=== PATIENT | female | born 1995 | race Caucasian/White ===

== ENCOUNTER → 2016-07-08 | Outpatient (CLI) | payer OTHER ==
[2016-07-08 17:56] LABS: Hepatitis B Surface Ag Index 0.05
[2016-07-09 01:03] LABS: HSV I IgG Interp NEGATIVE (NEGATIVE); HSV II IgG Interp NEGATIVE (NEGATIVE)
[2016-07-09 01:05] LABS: Treponemal Ab Non-Reactive (Non-Reactive)
[2016-07-09 07:59] LABS: HIV-1/HIV-2 Ab Screen NONREAC (NON REAC)
== END | disposition home or self-care (01) ==
LOC: LABWHC1 16:31
PROVIDERS: ATTEND Obstetrics & Gynecology
DX: Z11.3 Encounter for screening for infections with a predominantly sexual mode of transmission (principal)
CPT/HCPCS: 36415; 86695; 86696; 86780; 87340; 87389

== ENCOUNTER 2018-02-20 12:48 | Emergency (ER) | payer OTHER ==
[2018-02-20 13:17] VITALS: BP 111/75; PULSE 92; RESP 18; TEMP 98.3
[2018-02-20] MEDS ORDERED: SODIUM CHLORIDE 0.9% 1,000 ML IV STA ×2 (13:47)
[2018-02-20] MEDS ORDERED: MORPHINE SULFATE 4 MG/ML SYRINGE IV STA (13:47)
[2018-02-20] MEDS ORDERED: ONDANSETRON 4 MG/2 ML VIAL IVP STA (13:47)
[2018-02-20] MEDS ORDERED: diphenhydrAMINE 50 MG/ML 1 ML VIAL IVP STA (13:48)
[2018-02-20] MEDS ORDERED: PANTOPRAZOLE 40 MG/10 ML VIAL IVP STA (13:48)
--- NOTE | 2018-02-20 13:50 | ED ---
Nausea/Vomiting/Diarrhea HPI - General Chief complaint: Nausea/Vomiting/Diarrhea Stated complaint: Headache/Vomitting Time Seen by Provider: 02/20/18 13:46 Source: patient, RN notes reviewed, old records reviewed Mode of arrival: ambulatory Limitations: no limitations - History of Present Illness Initial comments: This is a 22-year-old female the ER for evaluation of one week of headache and nausea and vomiting. Persistent headache persistent nausea persistent vomiting persistent weakness not feeling well. Patient denies any recent change in medications takes no medications currently does have history of IBS. She has diarrhea but always has diarrhea. No fevers no travel history no sick contacts. Denies drugs or alcohol MD complaint: nausea, vomiting, diarrhea, abdominal pain -: days(s) (7) Description of Vomiting: bilious Description of Diarrhea: mucous Associated Abdominal Pain: Yes Location: diffuse Radiation: none Severity: moderate Severity scale (1-10): 4 Quality: aching Consistency: constant Improves with: none Worsens with: none Associated Symptoms: denies other symptoms - Related Data Home Medications Medication Instructions Recorded Confirmed Glycopyrrolate 1 mg PO BID 02/20/18 02/20/18 Norgestimate-Ethinyl Estradiol 1 tab PO DAILY 02/20/18 02/20/18 [Tri-Sprintec Tablet] Allergies Allergy/AdvReac Type Severity Reaction Status Date / Time No Known Allergies Allergy Verified 02/20/18 13:49 Review of Systems ROS Statement: Those systems with pertinent positive or pertinent negative responses have been documented in the HPI. ROS Other: All systems not noted in ROS Statement are negative. Past Medical History Additional Past Medical History / Comment(s): IBS History of Any Multi-Drug Resistant Organisms: None Reported Past Surgical History: No Surgical Hx Reported Past Psychological History: Anxiety, Depression Smoking Status: Former smoker Past Alcohol Use History: Occasional Past Drug Use History: None Reported General Exam Limitations: no limitations General appearance: alert, in no apparent distress Head exam: Present: atraumatic, normocephalic, normal inspection Eye exam: Present: normal appearance, PERRL, EOMI. Absent: scleral icterus, conjunctival injection, periorbital swelling ENT exam: Present: normal exam, mucous membranes moist Neck exam: Present: normal inspection. Absent: tenderness, meningismus, lymphadenopathy Respiratory exam: Present: normal lung sounds bilaterally. Absent: respiratory distress, wheezes, rales, rhonchi, stridor Cardiovascular Exam: Present: regular rate, normal rhythm, normal heart sounds. Absent: systolic murmur, diastolic murmur, rubs, gallop, clicks GI/Abdominal exam: Present: soft, normal bowel sounds. Absent: distended, tenderness, guarding, rebound, rigid Extremities exam: Present: normal inspection, full ROM, normal capillary refill. Absent: tenderness, pedal edema, joint swelling, calf tenderness Back exam: Present: normal inspection Neurological exam: Present: alert, oriented X3, CN II-XII intact Psychiatric exam: Present: normal affect, normal mood Skin exam: Present: warm, dry, intact, normal color. Absent: rash Course Vital Signs 02/20/18 13:15 Temperature 98.3 F Pulse Rate 92 Respiratory 18 Rate Blood Pressure 111/75 O2 Sat by Pulse 100 Oximetry - Reevaluation(s) Reevaluation #1: 02/20/18 17:24 Medical record is reviewed Reevaluation #2: 02/20/18 17:24 Patient continuing any persistent medication, pain medication Reevaluation #3: 02/20/18 17:24 Pain is controlled Medical Decision Making - Medical Decision Making 22 female the ER with multiple nonspecific complaints. Likely underlying viral illness, labwork is normal CT brain is negative. Patient given nausea medication from will be discharged - Lab Data Result diagrams: 02/20/18 14:05 02/20/18 14:05 Lab Results 02/20/18 02/20/18 02/20/18 Range/Units 14:05 14:05 14:05 WBC 6.0 (3.8-10.6) k/uL RBC 4.49 (3.80-5.40) m/uL Hgb 14.1 (11.4-16.0) gm/dL Hct 42.8 (34.0-46.0) % MCV 95.3 (80.0-100.0) fL MCH 31.3 (25.0-35.0) pg MCHC 32.9 (31.0-37.0) g/dL RDW 12.6 (11.5-15.5) % Plt Count 312 (150-450) k/uL Neutrophils % 39 % Lymphocytes % 44 % Monocytes % 7 % Eosinophils % 6 % Basophils % 1 % Neutrophils # 2.3 (1.3-7.7) k/uL Lymphocytes # 2.6 (1.0-4.8) k/uL Monocytes # 0.4 (0-1.0) k/uL Eosinophils # 0.4 (0-0.7) k/uL Basophils # 0.1 (0-0.2) k/uL Sodium 145 (137-145) mmol/L Potassium 4.2 (3.5-5.1) mmol/L Chloride 108 H (98-107) mmol/L Carbon Dioxide 25 (22-30) mmol/L Anion Gap 12 mmol/L BUN 7 (7-17) mg/dL Creatinine 0.77 (0.52-1.04) mg/dL Est GFR (CKD-EPI)AfAm >90 (>60 ml/min/1.73 sqM) Est GFR (CKD-EPI)NonAf >90 (>60 ml/min/1.73 sqM) Glucose 80 (74-99) mg/dL Calcium 10.1 (8.4-10.2) mg/dL Phosphorus 3.2 (2.5-4.5) mg/dL Magnesium 2.0 (1.6-2.3) mg/dL Total Bilirubin 1.0 (0.2-1.3) mg/dL AST 27 (14-36) U/L ALT 23 (9-52) U/L Alkaline Phosphatase 44 (38-126) U/L Total Creatine Kinase 152 H (30-135) U/L CK-MB (CK-2) 0.2 (0.0-2.4) ng/mL CK-MB (CK-2) Rel Index 0.1 Total Protein 8.0 (6.3-8.2) g/dL Albumin 4.6 (3.5-5.0) g/dL Lipase 55 (23-300) U/L Urine Color Urine Appearance (Clear) Urine pH (5.0-8.0) Ur Specific [place] (1.001-1.035) Urine Protein (Negative) Urine Glucose (UA) (Negative) Urine Ketones (Negative) Urine Blood (Negative) Urine Nitrite (Negative) Urine Bilirubin (Negative) Urine Urobilinogen (<2.0) mg/dL Ur Leukocyte Esterase (Negative) Urine HCG, Qual (Not Detectd) 02/20/18 02/20/18 Range/Units 14:45 14:45 WBC (3.8-10.6) k/uL RBC (3.80-5.40) m/uL Hgb (11.4-16.0) gm/dL Hct (34.0-46.0) % MCV (80.0-100.0) fL MCH (25.0-35.0) pg MCHC (31.0-37.0) g/dL RDW (11.5-15.5) % Plt Count (150-450) k/uL Neutrophils % % Lymphocytes % % Monocytes % % Eosinophils % % Basophils % % Neutrophils # (1.3-7.7) k/uL Lymphocytes # (1.0-4.8) k/uL Monocytes # (0-1.0) k/uL Eosinophils # (0-0.7) k/uL Basophils # (0-0.2) k/uL Sodium (137-145) mmol/L Potassium (3.5-5.1) mmol/L Chloride (98-107) mmol/L Carbon Dioxide (22-30) mmol/L Anion Gap mmol/L BUN (7-17) mg/dL Creatinine (0.52-1.04) mg/dL Est GFR (CKD-EPI)AfAm (>60 ml/min/1.73 sqM) Est GFR (CKD-EPI)NonAf (>60 ml/min/1.73 sqM) Glucose (74-99) mg/dL Calcium (8.4-10.2) mg/dL Phosphorus (2.5-4.5) mg/dL Magnesium (1.6-2.3) mg/dL Total Bilirubin (0.2-1.3) mg/dL AST (14-36) U/L ALT (9-52) U/L Alkaline Phosphatase (38-126) U/L Total Creatine Kinase (30-135) U/L CK-MB (CK-2) (0.0-2.4) ng/mL CK-MB (CK-2) Rel Index Total Protein (6.3-8.2) g/dL Albumin (3.5-5.0) g/dL Lipase (23-300) U/L Urine Color Yellow Urine Appearance Clear (Clear) Urine pH 6.0 (5.0-8.0) Ur Specific [place] 1.015 (1.001-1.035) Urine Protein Negative (Negative) Urine Glucose (UA) Negative (Negative) Urine Ketones Negative (Negative) Urine Blood Negative (Negative) Urine Nitrite Negative (Negative) Urine Bilirubin Negative (Negative) Urine Urobilinogen <2.0 (<2.0) mg/dL Ur Leukocyte Esterase Negative (Negative) Urine HCG, Qual Not Detected (Not Detectd) - Radiology Data Radiology results: report reviewed (CT brain is negative for acute disease), image reviewed Disposition Clinical Impression: Abdominal pain, Dehydration, Gastroenteritis, Headache Disposition: HOME SELF-CARE Instructions: Acute Nausea and Vomiting (ED), Acute Headache (ED) Is patient prescribed a controlled substance at d/c from ED?: No Referrals: None,Stated [Primary Care Provider] - 1-2 days
[2018-02-20 14:52] LABS: Basophils # (A) 0.1 k/uL (0-0.2); Basophils % (A) 1 %; Eosinophils # (A) 0.4 k/uL (0-0.7); Eosinophils % (A) 6 %; HCT 42.8 % (34.0-46.0); HGB 14.1 gm/dL (11.4-16.0); Lymphocytes # (A) 2.6 k/uL (1.0-4.8); Lymphocytes % (A) 44 %; MCH 31.3 pg (25.0-35.0); MCHC 32.9 g/dL (31.0-37.0); MCV 95.3 fL (80.0-100.0); Mean Platelet Volume 6.6; Monocytes # (A) 0.4 k/uL (0-1.0); Monocytes % (A) 7 %; Neutrophils # (A) 2.3 k/uL (1.3-7.7); Neutrophils % (A) 39 %; Platelet Count 312 k/uL (150-450); RBC 4.49 m/uL (3.80-5.40); RDW 12.6 % (11.5-15.5)
[2018-02-20 15:00] LABS: Appearance,Urine Clear (Clear); Bilirubin,Urine Negative (Negative); Blood,Urine Negative (Negative); Color,Urine Yellow; Glucose,Urine (UA) Negative (Negative); Ketones,Urine Negative (Negative); Leukocyte Esterase,Urine Negative (Negative); Nitrite,Urine Negative (Negative); Protein,Urine Negative (Negative); Specific Gravity,Urine 1.015 (1.001-1.035); Urobilinogen,Urine <2.0 mg/dL (<2.0)
[2018-02-20 15:14] LABS: ALT 23 U/L (9-52); AST 27 U/L (14-36); Albumin 4.6 g/dL (3.5-5.0); Alkaline Phosphatase 44 U/L (38-126); Anion Gap 12 mmol/L; Blood Urea Nitrogen 7 mg/dL (7-17); Calcium 10.1 mg/dL (8.4-10.2); Carbon Dioxide 25 mmol/L (22-30); Chloride 108 mmol/L (98-107); Glucose 80 mg/dL (74-99); Lipase 55 U/L (23-300); Phosphorus 3.2 mg/dL (2.5-4.5); Potassium 4.2 mmol/L (3.5-5.1); Sodium 145 mmol/L (137-145)
[2018-02-20 15:21] LABS: Creatine Kinase MB 0.2 ng/mL (0.0-2.4)
[2018-02-20] MEDS ORDERED: ACETAMINOPHEN IV (For NPO) 1,000 MG in EMPTY BAG 1 BAG IVPB STA (15:50)
[2018-02-20] MEDS ORDERED: METOCLOPRAMIDE 5 MG/ML 2 ML VIAL IVP STA (15:50)
--- NOTE | 2018-02-20 17:08 | CT ---
EXAMINATION TYPE: CT brain wo con DATE OF EXAM: 02/20/2018 COMPARISON: None HISTORY: headache, vomiting CT DLP: 1086.4 mGycm. Automated Exposure Control for Dose Reduction was Utilized. TECHNIQUE: CT scan of the head is performed without contrast. FINDINGS: There is no acute intracranial hemorrhage, mass effect, or midline shift identified. The ventricles and sulci are within normal limits in size. The globes are intact and the visualized sin uses are clear. IMPRESSION: No acute intracranial hemorrhage, mass effect, or midline shift is seen.
[2018-02-20] MEDS ORDERED: KETOROLAC 30 MG/ML 1 ML VIAL IVP STA (17:20)
[2018-02-20] MEDS ORDERED: DEXAMETHASONE SOD PHOSPHATE 10 MG/ML 1 ML VIAL IV STA (17:20)
== END 2018-02-20 18:04 | disposition home or self-care (01) ==
LOC: EC 12:48
DX: K52.9 Noninfective gastroenteritis and colitis, unspecified (principal); E86.0 Dehydration; R51 Headache; Z79.899 Other long term (current) drug therapy; Z87.891 Personal history of nicotine dependence
CPT/HCPCS: 36415; 80053; 82550; 82553; 83690; 83735; 84100; 85025; 81003; 81025; 87086; 70450; 99284; 96374; 96375 ×6; 96361 ×4; J2270; J1200; J1100; J2765; J2405; J1885; C9113

== ENCOUNTER 2018-02-23 16:50 | Emergency (ER) | payer OTHER ==
[2018-02-23] MEDS ORDERED: METOCLOPRAMIDE 5 MG/ML 2 ML VIAL IVP STA (17:22)
[2018-02-23] MEDS ORDERED: SODIUM CHLORIDE 0.9% 1,000 ML IV STA (17:22)
[2018-02-23] MEDS ORDERED: KETOROLAC 30 MG/ML 1 ML VIAL IVP STA (17:22)
[2018-02-23] MEDS ORDERED: diphenhydrAMINE 50 MG CAP PO STA (17:22)
--- NOTE | 2018-02-23 17:27 | ED ---
General Adult HPI - General Source: patient, RN notes reviewed Mode of arrival: ambulatory Limitations: no limitations <Darian Jenkins - Last Filed: 02/23/18 19:20> <Earl Resendiz - Last Filed: 02/23/18 21:32> - General Chief complaint: Psychiatric Symptoms Stated complaint: HEADACHE X 2 WEEKS + FLU SYMPTOMS Time Seen by Provider: 02/23/18 17:00 - History of Present Illness Initial comments: 22-year-old female since to the emergency department for multiple complaints. Patient states she has had a headache for 2 weeks. Patient was seen here in the emergency department a few days ago and states morphine helped with her pain. Patient states her neck feels tight and she feels like she has a sharp pain across her forehead. Patient states she has been increasingly stressed at home lately. She states that because of this she has developed suicidal thoughts. She states she has had suicidal thoughts and she was then years old but these have worsened. She has a history of anxiety and depression not being treated for this. Patient states she has cut her bilateral arms in the past few days and has a plan of suicide of shooting herself. Patient does have guns at home but they're locked and she does not know the code. Patient denies dysuria, states bowel movements are normal with the last one being earlier today. She states she has been nauseous and had mild abdominal pain over the past few days as well. Patient has no other complaints at this time including shortness of breath, chest pain, headache, or visual changes. (Darian Jenkins) - Related Data Home Medications Medication Instructions Recorded Confirmed Glycopyrrolate 1 mg PO BID 02/20/18 02/23/18 Previous Rx's Medication Instructions Recorded Ondansetron Odt [Zofran ODT] 4 mg PO Q8HR PRN #30 tab 02/20/18 Allergies Allergy/AdvReac Type Severity Reaction Status Date / Time No Known Allergies Allergy Verified 02/23/18 17:09 Review of Systems ROS Other: All systems not noted in ROS Statement are negative. <Darian Jenkins - Last Filed: 02/23/18 19:20> ROS Other: All systems not noted in ROS Statement are negative. <Earl Resendiz - Last Filed: 02/23/18 21:32> ROS Statement: Those systems with pertinent positive or pertinent negative responses have been documented in the HPI. Past Medical History Additional Past Medical History / Comment(s): IBS History of Any Multi-Drug Resistant Organisms: None Reported Past Surgical History: No Surgical Hx Reported Past Psychological History: Anxiety, Depression Smoking Status: Former smoker Past Alcohol Use History: Occasional Past Drug Use History: None Reported <Darian Jenkins P - Last Filed: 02/23/18 19:20> General Exam Limitations: no limitations General appearance: alert, in no apparent distress Head exam: Present: atraumatic, normocephalic, normal inspection Eye exam: Present: normal appearance, PERRL, EOMI. Absent: scleral icterus, conjunctival injection, periorbital swelling ENT exam: Present: normal exam, mucous membranes moist Neck exam: Present: normal inspection, full ROM. Absent: tenderness, meningismus, lymphadenopathy Respiratory exam: Present: normal lung sounds bilaterally. Absent: respiratory distress, wheezes, rales, rhonchi, stridor Cardiovascular Exam: Present: regular rate, normal rhythm, normal heart sounds. Absent: systolic murmur, diastolic murmur, rubs, gallop, clicks GI/Abdominal exam: Present: soft, tenderness (Mild generalized abdominal tenderness, negative Rovsing sign, negative Diehl sign), normal bowel sounds. Absent: distended, guarding, rebound, rigid Extremities exam: Present: other (Patient has superficial lacerations noted to the bilateral volar forearms.) Neurological exam: Present: alert, oriented X3, CN II-XII intact Psychiatric exam: Present: suicidal ideation. Absent: homicidal ideation <AliceDarian P - Last Filed: 02/23/18 19:20> General appearance: alert, in no apparent distress Head exam: Present: atraumatic, normocephalic, normal inspection Eye exam: Present: normal appearance, PERRL, EOMI. Absent: scleral icterus, conjunctival injection, periorbital swelling ENT exam: Present: normal exam, mucous membranes moist Neck exam: Present: normal inspection. Absent: tenderness, meningismus, lymphadenopathy Respiratory exam: Present: normal lung sounds bilaterally. Absent: respiratory distress, wheezes, rales, rhonchi, stridor Cardiovascular Exam: Present: regular rate, normal rhythm, normal heart sounds. Absent: systolic murmur, diastolic murmur, rubs, gallop, clicks GI/Abdominal exam: Present: soft, normal bowel sounds. Absent: distended, tenderness, guarding, rebound, rigid Extremities exam: Present: normal inspection, full ROM, normal capillary refill. Absent: tenderness, pedal edema, joint swelling, calf tenderness Back exam: Present: normal inspection Neurological exam: Present: alert, oriented X3, CN II-XII intact Psychiatric exam: Present: normal affect, normal mood Skin exam: Present: warm, dry, intact, normal color. Absent: rash <Earl Resendiz - Last Filed: 02/23/18 21:32> Course <Darian Jenkins - Last Filed: 02/23/18 19:20> <Earl Resendiz - Last Filed: 02/23/18 21:32> Vital Signs 02/23/18 02/23/18 16:56 20:29 Temperature 98.1 F Pulse Rate 95 62 Respiratory 18 18 Rate Blood Pressure 96/56 113/67 O2 Sat by Pulse 96 97 Oximetry - Reevaluation(s) Reevaluation #1: 02/23/18 21:31 Medical clear for psychiatric treatment (Earl Resendiz) Medical Decision Making - Lab Data Result diagrams: 02/23/18 17:45 02/23/18 17:45 <Darian Jenkins - Last Filed: 02/23/18 19:20> - Lab Data Result diagrams: 02/23/18 17:45 02/23/18 17:45 <Earl Resendiz - Last Filed: 02/23/18 21:32> - Medical Decision Making Patient presents for multiple complaints. She has had a headache for 2 weeks, no focal neuro deficits. Recently had a CAT scan 3 days ago, report was reviewed and negative. Patient has a lot of tenderness in the lateral aspect of the neck and states she has been under a lot of stress lately. This is likely tension headache. Patient has generalized abdominal abdominal tenderness , labs are within normal limits. Patient is having normal bowel movements, no concern for obstruction. She was eating [employer] as she was being triaged. Patient is suicidal and will be seen by psychology. (Darian Jenkins) 22-year-old female seen and evaluated with psychiatry, patient be transferred for inpatient psychiatric admission (Earl Resendiz) - Lab Data Lab Results 02/23/18 02/23/18 Range/Units 17:45 17:45 WBC 5.1 (3.8-10.6) k/uL RBC 4.26 (3.80-5.40) m/uL Hgb 13.1 (11.4-16.0) gm/dL Hct 40.5 (34.0-46.0) % MCV 95.2 (80.0-100.0) fL MCH 30.6 (25.0-35.0) pg MCHC 32.2 (31.0-37.0) g/dL RDW 12.7 (11.5-15.5) % Plt Count 301 (150-450) k/uL Neutrophils % 40 % Lymphocytes % 47 % Monocytes % 7 % Eosinophils % 2 % Basophils % 1 % Neutrophils # 2.0 (1.3-7.7) k/uL Lymphocytes # 2.4 (1.0-4.8) k/uL Monocytes # 0.4 (0-1.0) k/uL Eosinophils # 0.1 (0-0.7) k/uL Basophils # 0.1 (0-0.2) k/uL Sodium 144 (137-145) mmol/L Potassium 3.8 (3.5-5.1) mmol/L Chloride 109 H (98-107) mmol/L Carbon Dioxide 25 (22-30) mmol/L Anion Gap 10 mmol/L BUN 14 (7-17) mg/dL Creatinine 0.80 (0.52-1.04) mg/dL Est GFR (CKD-EPI)AfAm >90 (>60 ml/min/1.73 sqM) Est GFR (CKD-EPI)NonAf >90 (>60 ml/min/1.73 sqM) Glucose 76 (74-99) mg/dL Calcium 10.0 (8.4-10.2) mg/dL Total Bilirubin 0.6 (0.2-1.3) mg/dL AST 34 (14-36) U/L ALT 26 (9-52) U/L Alkaline Phosphatase 44 (38-126) U/L Total Protein 7.3 (6.3-8.2) g/dL Albumin 4.3 (3.5-5.0) g/dL Amylase 105 (30-110) U/L Lipase 103 (23-300) U/L Disposition <Darian Jenkins P - Last Filed: 02/23/18 19:20> Is patient prescribed a controlled substance at d/c from ED?: No <Earl Resendiz - Last Filed: 02/23/18 21:32> Clinical Impression: Depression, Suicidal ideation Disposition: TRANSFER TO PSYCH HOSP/UNIT Condition: Fair Referrals: None,Stated [Primary Care Provider] - 1-2 days
[2018-02-23 17:55] LABS: Basophils # (A) 0.1 k/uL (0-0.2); Basophils % (A) 1 %; Eosinophils # (A) 0.1 k/uL (0-0.7); Eosinophils % (A) 2 %; HCT 40.5 % (34.0-46.0); HGB 13.1 gm/dL (11.4-16.0); Lymphocytes # (A) 2.4 k/uL (1.0-4.8); Lymphocytes % (A) 47 %; MCH 30.6 pg (25.0-35.0); MCHC 32.2 g/dL (31.0-37.0); MCV 95.2 fL (80.0-100.0); Mean Platelet Volume 6.4; Monocytes # (A) 0.4 k/uL (0-1.0); Monocytes % (A) 7 %; Neutrophils % (A) 40 %; Platelet Count 301 k/uL (150-450); RBC 4.26 m/uL (3.80-5.40); RDW 12.7 % (11.5-15.5); WBC 5.1 k/uL (3.8-10.6)
[2018-02-23 18:05] LABS: ALT 26 U/L (9-52); AST 34 U/L (14-36); Albumin 4.3 g/dL (3.5-5.0); Alkaline Phosphatase 44 U/L (38-126); Amylase 105 U/L (30-110); Anion Gap 10 mmol/L; Blood Urea Nitrogen 14 mg/dL (7-17); Carbon Dioxide 25 mmol/L (22-30); Chloride 109 mmol/L (98-107); Glucose 76 mg/dL (74-99); Lipase 103 U/L (23-300); Potassium 3.8 mmol/L (3.5-5.1); Sodium 144 mmol/L (137-145); Total Bilirubin 0.6 mg/dL (0.2-1.3); Total Protein 7.3 g/dL (6.3-8.2)
[2018-02-24 03:48] LABS: Amphetamine Screen,Urine Not Detected (NotDetected); Barbiturate Screen,Urine Not Detected (NotDetected); Benzodiazepines Screen,Urine Detected (NotDetected); Cocaine Screen,Urine Detected (NotDetected); Methadone Screen, Urine Not Detected (NotDetected); Opiate Screen,Urine Not Detected (NotDetected); Oxycodone Screen, Urine Not Detected (NotDetected); Phencyclidine Screen,Urine Not Detected (NotDetected); Tricyclic Antidepressant,Urine Not Detected (NotDetected); Urn Cannabinoid Scrn Not Detected (NotDetected)
[2018-02-24 03:58] LABS: Amorphous Sediment,Urine Occasional /hpf; Appearance,Urine Cloudy (Clear); Bilirubin,Urine Negative (Negative); Blood,Urine Negative (Negative); Color,Urine Yellow; Glucose,Urine (UA) Negative (Negative); Ketones,Urine Negative (Negative); Leukocyte Esterase,Urine Negative (Negative); Mucus,Urine Moderate /hpf; Nitrite,Urine Negative (Negative); Protein,Urine Trace (Negative); RBC,Urine 1 /hpf (0-5); Specific Gravity,Urine 1.027 (1.001-1.035); Squamous Epithelial Cell,Urine 5 /hpf (0-4); Urobilinogen,Urine <2.0 mg/dL (<2.0); WBC,Urine 3 /hpf (0-5)
[2018-02-24 07:29] VITALS: BP 110/54; PULSE 65; RESP 19; TEMP 98.2
[2018-02-25 13:36] LABS: C. trachomatis,PCR Negative (Neg,Equiv); Chlamydia trachomatis Source Urine; N. gonorrhoeae,PCR Negative (Neg,Equiv); Neisseria Source Urine
== END 2018-02-24 07:16 ==
LOC: EC 16:50
DX: F32.9 Major depressive disorder, single episode, unspecified (principal); R45.851 Suicidal ideations; Z87.891 Personal history of nicotine dependence; Z79.899 Other long term (current) drug therapy
CPT/HCPCS: 36415; 80053; 82150; 83690; 85025; 81001; 81025; 87491; 87591; 80306; 99284; 96374; 96375; 96361; J2765; J1885

== ENCOUNTER 2018-03-21 11:15 | Emergency (ER) | payer OTHER ==
[2018-03-21] MEDS ORDERED: ACETAMINOPHEN TAB 325 MG TAB PO STA (11:47)
--- NOTE | 2018-03-21 11:49 | ED ---
General Adult HPI - General Chief complaint: Head Injury Stated complaint: head injury Time Seen by Provider: 03/21/18 11:20 Source: patient, RN notes reviewed Mode of arrival: wheelchair Limitations: no limitations - History of Present Illness Initial comments: 22-year-old female presents to the emergency department for a chief complaint of head injury occurring 3 hours ago. Patient states she dropped her phone on the floor. She states she bent down to brain picker her phone and hit the front of her head against a dresser. Patient did not lose consciousness. No blood thinners. Patient states she felt weak and had a headache at work so they wanted her to be evaluated. Patient states her headache is severe and she has photophobia. She denies nausea or vomiting. She states she feels somewhat unsteady when walking.Patient has no other complaints at this time including shortness of breath, chest pain, abdominal pain, nausea or vomiting, headache, or visual changes. - Related Data Home Medications Medication Instructions Recorded Confirmed OXcarbazepine [Trileptal] 300 mg PO BID 03/21/18 03/21/18 buPROPion XL [Wellbutrin Xl] 150 mg PO DAILY 03/21/18 03/21/18 Allergies Allergy/AdvReac Type Severity Reaction Status Date / Time No Known Allergies Allergy Verified 03/21/18 11:41 Review of Systems ROS Statement: Those systems with pertinent positive or pertinent negative responses have been documented in the HPI. ROS Other: All systems not noted in ROS Statement are negative. Past Medical History Additional Past Medical History / Comment(s): IBS History of Any Multi-Drug Resistant Organisms: None Reported Past Surgical History: No Surgical Hx Reported Past Psychological History: Anxiety, Depression Smoking Status: Former smoker Past Alcohol Use History: Occasional Past Drug Use History: None Reported General Exam Limitations: no limitations General appearance: alert, in no apparent distress Head exam: Present: normocephalic, normal inspection. Absent: atraumatic ( patient has contusion noted to left frontal bone) Eye exam: Present: PERRL, EOMI, conjunctival injection (minimal conjunctival injection). Absent: scleral icterus, periorbital swelling (no signif periorbital swelling) ENT exam: Present: normal exam, mucous membranes moist Neck exam: Present: normal inspection, full ROM. Absent: tenderness, meningismus, lymphadenopathy Respiratory exam: Present: normal lung sounds bilaterally. Absent: respiratory distress, wheezes, rales, rhonchi, stridor Cardiovascular Exam: Present: regular rate, normal rhythm, normal heart sounds. Absent: systolic murmur, diastolic murmur, rubs, gallop, clicks Neurological exam: Present: alert, oriented X3, CN II-XII intact Expanded Patient oriented to: Present: person, place, time Speech: Present: fluid speech Cranial nerves: EOM's Intact: Normal, Gag Reflex: Normal, Nystagmus: Normal, Facial Sensation: Normal Cerebellar function: Finger to Nose: Normal, Heel to [place]: Normal, Romberg: Normal Upper motor neuron: Pronator Drift: Normal Sensory exam: Upper Extremity Light Touch: Normal, Upper Extremity Pin Prick: Normal, Lower Extremity Light Touch: Normal, Lower Extremity Pin Prick: Normal Motor strength exam: RUE: 5, LUE: 5, RLE: 5, LLE: 5 Eye Response: (4) open spontaneously Motor Response: (6) obeys commands Verbal Response: (5) oriented [place] Total: 15 Psychiatric exam: Present: normal affect, normal mood Course Vital Signs 03/21/18 03/21/18 11:17 13:18 Temperature 98.3 F 97 F L Pulse Rate 114 H 110 H Respiratory 20 18 Rate Blood Pressure 118/78 107/70 O2 Sat by Pulse 96 99 Oximetry Medical Decision Making - Medical Decision Making 22-year-old female presents after bending down and hitting her head on a dresser. Patient has a contusion noted above the left eyebrow. Neurologically intact. No focal neuro deficits. Patient is well-appearing. She states work told her to come in and get evaluated because she was cleaning a headache. Patient currently rates her headache as a 7 out of 10 admits to photophobia. She denies any neck pain whatsoever. Brain CT shows no acute focal lesion, mass effect, or midline shift. No evidence of intracranial blood. At this time the patient may develop concussion. Discussed rest as well as Motrin and Tylenol for pain. Discussed following up with primary care provider. Discussed returning if patient has any worsening symptoms. Patient is mildly tachycardic on discharge, does admit to feeling slightly anxious, likely cause. Disposition Clinical Impression: Head injury Disposition: HOME SELF-CARE Condition: Good Instructions: Concussion (ED), Head Injury (ED) Additional Instructions: Please follow up with primary care in 1-2 days. Take Motrin and Tylenol for pain. Return if you have any worsening symptoms. Is patient prescribed a controlled substance at d/c from ED?: No Referrals: Veronica Hines MD [STAFF PHYSICIAN] - 1-2 days Time of Disposition: 12:52
--- NOTE | 2018-03-21 12:37 | CT ---
EXAMINATION TYPE: CT brain wo con DATE OF EXAM: 03/21/2018 COMPARISON: Previous study dated 02/20/2018. HISTORY: Head injury CT DLP: 975.9 mGycm Automated exposure control for dose reduction was used. FINDINGS: Central structures are midline. There is no evidence of hydrocephalus. No acute focal lesion, mass ef fect or midline shift is seen. I do not see evidence of intracranial blood. Visualized portions of the paranasal sinuses and mastoids are clear. The bony calvarium is intact. IMPRESSION: NORMAL CT SCAN OF THE BRAIN.
[2018-03-21] MEDS ORDERED: KETOROLAC 30 MG/ML 1 ML VIAL IM STA (12:55)
[2018-03-21 13:19] VITALS: BP 107/70; PULSE 110; RESP 18; TEMP 97
== END 2018-03-21 13:18 | disposition home or self-care (01) ==
LOC: EC 11:15
DX: S00.83XA Contusion of other part of head, initial encounter (principal); F32.9 Major depressive disorder, single episode, unspecified; F41.9 Anxiety disorder, unspecified; Z87.891 Personal history of nicotine dependence; Z79.899 Other long term (current) drug therapy; W22.8XXA Striking against or struck by other objects, initial encounter; Y92.009 Unspecified place in unspecified non-institutional (private) residence as the place of occurrence of the external cause
CPT/HCPCS: 70450; 99284; 96372; J1885

== ENCOUNTER 2018-09-27 19:57 | Emergency (ER) | payer OTHER ==
[2018-09-27] MEDS ORDERED: KETOROLAC 60 MG/2 ML VIAL IM STA (20:41)
--- NOTE | 2018-09-27 20:56 | ED ---
General Adult HPI - General Chief complaint: Extremity Injury, Lower Stated complaint: Leg Pain/hematoma Time Seen by Provider: 09/27/18 20:28 Source: patient, RN notes reviewed, old records reviewed Mode of arrival: ambulatory Limitations: physical limitation - History of Present Illness Initial comments: 22-year-old female patient presents to ED for bruise on her medial thigh region. Patient reports that she did the splits 2 days ago, had no pain in the time. Patient woke up yesterday and had some mild ecchymoses in her inner thigh region, woke up today and ecchymoses have worsened. Patient was seen in urgent care yesterday where they gave her muscle relaxers which did offer her relief. Patient does have pain in the area. Patient is still ambulatory. Patient denies any other complaints at this time. Patient states that she cannot be . Systemic: Pt denies fatigue, fever/chills, rash. Pt denies weakness, night sweats, weight loss. Neuro: Pt denies headache, visual disturbances, syncope or pre-syncope. HEENT: Pt denies ocular discharge or irritation, otalgia, rhinorrhea, pharyngitis or notable lymphadenopathy. Cardiopulmonary: Pt denies chest pain, SOB, heart palpitations, dyspnea on exertion. Abdominal/GI: Pt denies abdominal pain, n/v/d. : Pt denies dysuria, burning w/ urination, frequency/urgency. Denies new onset urinary or bowel incontinence. MSK: Pt denies myalgia, loss of strength or function in extremities. Neuro: Pt denies new onset weakness, paresthesias. - Related Data Home Medications Medication Instructions Recorded Confirmed OXcarbazepine [Trileptal] 300 mg PO BID 03/21/18 03/21/18 buPROPion XL [Wellbutrin Xl] 150 mg PO DAILY 03/21/18 03/21/18 Allergies Allergy/AdvReac Type Severity Reaction Status Date / Time No Known Allergies Allergy Verified 03/21/18 11:41 Review of Systems ROS Statement: Those systems with pertinent positive or pertinent negative responses have been documented in the HPI. ROS Other: All systems not noted in ROS Statement are negative. Past Medical History Additional Past Medical History / Comment(s): IBS History of Any Multi-Drug Resistant Organisms: None Reported Past Surgical History: No Surgical Hx Reported Past Psychological History: Anxiety, Depression Smoking Status: Former smoker Past Alcohol Use History: Occasional Past Drug Use History: None Reported General Exam - General Exam Comments Initial Comments: Constitutional: NAD, AOX3, Pt has pleasant affect. HEENT: NC/AT, trachea midline, neck supple, no lymphadenopathy. Posterior pharynx non erythematous, without exudates. External ears appear normal, without discharge. Mucous membranes moist. Eyes PERRLA, EOM intact. There is no scleral icterus. No pallor noted. Cardiopulmonary: RRR, no murmurs, rubs or gallops, no JVD noted. Lungs CTAB in anterior and posterior bro. No peripheral edema. Abdominal exam: Abdomen soft and non-distended. Abdomen non-tender to palpation in all 4 quadrants. Bowel sounds active in LLQ. No hepatosplenomegaly. No ecchymosis Neuro: CN II-XII grossly intact. No nuchal rigidity. No raccon eyes, no agrawal sign, no hemotympanum. No cervical spinal tenderness. MSK: Moderate ecchymoses noted on medial right thigh region. Mildly tender to palpation. No streaking or cellulitic changes. No discharge. Posterior tibialis pulse +2 bilaterally and equal. No posterior calf tenderness bilaterally, homans sign negative bilaterally. Radial pulse +2 bilaterally. Sensation intact in upper and lower extremities. Full active ROM in upper and lower extremities, 5/5 stregnth. Limitations: physical limitation Course Vital Signs 09/27/18 09/27/18 20:15 22:54 Temperature 97.9 F 99.8 F H Pulse Rate 91 88 Respiratory 17 18 Rate Blood Pressure 118/78 118/82 O2 Sat by Pulse 97 99 Oximetry Medical Decision Making - Medical Decision Making 22-year-old female patient presents to ED for bruise on her medial thigh region. Patient reports that she did the splits 2 days ago, had no pain in the time. Patient woke up yesterday and had some mild ecchymoses in her inner thigh region, woke up today and ecchymoses have worsened. Patient was seen in urgent care yesterday where they gave her muscle relaxers which did offer her relief. Patient does have pain in the area. Patient is still ambulatory. Patient denies any other complaints at this time. Patient states that she cannot be . Pt VSS, afebrile. Physical exam displayed: Moderate ecchymoses noted on medial right thigh region. Mildly tender to palpation. No streaking or cellulitic changes. No discharge. Right lower extremity ultrasound displayed no evidence of DVT. Patient discharged with oral analgesic, will follow up with primary care provider and follow up with orthopedic consult symptoms persist. Return precautions discussed. Case discussed with Dr. Nelson. Disposition Clinical Impression: Myalgia Disposition: HOME SELF-CARE Condition: Stable Instructions (If sedation given, give patient instructions): Musculoskeletal Pain (ED) Additional Instructions: Patient to adhere to previously discussed treatment plan and will take medication(s) as directed. Patient to follow up with PCP in 1-2 days. Patient to return to ED if symptoms do not improve. Follow-up with primary care provider tomorrow. Return to ER if condition worsens in any way. Follow up with orthopedic consult symptoms persist. Is patient prescribed a controlled substance at d/c from ED?: No Referrals: Lani Andrade MD [Primary Care Provider] - 1-2 days Liam Box MD [STAFF PHYSICIAN] - 1-2 days
--- NOTE | 2018-09-27 22:18 | US ---
EXAM: US Duplex Right Lower Extremity Veins CLINICAL HISTORY: ITS.REASON US Reason: Pain TECHNIQUE: Real-time duplex ultrasound scan of the right lower extremity veins integrating B-mode two-dimensional vascular structure, Doppler spectral analysis, color flow Doppler imaging and compression. COMPARISON: No relevant prior studies available. FINDINGS: Deep veins: No DVT in the visualized right lower extremity veins. Superficial veins: Unremarkable as visualized. Soft tissues: No acute findings. IMPRESSION: No evidence of deep venous thrombosis.
[2018-09-27] MEDS ORDERED: ACET/COD 300 MG/30 MG STARTER PACK 6 TAB BTL PO STA (22:25)
[2018-09-27 22:56] VITALS: BP 118/82; PULSE 88; RESP 18; TEMP 99.8
== END 2018-09-27 22:54 | disposition home or self-care (01) ==
LOC: EC 19:57
DX: M79.18 Myalgia, other site (principal); S70.11XA Contusion of right thigh, initial encounter; F41.9 Anxiety disorder, unspecified; F32.9 Major depressive disorder, single episode, unspecified; Z87.891 Personal history of nicotine dependence; Z79.899 Other long term (current) drug therapy; X58.XXXA Exposure to other specified factors, initial encounter
CPT/HCPCS: 99284

== ENCOUNTER 2019-01-02 10:07 | Emergency (ER) | payer OTHER ==
[2019-01-02 10:20] VITALS: RESP 18; TEMP 98.1
[2019-01-02] MEDS ORDERED: IPRATROPIUM-ALBUTEROL 3 ML NEB INHALATION STA (10:40)
--- NOTE | 2019-01-02 10:40 | ED ---
General Adult HPI - General Chief complaint: Shortness of Breath Stated complaint: Sob/hurts to breathe Time Seen by Provider: 01/02/19 10:23 Source: patient, RN notes reviewed Mode of arrival: ambulatory Limitations: no limitations - History of Present Illness Initial comments: This a 23-year-old female presents emergency department to complaint of dyspnea. Patient states that she said increased dyspnea, right-sided chest wall pain. Patient states that she has been using inhalants states that she primarily uses duster's. Patient states that she's been using the last 2 months. Patient states that she has no prior lung disease. Patient states she feels short of breath at rest worse with ambulation. Patient denies any cardiac issues. Patient denies any nausea vomiting. Patient denies any fevers, chills, productive cough. Patient states that she does have prescription benzodiazepines - Related Data Home Medications Medication Instructions Recorded Confirmed OXcarbazepine [Trileptal] 300 mg PO BID 03/21/18 03/21/18 buPROPion XL [Wellbutrin Xl] 150 mg PO DAILY 03/21/18 03/21/18 Previous Rx's Medication Instructions Recorded Ibuprofen [Motrin] 600 mg PO Q8HR PRN #30 tab 01/02/19 predniSONE 50 mg PO DAILY #5 tab 01/02/19 Allergies Allergy/AdvReac Type Severity Reaction Status Date / Time No Known Allergies Allergy Verified 01/02/19 10:14 Review of Systems ROS Statement: Those systems with pertinent positive or pertinent negative responses have been documented in the HPI. ROS Other: All systems not noted in ROS Statement are negative. Past Medical History Additional Past Medical History / Comment(s): IBS History of Any Multi-Drug Resistant Organisms: None Reported Past Surgical History: No Surgical Hx Reported Past Psychological History: Anxiety, Depression Smoking Status: Former smoker Past Alcohol Use History: Occasional Past Drug Use History: None Reported General Exam Limitations: no limitations General appearance: alert, in no apparent distress Head exam: Present: atraumatic, normocephalic, normal inspection Eye exam: Present: normal appearance, PERRL, EOMI. Absent: scleral icterus, conjunctival injection, periorbital swelling ENT exam: Present: normal exam, mucous membranes moist Neck exam: Present: normal inspection, full ROM. Absent: tenderness, meningismus, lymphadenopathy Respiratory exam: Present: normal lung sounds bilaterally, chest wall tenderness (Moderate right-sided). Absent: respiratory distress, wheezes, rales, rhonchi, stridor Cardiovascular Exam: Present: normal rhythm, tachycardia, normal heart sounds. Absent: systolic murmur, diastolic murmur, rubs, gallop, clicks GI/Abdominal exam: Present: soft, normal bowel sounds. Absent: distended, tenderness, guarding, rebound, rigid Course Vital Signs 01/02/19 01/02/19 01/02/19 10:14 11:04 11:13 Temperature 98.1 F Pulse Rate 125 H 79 81 Respiratory 18 Rate Blood Pressure 117/77 O2 Sat by Pulse 96 Oximetry EKG Findings - EKG Comments: EKG Findings:: EKG performed at 10:52 sinus rhythm with rate of 86 pr 112 qrs 92 qt/ qtc 376/449 - EKG Results: EKG: interpreted by CAMMY Medical Decision Making - Medical Decision Making Chest x-rays unremarkable patient did have labs, EKG secondary to tachycardic heart rate, with complaints which unremarkable. Patient's pain is reproducible most likely related to inflammation of her chest wall, landing. Patient be treated with anti-inflammatories, steroids. Return parameters were discussed. - Lab Data Result diagrams: 01/02/19 10:58 01/02/19 10:58 Lab Results 01/02/19 01/02/19 01/02/19 Range/Units 10:58 10:58 10:58 WBC 7.4 (3.8-10.6) k/uL RBC 4.37 (3.80-5.40) m/uL Hgb 13.5 (11.4-16.0) gm/dL Hct 41.1 (34.0-46.0) % MCV 94.1 (80.0-100.0) fL MCH 30.9 (25.0-35.0) pg MCHC 32.8 (31.0-37.0) g/dL RDW 12.6 (11.5-15.5) % Plt Count 315 (150-450) k/uL Neutrophils % 67 % Lymphocytes % 18 % Monocytes % 9 % Eosinophils % 4 % Basophils % 1 % Neutrophils # 5.0 (1.3-7.7) k/uL Lymphocytes # 1.3 (1.0-4.8) k/uL Monocytes # 0.6 (0-1.0) k/uL Eosinophils # 0.3 (0-0.7) k/uL Basophils # 0.1 (0-0.2) k/uL D-Dimer <0.17 (<0.60) mg/L FEU Sodium 144 (137-145) mmol/L Potassium 3.7 (3.5-5.1) mmol/L Chloride 108 H (98-107) mmol/L Carbon Dioxide 23 (22-30) mmol/L Anion Gap 13 mmol/L BUN 5 L (7-17) mg/dL Creatinine 0.89 (0.52-1.04) mg/dL Est GFR (CKD-EPI)AfAm >90 (>60 ml/min/1.73 sqM) Est GFR (CKD-EPI)NonAf >90 (>60 ml/min/1.73 sqM) Glucose 114 H (74-99) mg/dL Calcium 9.6 (8.4-10.2) mg/dL Total Bilirubin 0.9 (0.2-1.3) mg/dL AST 20 (14-36) U/L ALT 12 (9-52) U/L Alkaline Phosphatase 111 (38-126) U/L Total Protein 7.5 (6.3-8.2) g/dL Albumin 4.6 (3.5-5.0) g/dL Disposition Clinical Impression: Costochondritis, Inhalant abuse Disposition: HOME SELF-CARE Condition: Stable Instructions (If sedation given, give patient instructions): Costochondritis (ED) Additional Instructions: Please return to the Emergency Department if symptoms worsen or any other concerns. Prescriptions: Ibuprofen [Motrin] 600 mg PO Q8HR PRN #30 tab PRN Reason: Pain predniSONE 50 mg PO DAILY #5 tab Is patient prescribed a controlled substance at d/c from ED?: No Referrals: Lani Andrade MD [Primary Care Provider] - 1-2 days Time of Disposition: 11:39
--- NOTE | 2019-01-02 10:47 | XR ---
EXAMINATION TYPE: XR chest 2V DATE OF EXAM ORDERED: 01/02/2019 HISTORY: sob, right side pain. REFERENCE: None. FINDINGS: The lungs are clear. Pleural spaces are clear. Heart size is normal. IMPRESSION: NORMAL CHEST.
[2019-01-02 11:15] LABS: Basophils # (A) 0.1 k/uL (0-0.2); Basophils % (A) 1 %; Eosinophils # (A) 0.3 k/uL (0-0.7); Eosinophils % (A) 4 %; HCT 41.1 % (34.0-46.0); HGB 13.5 gm/dL (11.4-16.0); Lymphocytes # (A) 1.3 k/uL (1.0-4.8); Lymphocytes % (A) 18 %; MCH 30.9 pg (25.0-35.0); MCHC 32.8 g/dL (31.0-37.0); MCV 94.1 fL (80.0-100.0); Mean Platelet Volume 6.3; Monocytes # (A) 0.6 k/uL (0-1.0); Monocytes % (A) 9 %; Neutrophils % (A) 67 %; Platelet Count 315 k/uL (150-450); RBC 4.37 m/uL (3.80-5.40); RDW 12.6 % (11.5-15.5); WBC 7.4 k/uL (3.8-10.6)
[2019-01-02 11:24] LABS: ALT 12 U/L (9-52); AST 20 U/L (14-36); African American GFR (CKD) >90 (>60 ml/min/1.73 sqM); Albumin 4.6 g/dL (3.5-5.0); Alkaline Phosphatase 111 U/L (38-126); Anion Gap 13 mmol/L; Blood Urea Nitrogen 5 mg/dL (7-17); Calcium 9.6 mg/dL (8.4-10.2); Carbon Dioxide 23 mmol/L (22-30); Chloride 108 mmol/L (98-107); Glucose 114 mg/dL (74-99); Potassium 3.7 mmol/L (3.5-5.1); Sodium 144 mmol/L (137-145); Total Bilirubin 0.9 mg/dL (0.2-1.3); Total Protein 7.5 g/dL (6.3-8.2)
[2019-01-02] MEDS ORDERED: KETOROLAC 30 MG/ML 1 ML VIAL IVP STA (11:34)
[2019-01-02] MEDS ORDERED: ONDANSETRON 4 MG/2 ML VIAL IVP STA (12:10)
[2019-01-02] MEDS ORDERED: diphenhydrAMINE 50 MG/ML 1 ML VIAL IVP STA (12:10)
[2019-01-02] MEDS ORDERED: ONDANSETRON 4 MG TAB PO STA (12:18)
[2019-01-02 12:48] VITALS: BP 118/78; PULSE 80
== END 2019-01-02 12:40 | disposition home or self-care (01) ==
LOC: EC 10:07
DX: F18.10 Inhalant abuse, uncomplicated (principal); M94.0 Chondrocostal junction syndrome [Tietze]; R00.0 Tachycardia, unspecified; R06.02 Shortness of breath; F32.9 Major depressive disorder, single episode, unspecified; F41.9 Anxiety disorder, unspecified; Z87.891 Personal history of nicotine dependence; Z79.899 Other long term (current) drug therapy; Z53.8 Procedure and treatment not carried out for other reasons
CPT/HCPCS: 36415; 94640; 93005; 85379; 80053; 85025; 71046; 99285; 96374; J1885

== ENCOUNTER 2019-01-03 13:04 | Emergency (ER) | payer OTHER ==
[2019-01-03] MEDS ORDERED: KETOROLAC 30 MG/ML 1 ML VIAL IVP STA (13:47)
[2019-01-03 14:09] LABS: Basophils % (A) 0 %; Eosinophils % (A) 0 %; HCT 40.6 % (34.0-46.0); Lymphocytes # (A) 1.7 k/uL (1.0-4.8); Lymphocytes % (A) 13 %; MCH 32.4 pg (25.0-35.0); MCHC 34.5 g/dL (31.0-37.0); Mean Platelet Volume 5.8; Monocytes # (A) 0.7 k/uL (0-1.0); Monocytes % (A) 6 %; Neutrophils % (A) 80 %; Platelet Count 348 k/uL (150-450); RBC 4.32 m/uL (3.80-5.40); RDW 12.2 % (11.5-15.5); WBC 12.6 k/uL (3.8-10.6)
[2019-01-03 14:16] LABS: ALT 15 U/L (9-52); AST 18 U/L (14-36); African American GFR (CKD) >90 (>60 ml/min/1.73 sqM); Albumin 4.7 g/dL (3.5-5.0); Alkaline Phosphatase 142 U/L (38-126); Anion Gap 17 mmol/L; Blood Urea Nitrogen 7 mg/dL (7-17); Calcium 10.4 mg/dL (8.4-10.2); Carbon Dioxide 20 mmol/L (22-30); Chloride 109 mmol/L (98-107); Glucose 117 mg/dL (74-99); Potassium 3.1 mmol/L (3.5-5.1); Sodium 146 mmol/L (137-145); Total Protein 7.9 g/dL (6.3-8.2)
[2019-01-03 14:19] LABS: Appearance,Urine Cloudy (Clear); Bacteria,Urine Moderate /hpf; Bilirubin,Urine Negative (Negative); Blood,Urine Negative (Negative); Color,Urine Yellow; Glucose,Urine (UA) Negative (Negative); Ketones,Urine 1+ (Negative); Leukocyte Esterase,Urine Negative (Negative); Mucus,Urine Occasional /hpf; Nitrite,Urine Negative (Negative); PH, Urine 5.5 (5.0-8.0); Protein,Urine Trace (Negative); Specific Gravity,Urine 1.016 (1.001-1.035); Squamous Epithelial Cell,Urine 18 /hpf (0-4); Urobilinogen,Urine <2.0 mg/dL (<2.0)
--- NOTE | 2019-01-03 14:30 | ED ---
Abdominal Pain HPI - General Chief Complaint: Abdominal Pain Stated Complaint: Lower Abd Pain, ovarian cyst Time Seen by Provider: 01/03/19 13:45 Source: patient, RN notes reviewed Mode of arrival: ambulatory Limitations: no limitations - History of Present Illness Initial Comments: 23-year-old female presents emergency Department chief complaint of lower abdominal pain. Patient states that the pain has always been on and off but has worsened recently. She's been told that there is an ovarian cyst. She is appointment next month with Dr. Figueroa her [employer]. Patient denies any chance and vaginal bleeding or vaginal discharge. She does admit to slight dysuria. She has had some intermittent nausea vomiting with no diarrhea no constipation. - Related Data Home Medications Medication Instructions Recorded Confirmed ALPRAZolam [Xanax] 1 - 2 mg PO DAILY PRN 01/03/19 01/03/19 Amoxicillin 500 mg PO Q8H 01/03/19 01/03/19 Fluticasone Nasal [place] [Flonase 1 spray EA NOSTRIL BID 01/03/19 01/03/19 Nasal [place]] HYDROcodone/APAP 5-325MG [[place] 0.5 - 1 tab PO DAILY PRN 01/03/19 01/03/19 5-325] Loratadine [Claritin] 10 mg PO DAILY 01/03/19 01/03/19 Methocarbamol [Robaxin] 500 mg PO BID PRN 01/03/19 01/03/19 Previous Rx's Medication Instructions Recorded Ibuprofen [Motrin] 600 mg PO Q8HR PRN #30 tab 01/02/19 Cephalexin [Keflex] 500 mg PO Q8HR #15 cap 01/03/19 Allergies Allergy/AdvReac Type Severity Reaction Status Date / Time No Known Allergies Allergy Verified 01/03/19 14:05 Review of Systems ROS Statement: Those systems with pertinent positive or pertinent negative responses have been documented in the HPI. ROS Other: All systems not noted in ROS Statement are negative. Past Medical History Additional Past Medical History / Comment(s): IBS History of Any Multi-Drug Resistant Organisms: None Reported Past Surgical History: No Surgical Hx Reported Past Psychological History: Anxiety, Depression Smoking Status: Former smoker Past Alcohol Use History: Occasional Past Drug Use History: None Reported General Exam Limitations: no limitations General appearance: alert, in no apparent distress Head exam: Present: atraumatic, normocephalic, normal inspection Eye exam: Present: normal appearance, PERRL, EOMI. Absent: scleral icterus, conjunctival injection, periorbital swelling Respiratory exam: Present: normal lung sounds bilaterally. Absent: respiratory distress, wheezes, rales, rhonchi, stridor Cardiovascular Exam: Present: regular rate, normal rhythm, normal heart sounds. Absent: systolic murmur, diastolic murmur, rubs, gallop, clicks GI/Abdominal exam: Present: soft, tenderness (Tenderness to left lower quadrant), normal bowel sounds. Absent: distended, guarding, rebound, rigid Back exam: Absent: CVA tenderness (R), CVA tenderness (L) Neurological exam: Present: alert, oriented X3 Skin exam: Present: warm, dry, intact, normal color. Absent: rash Course Vital Signs 01/03/19 13:27 Temperature 98.4 F Pulse Rate 110 H Respiratory 20 Rate Blood Pressure 129/73 O2 Sat by Pulse 100 Oximetry Medical Decision Making - Medical Decision Making Ultrasound was unremarkable: Shows full acute changes. Patient's labwork does show mild hypokalemia though consistent with prior lab work done yesterday. Patient does have some urinary symptoms and there is mild/moderate bacteria patient be treated for urinary tract infection return parameters were discussed. - Lab Data Result diagrams: 01/03/19 13:44 01/03/19 13:44 Lab Results 01/03/19 01/03/19 01/03/19 Range/Units 13:44 13:44 13:44 WBC 12.6 H (3.8-10.6) k/uL RBC 4.32 (3.80-5.40) m/uL Hgb 14.0 (11.4-16.0) gm/dL Hct 40.6 (34.0-46.0) % MCV 94.0 (80.0-100.0) fL MCH 32.4 (25.0-35.0) pg MCHC 34.5 (31.0-37.0) g/dL RDW 12.2 (11.5-15.5) % Plt Count 348 (150-450) k/uL Neutrophils % 80 % Lymphocytes % 13 % Monocytes % 6 % Eosinophils % 0 % Basophils % 0 % Neutrophils # 10.0 H (1.3-7.7) k/uL Lymphocytes # 1.7 (1.0-4.8) k/uL Monocytes # 0.7 (0-1.0) k/uL Eosinophils # 0.0 (0-0.7) k/uL Basophils # 0.0 (0-0.2) k/uL Sodium (137-145) mmol/L Potassium (3.5-5.1) mmol/L Chloride (98-107) mmol/L Carbon Dioxide (22-30) mmol/L Anion Gap mmol/L BUN (7-17) mg/dL Creatinine (0.52-1.04) mg/dL Est GFR (CKD-EPI)AfAm (>60 ml/min/1.73 sqM) Est GFR (CKD-EPI)NonAf (>60 ml/min/1.73 sqM) Glucose (74-99) mg/dL Calcium (8.4-10.2) mg/dL Total Bilirubin (0.2-1.3) mg/dL AST (14-36) U/L ALT (9-52) U/L Alkaline Phosphatase (38-126) U/L Total Protein (6.3-8.2) g/dL Albumin (3.5-5.0) g/dL Urine Color Yellow Urine Appearance Cloudy H (Clear) Urine pH 5.5 (5.0-8.0) Ur Specific [place] 1.016 (1.001-1.035) Urine Protein Trace H (Negative) Urine Glucose (UA) Negative (Negative) Urine Ketones 1+ H (Negative) Urine Blood Negative (Negative) Urine Nitrite Negative (Negative) Urine Bilirubin Negative (Negative) Urine Urobilinogen <2.0 (<2.0) mg/dL Ur Leukocyte Esterase Negative (Negative) Urine WBC 9 H (0-5) /hpf Ur Squamous Epith Cells 18 H (0-4) /hpf Urine Bacteria Moderate H (None) /hpf Urine Mucus Occasional H (None) /hpf Urine HCG, Qual Not Detected (Not Detectd) 01/03/19 Range/Units 13:44 WBC (3.8-10.6) k/uL RBC (3.80-5.40) m/uL Hgb (11.4-16.0) gm/dL Hct (34.0-46.0) % MCV (80.0-100.0) fL MCH (25.0-35.0) pg MCHC (31.0-37.0) g/dL RDW (11.5-15.5) % Plt Count (150-450) k/uL Neutrophils % % Lymphocytes % % Monocytes % % Eosinophils % % Basophils % % Neutrophils # (1.3-7.7) k/uL Lymphocytes # (1.0-4.8) k/uL Monocytes # (0-1.0) k/uL Eosinophils # (0-0.7) k/uL Basophils # (0-0.2) k/uL Sodium 146 H (137-145) mmol/L Potassium 3.1 L (3.5-5.1) mmol/L Chloride 109 H (98-107) mmol/L Carbon Dioxide 20 L (22-30) mmol/L Anion Gap 17 mmol/L BUN 7 (7-17) mg/dL Creatinine 0.81 (0.52-1.04) mg/dL Est GFR (CKD-EPI)AfAm >90 (>60 ml/min/1.73 sqM) Est GFR (CKD-EPI)NonAf >90 (>60 ml/min/1.73 sqM) Glucose 117 H (74-99) mg/dL Calcium 10.4 H (8.4-10.2) mg/dL Total Bilirubin 1.0 (0.2-1.3) mg/dL AST 18 (14-36) U/L ALT 15 (9-52) U/L Alkaline Phosphatase 142 H (38-126) U/L Total Protein 7.9 (6.3-8.2) g/dL Albumin 4.7 (3.5-5.0) g/dL Urine Color Urine Appearance (Clear) Urine pH (5.0-8.0) Ur Specific [place] (1.001-1.035) Urine Protein (Negative) Urine Glucose (UA) (Negative) Urine Ketones (Negative) Urine Blood (Negative) Urine Nitrite (Negative) Urine Bilirubin (Negative) Urine Urobilinogen (<2.0) mg/dL Ur Leukocyte Esterase (Negative) Urine WBC (0-5) /hpf Ur Squamous Epith Cells (0-4) /hpf Urine Bacteria (None) /hpf Urine Mucus (None) /hpf Urine HCG, Qual (Not Detectd) Disposition Clinical Impression: Abdominal pain, UTI (urinary tract infection) Disposition: HOME SELF-CARE Condition: Stable Instructions (If sedation given, give patient instructions): Abdominal Pain (ED) Additional Instructions: Please return to the Emergency Department if symptoms worsen or any other concerns. Prescriptions: Cephalexin [Keflex] 500 mg PO Q8HR #15 cap Is patient prescribed a controlled substance at d/c from ED?: No Referrals: Lani Andrade MD [Primary Care Provider] - 1-2 days Time of Disposition: 15:19
--- NOTE | 2019-01-03 15:02 | US ---
EXAMINATION TYPE: US transvaginal plus Doppler DATE OF EXAM: 01/03/2019 COMPARISON: NONE CLINICAL HISTORY: 43-year-old female with LLQ pain, h/o ov cyst, BC in arm, TECHNIQUE: Multiple transvaginal sonographic images of the pelvis are obtained. Color Doppler and spe ctral waveform analysis of the ovarian arteries and veins. Date of LMP: 11/18/2018 FINDINGS: EXAM MEASUREMENTS: Uterus: 7.0 x 4.0 x 3.2 cm Endometrial Stripe: 0.6 cm Right Ovary: 2.9 x 2.2 x 1.7 cm Left Ovary: 3.0 x 2.2 x 2.1 cm 1. Uterus: Anteverted. A 5 mm cervical nabothian cyst is noted. Wnl 2. Endometrium: WNL 3. Right Ovary: follicles seen, largest = 1.0cm 4. Left Ovary: Follicular change is present. Spectral, color and waveform doppler imaging shows good arterial and venous flow within the ovaries ; there is no evidence for ovarian torsion. 5. Bilateral Adnexa: WNL 6. Posterior cul-de-sac: WNL IMPRESSION: 1. Normal follicular change in the ovaries. No sonographic evidence for ovarian torsion. 2. No pelvic free fluid.
[2019-01-03 15:46] VITALS: BP 121/76; PULSE 99; RESP 18; TEMP 98.2
== END 2019-01-03 15:48 | disposition home or self-care (01) ==
LOC: EC 13:04
DX: N39.0 Urinary tract infection, site not specified (principal); E87.6 Hypokalemia; F41.9 Anxiety disorder, unspecified; F32.9 Major depressive disorder, single episode, unspecified; K58.9 Irritable bowel syndrome, unspecified; Z79.899 Other long term (current) drug therapy; Z87.891 Personal history of nicotine dependence; Z87.42 Personal history of other diseases of the female genital tract
CPT/HCPCS: 36415; 80053; 85025; 81001; 81025; 93975; 76830; 99284; 96374; J1885

== ENCOUNTER 2019-01-19 16:56 | Emergency (ER) | payer OTHER ==
--- NOTE | 2019-01-19 17:59 | XR ---
EXAMINATION TYPE: XR ribs RT w pa chest xray DATE OF EXAM: 01/19/2019 COMPARISON: Chest x-ray 01/02/2019 HISTORY: Pain, cough TECHNIQUE: Chest is examined in the frontal projection. FINDINGS: No pneumothorax is evident. Heart and mediastinum are normal. Pulmonary vasculature is normal. The leelee ngs are clear. Right ribs are examined in 2 projections. No displaced rib fractures are evident. IMPRESSION: 1. No acute rib fractures
[2019-01-19] MEDS ORDERED: methylPREDNISolone SOD SUCCI 125 MG/2 ML VIAL IM ONE (18:28)
[2019-01-19] MEDS ORDERED: KETOROLAC 60 MG/2 ML VIAL IM STA (18:28)
--- NOTE | 2019-01-19 18:30 | ED ---
SOB HPI - General Chief Complaint: Shortness of Breath Stated Complaint: NILE Time Seen by Provider: 01/19/19 17:25 Source: patient, family Mode of arrival: ambulatory Limitations: no limitations - History of Present Illness Initial Comments: Patient is a 23-year-old female presenting to emergency Department with complaints of right-sided rib pain as well as shortness of breath that started today. Patient states she has had a cough for the last month or so and then today was reaching up on a cabinet when she felt a sharp pain in her right ribs and started having severe right-sided pain as well as shortness of breath. Patient admits to huffing out of duster's 2 weeks ago but states she has not done that since. Patient denies smoking, any other drug use. She has been on steroids approximately 2 weeks ago for same cough. Patient denies any fever, nausea, vomiting, diarrhea. Patient has no other complaints at this time. - Related Data Home Medications Medication Instructions Recorded Confirmed ALPRAZolam [Xanax] 1 - 2 mg PO DAILY PRN 01/03/19 01/03/19 Amoxicillin 500 mg PO Q8H 01/03/19 01/03/19 Fluticasone Nasal [place] [Flonase 1 spray EA NOSTRIL BID 01/03/19 01/03/19 Nasal [place]] HYDROcodone/APAP 5-325MG [[place] 0.5 - 1 tab PO DAILY PRN 01/03/19 01/03/19 5-325] Loratadine [Claritin] 10 mg PO DAILY 01/03/19 01/03/19 Methocarbamol [Robaxin] 500 mg PO BID PRN 01/03/19 01/03/19 Previous Rx's Medication Instructions Recorded Ibuprofen [Motrin] 600 mg PO Q8HR PRN #30 tab 01/02/19 Cephalexin [Keflex] 500 mg PO Q8HR #15 cap 01/03/19 methylPREDNISolone [Medrol Dose 4 mg PO DIRECTED #1 pack 01/19/19 Pack] Allergies Allergy/AdvReac Type Severity Reaction Status Date / Time ciprofloxacin [From Cipro] Allergy Nausea & Verified 01/19/19 17:01 Vomiting sulfamethoxazole Allergy Rash/Hives Verified 01/19/19 17:01 [From Bactrim] trimethoprim [From Bactrim] Allergy Rash/Hives Verified 01/19/19 17:01 Review of Systems ROS Statement: Those systems with pertinent positive or pertinent negative responses have been documented in the HPI. ROS Other: All systems not noted in ROS Statement are negative. Past Medical History Additional Past Medical History / Comment(s): IBS History of Any Multi-Drug Resistant Organisms: None Reported Past Surgical History: No Surgical Hx Reported Past Psychological History: Anxiety, Depression Smoking Status: Former smoker Past Alcohol Use History: Occasional Past Drug Use History: None Reported General Exam - General Exam Comments Initial Comments: GENERAL: Well-appearing, well-nourished and in no acute distress. HEAD: Atraumatic, normocephalic. EYES: Pupils equal round and reactive to light, extraocular movements intact, sclera anicteric, conjunctiva are normal. ENT: Moist mucous membranes. NECK: Normal range of motion, supple without lymphadenopathy or JVD. LUNGS: Breath sounds clear to auscultation bilaterally and equal. No wheezes rales or rhonchi. Pain with palpation of the right anterior and lateral middle ribs. There is no overlying bruising or deformity seen. HEART: Regular rate and rhythm without murmurs, rubs or gallops. ABDOMEN: Soft, nontender, normoactive bowel sounds. No guarding, no rebound. No masses appreciated. EXTREMITIES: Normal range of motion, no pitting or edema. No clubbing or cyanosis. NEUROLOGICAL: Normal speech, normal gait. PSYCH: Normal mood, normal affect. SKIN: Warm, Dry, normal turgor, no rashes or lesions noted. Limitations: no limitations Course Vital Signs 01/19/19 01/19/19 16:58 19:01 Temperature 98.1 F 97.8 F Pulse Rate 126 H 77 Respiratory 26 H 18 Rate Blood Pressure 115/71 107/64 O2 Sat by Pulse 98 99 Oximetry Medical Decision Making - Medical Decision Making Patient is a 23-year-old female presenting with right-sided rib pain as well as shortness of breath that started suddenly today. Patient has history of huffing out of duster cans. Patient's vital signs upon arrival showed a pulse of 126 and respiratory a 26 secondary to patient hyper ventilating. After exam, patient's vital signs are completely normal. Chest x-ray and right rib x-rays reveal no acute findings. It was discussed with patient that this is most likely secondary to muscle spasms of right-sided rib from her chronic cough. Patient will be given dose of Toradol and steroids in the ER and will be discharged on a Medrol Dosepak. Patient will follow-up with her primary care physician. Patient is agreement with this plan of care. Return parameters were discussed with the patient she verbalized understanding. Case discussed with Dr. Nelson. Disposition Clinical Impression: Cough, Costochondritis, Inhalant abuse Disposition: HOME SELF-CARE Condition: Stable Instructions (If sedation given, give patient instructions): Chronic Cough (ED) Additional Instructions: Please return to the Emergency Department if symptoms worsen or any other concerns. Take steroids as prescribed. Use Tylenol and/or Motrin for pain relief. Follow-up with PCP as discussed. Prescriptions: methylPREDNISolone [Medrol Dose Pack] 4 mg PO DIRECTED #1 pack Is patient prescribed a controlled substance at d/c from ED?: No Referrals: Lani Andrade MD [Primary Care Provider] - 1-2 days
[2019-01-19 19:02] VITALS: BP 107/64; PULSE 77; RESP 18; TEMP 97.8
== END 2019-01-19 19:01 | disposition home or self-care (01) ==
LOC: EC 16:56
DX: M94.0 Chondrocostal junction syndrome [Tietze] (principal); R05 Cough; F18.10 Inhalant abuse, uncomplicated; R06.02 Shortness of breath; Z87.891 Personal history of nicotine dependence; Z79.899 Other long term (current) drug therapy; Z88.1 Allergy status to other antibiotic agents; Z88.2 Allergy status to sulfonamides
CPT/HCPCS: 71101; 99284; 96372 ×2; J2930; J1885

== ENCOUNTER 2019-02-26 07:55 | Inpatient (IN) | payer OTHER ==
[2019-02-26] MEDS ORDERED: SODIUM CHLORIDE 0.9% 1,000 ML IV STA (08:03)
[2019-02-26 08:05] LABS: Glucose,Whole Blood 102 mg/dL (75-99)
[2019-02-26] MEDS ORDERED: NALOXONE 0.4 MG/ML 1 ML VIAL IV STA (08:05)
--- NOTE | 2019-02-26 08:12 | ED ---
General Adult HPI - General Chief complaint: Overdose Stated complaint: Overdose Time Seen by Provider: 02/26/19 08:03 Source: EMS Mode of arrival: EMS Limitations: altered mental status - History of Present Illness Initial comments: Dictation was produced using [employer] dictation software. please excuse any grammatical, word or spelling errors. Chief Complaint: 23-year-old female found with altered mental status. History of Present Illness: 23-year-old female she presents today with altered mental status. There was concern that patient attempted suicide. Patient has multiple medications. It is unclear what patient took an elbow time the ingestion was. She was found at home this morning by family members. She seemed obtunded. EMS was called. It was an allegedly suicidal bedside. EMS checked her sugar is found to be unremarkable. She was maintaining her airway. She is continues rebreather. Patient unable to provide patient at this time. No Narcan was given by EMS. Unable to obtain ROS secondary to mental status PHYSICAL EXAM: General Impression: Mild speech, eyes closed, responds to verbal and painful stimuli HEENT: Normocephalic atraumatic, extra-ocular movements intact, pupils equal and reactive to light bilaterally, pupils 2 mm reactive, mucous membranes, no hypersalivation Cardiovascular: Heart regular rate and rhythm, S1&S2 audible, no murmurs, rubs or gallops Chest: Lungs clear to auscultation bilaterally, no rhonchi, no wheeze, no rales Abdomen: Bowel sounds present, abdomen soft, non-tender, non-distended, no organomegaly Musculoskeletal: Pulses present and equal in all extremities, no peripheral edema Motor: no focal deficits noted Neurological: no focal motor or sensory deficits noted, no clonus, no rigidity Skin: Intact with no visualized rashes Psych: Normal affect and mood ED course: 23 y Old female presents with altered mental status after allegedly suicide via overdose. Vitals upon arrival shows heart rate 126, respiratory rate of 10. MS brought back multiple bottles of medications. To evaluation obtained. CBC unremarkable. Coag panel negative. PH is normal. Bicarb is 23. Metabolic panel is negative. No electric acidosis. No Acidosis. Serum osmolarity is 294. Osmole gap is negative for 0.0. No concern for toxic alcohol ingestion. Urinalysis negative. Tylenol, salicylates alcohol is negative. Poison control was contacted recommend admitting for observation and repeat EKG in 6-8 hours. Patient reevaluated at bedside patient taking her airway however still she is sleepy. Discussed patient case with sheet was went except patient's care. Patient will need medical clearance until she can be evaluated by psychiatry for suicidal attempt. Psychiatry consult. EKG interpretation: Ventricular rate 129, sinus tachycardia, MA interval 120, care is 84, QTC 480. No MA prolongation, no QTC prolongation, no ST. changes noted. T-wave inversion in lead 3 cm nonspecific. - Related Data Home Medications Medication Instructions Recorded Confirmed ALPRAZolam [Xanax] 1 - 2 mg PO DAILY PRN 01/03/19 01/03/19 Amoxicillin 500 mg PO Q8H 01/03/19 01/03/19 Fluticasone Nasal [place] [Flonase 1 spray EA NOSTRIL BID 01/03/19 01/03/19 Nasal [place]] HYDROcodone/APAP 5-325MG [[place] 0.5 - 1 tab PO DAILY PRN 01/03/19 01/03/19 5-325] Loratadine [Claritin] 10 mg PO DAILY 01/03/19 01/03/19 Methocarbamol [Robaxin] 500 mg PO BID PRN 01/03/19 01/03/19 Previous Rx's Medication Instructions Recorded Ibuprofen [Motrin] 600 mg PO Q8HR PRN #30 tab 01/02/19 Cephalexin [Keflex] 500 mg PO Q8HR #15 cap 01/03/19 methylPREDNISolone [Medrol Dose 4 mg PO DIRECTED #1 pack 01/19/19 Pack] Allergies Allergy/AdvReac Type Severity Reaction Status Date / Time ciprofloxacin [From Cipro] Allergy Nausea & Verified 01/19/19 17:01 Vomiting sulfamethoxazole Allergy Rash/Hives Verified 01/19/19 17:01 [From Bactrim] trimethoprim [From Bactrim] Allergy Rash/Hives Verified 01/19/19 17:01 Review of Systems ROS Statement: Those systems with pertinent positive or pertinent negative responses have been documented in the HPI. ROS Other: All systems not noted in ROS Statement are negative. Past Medical History Additional Past Medical History / Comment(s): IBS History of Any Multi-Drug Resistant Organisms: None Reported Past Surgical History: No Surgical Hx Reported Past Psychological History: Anxiety, Depression Smoking Status: Former smoker Past Alcohol Use History: Occasional Past Drug Use History: None Reported General Exam Limitations: altered mental status Course Vital Signs 02/26/19 02/26/19 02/26/19 07:57 08:03 08:08 Temperature 97.5 F L Pulse Rate 126 H Respiratory 10 L 10 L Rate Blood Pressure 122/57 O2 Sat by Pulse 100 100 Oximetry 02/26/19 02/26/19 08:40 09:19 Temperature 97.7 F Pulse Rate 104 H 76 Respiratory 18 14 Rate Blood Pressure 123/64 123/77 O2 Sat by Pulse 100 100 Oximetry Medical Decision Making - Lab Data Result diagrams: 02/26/19 08:03 02/26/19 08:03 Lab Results 02/26/19 02/26/19 02/26/19 Range/Units 07:58 08:03 08:03 WBC 6.1 (3.8-10.6) k/uL RBC 4.57 (3.80-5.40) m/uL Hgb 13.9 (11.4-16.0) gm/dL Hct 42.9 (34.0-46.0) % MCV 93.8 (80.0-100.0) fL MCH 30.3 (25.0-35.0) pg MCHC 32.3 (31.0-37.0) g/dL RDW 12.7 (11.5-15.5) % Plt Count 295 (150-450) k/uL Neutrophils % 32 % Lymphocytes % 51 % Monocytes % 8 % Eosinophils % 6 % Basophils % 1 % Neutrophils # 2.0 (1.3-7.7) k/uL Lymphocytes # 3.1 (1.0-4.8) k/uL Monocytes # 0.5 (0-1.0) k/uL Eosinophils # 0.4 (0-0.7) k/uL Basophils # 0.1 (0-0.2) k/uL PT (9.0-12.0) sec INR (<1.2) VBG pH (7.31-7.41) VBG pCO2 (37-51) mmHg VBG HCO3 (24-28) mmol/L Sodium 144 (137-145) mmol/L Potassium 4.1 (3.5-5.1) mmol/L Chloride 110 H (98-107) mmol/L Carbon Dioxide 24 (22-30) mmol/L Anion Gap 10 mmol/L BUN 10 (7-17) mg/dL Creatinine 0.97 (0.52-1.04) mg/dL Est GFR (CKD-EPI)AfAm >90 (>60 ml/min/1.73 sqM) Est GFR (CKD-EPI)NonAf 83 (>60 ml/min/1.73 sqM) Glucose 113 H (74-99) mg/dL POC Glucose (mg/dL) 102 H (75-99) mg/dL POC Glu Trekking Guide ID Meghna Lucero Osmolality (280-301) mosm/kg Plasma Lactic Acid Yobani (0.7-2.0) mmol/L Calcium 10.3 H (8.4-10.2) mg/dL Total Bilirubin 1.8 H (0.2-1.3) mg/dL AST 26 (14-36) U/L ALT 18 (4-34) U/L Alkaline Phosphatase 70 (38-126) U/L Creatine Kinase 335 H (30-135) U/L Troponin I (0.000-0.034) ng/mL Total Protein 7.2 (6.3-8.2) g/dL Albumin 4.3 (3.5-5.0) g/dL Lipase 73 (23-300) U/L Urine Color Urine Appearance (Clear) Urine pH (5.0-8.0) Ur Specific [place] (1.001-1.035) Urine Protein (Negative) Urine Glucose (UA) (Negative) Urine Ketones (Negative) Urine Blood (Negative) Urine Nitrite (Negative) Urine Bilirubin (Negative) Urine Urobilinogen (<2.0) mg/dL Ur Leukocyte Esterase (Negative) Urine RBC (0-5) /hpf Urine WBC (0-5) /hpf Ur Squamous Epith Cells (0-4) /hpf Urine Mucus (None) /hpf Urine HCG, Qual (Not Detectd) Salicylates <1.0 mg/dL Urine Opiates Screen (NotDetected) Ur Oxycodone Screen (NotDetected) Urine Methadone Screen (NotDetected) Ur Propoxyphene Screen (NotDetected) Acetaminophen <10.0 ug/mL Ur Barbiturates Screen (NotDetected) U Tricyclic Antidepress (NotDetected) Ur Phencyclidine Scrn (NotDetected) Ur Amphetamines Screen (NotDetected) U Methamphetamines Scrn (NotDetected) U Benzodiazepines Scrn (NotDetected) Urine Cocaine Screen (NotDetected) U Marijuana (THC) Screen (NotDetected) Serum Alcohol <10 mg/dL 02/26/19 02/26/19 02/26/19 Range/Units 08:03 08:03 08:03 WBC (3.8-10.6) k/uL RBC (3.80-5.40) m/uL Hgb (11.4-16.0) gm/dL Hct (34.0-46.0) % MCV (80.0-100.0) fL MCH (25.0-35.0) pg MCHC (31.0-37.0) g/dL RDW (11.5-15.5) % Plt Count (150-450) k/uL Neutrophils % % Lymphocytes % % Monocytes % % Eosinophils % % Basophils % % Neutrophils # (1.3-7.7) k/uL Lymphocytes # (1.0-4.8) k/uL Monocytes # (0-1.0) k/uL Eosinophils # (0-0.7) k/uL Basophils # (0-0.2) k/uL PT (9.0-12.0) sec INR (<1.2) VBG pH (7.31-7.41) VBG pCO2 (37-51) mmHg VBG HCO3 (24-28) mmol/L Sodium (137-145) mmol/L Potassium (3.5-5.1) mmol/L Chloride (98-107) mmol/L Carbon Dioxide (22-30) mmol/L Anion Gap mmol/L BUN (7-17) mg/dL Creatinine (0.52-1.04) mg/dL Est GFR (CKD-EPI)AfAm (>60 ml/min/1.73 sqM) Est GFR (CKD-EPI)NonAf (>60 ml/min/1.73 sqM) Glucose (74-99) mg/dL POC Glucose (mg/dL) (75-99) mg/dL POC Glu Trekking Guide ID Osmolality (280-301) mosm/kg Plasma Lactic Acid Yobani 1.4 (0.7-2.0) mmol/L Calcium (8.4-10.2) mg/dL Total Bilirubin (0.2-1.3) mg/dL AST (14-36) U/L ALT (4-34) U/L Alkaline Phosphatase (38-126) U/L Creatine Kinase (30-135) U/L Troponin I (0.000-0.034) ng/mL Total Protein (6.3-8.2) g/dL Albumin (3.5-5.0) g/dL Lipase (23-300) U/L Urine Color Urine Appearance (Clear) Urine pH (5.0-8.0) Ur Specific [place] (1.001-1.035) Urine Protein (Negative) Urine Glucose (UA) (Negative) Urine Ketones (Negative) Urine Blood (Negative) Urine Nitrite (Negative) Urine Bilirubin (Negative) Urine Urobilinogen (<2.0) mg/dL Ur Leukocyte Esterase (Negative) Urine RBC (0-5) /hpf Urine WBC (0-5) /hpf Ur Squamous Epith Cells (0-4) /hpf Urine Mucus (None) /hpf Urine HCG, Qual Not Detected (Not Detectd) Salicylates mg/dL Urine Opiates Screen Detected H (NotDetected) Ur Oxycodone Screen Not Detected (NotDetected) Urine Methadone Screen Not Detected (NotDetected) Ur Propoxyphene Screen Not Detected (NotDetected) Acetaminophen ug/mL Ur Barbiturates Screen Not Detected (NotDetected) U Tricyclic Antidepress Detected H (NotDetected) Ur Phencyclidine Scrn Not Detected (NotDetected) Ur Amphetamines Screen Not Detected (NotDetected) U Methamphetamines Scrn Not Detected (NotDetected) U Benzodiazepines Scrn Detected H (NotDetected) Urine Cocaine Screen Detected H (NotDetected) U Marijuana (THC) Screen Not Detected (NotDetected) Serum Alcohol mg/dL 02/26/19 02/26/19 02/26/19 Range/Units 08:03 08:03 08:03 WBC (3.8-10.6) k/uL RBC (3.80-5.40) m/uL Hgb (11.4-16.0) gm/dL Hct (34.0-46.0) % MCV (80.0-100.0) fL MCH (25.0-35.0) pg MCHC (31.0-37.0) g/dL RDW (11.5-15.5) % Plt Count (150-450) k/uL Neutrophils % % Lymphocytes % % Monocytes % % Eosinophils % % Basophils % % Neutrophils # (1.3-7.7) k/uL Lymphocytes # (1.0-4.8) k/uL Monocytes # (0-1.0) k/uL Eosinophils # (0-0.7) k/uL Basophils # (0-0.2) k/uL PT 10.7 (9.0-12.0) sec INR 1.0 (<1.2) VBG pH (7.31-7.41) VBG pCO2 (37-51) mmHg VBG HCO3 (24-28) mmol/L Sodium (137-145) mmol/L Potassium (3.5-5.1) mmol/L Chloride (98-107) mmol/L Carbon Dioxide (22-30) mmol/L Anion Gap mmol/L BUN (7-17) mg/dL Creatinine (0.52-1.04) mg/dL Est GFR (CKD-EPI)AfAm (>60 ml/min/1.73 sqM) Est GFR (CKD-EPI)NonAf (>60 ml/min/1.73 sqM) Glucose (74-99) mg/dL POC Glucose (mg/dL) (75-99) mg/dL POC Glu Trekking Guide ID Osmolality (280-301) mosm/kg Plasma Lactic Acid Yobani (0.7-2.0) mmol/L Calcium (8.4-10.2) mg/dL Total Bilirubin (0.2-1.3) mg/dL AST (14-36) U/L ALT (4-34) U/L Alkaline Phosphatase (38-126) U/L Creatine Kinase (30-135) U/L Troponin I <0.012 (0.000-0.034) ng/mL Total Protein (6.3-8.2) g/dL Albumin (3.5-5.0) g/dL Lipase (23-300) U/L Urine Color Yellow Urine Appearance Cloudy H (Clear) Urine pH 7.0 (5.0-8.0) Ur Specific [place] 1.011 (1.001-1.035) Urine Protein Trace H (Negative) Urine Glucose (UA) Negative (Negative) Urine Ketones Negative (Negative) Urine Blood Negative (Negative) Urine Nitrite Negative (Negative) Urine Bilirubin Negative (Negative) Urine Urobilinogen <2.0 (<2.0) mg/dL Ur Leukocyte Esterase Negative (Negative) Urine RBC <1 (0-5) /hpf Urine WBC <1 (0-5) /hpf Ur Squamous Epith Cells 3 (0-4) /hpf Urine Mucus Rare H (None) /hpf Urine HCG, Qual (Not Detectd) Salicylates mg/dL Urine Opiates Screen (NotDetected) Ur Oxycodone Screen (NotDetected) Urine Methadone Screen (NotDetected) Ur Propoxyphene Screen (NotDetected) Acetaminophen ug/mL Ur Barbiturates Screen (NotDetected) U Tricyclic Antidepress (NotDetected) Ur Phencyclidine Scrn (NotDetected) Ur Amphetamines Screen (NotDetected) U Methamphetamines Scrn (NotDetected) U Benzodiazepines Scrn (NotDetected) Urine Cocaine Screen (NotDetected) U Marijuana (THC) Screen (NotDetected) Serum Alcohol mg/dL 02/26/19 02/26/19 Range/Units 08:03 08:03 WBC (3.8-10.6) k/uL RBC (3.80-5.40) m/uL Hgb (11.4-16.0) gm/dL Hct (34.0-46.0) % MCV (80.0-100.0) fL MCH (25.0-35.0) pg MCHC (31.0-37.0) g/dL RDW (11.5-15.5) % Plt Count (150-450) k/uL Neutrophils % % Lymphocytes % % Monocytes % % Eosinophils % % Basophils % % Neutrophils # (1.3-7.7) k/uL Lymphocytes # (1.0-4.8) k/uL Monocytes # (0-1.0) k/uL Eosinophils # (0-0.7) k/uL Basophils # (0-0.2) k/uL PT (9.0-12.0) sec INR (<1.2) VBG pH 7.40 (7.31-7.41) VBG pCO2 38 (37-51) mmHg VBG HCO3 23 L (24-28) mmol/L Sodium (137-145) mmol/L Potassium (3.5-5.1) mmol/L Chloride (98-107) mmol/L Carbon Dioxide (22-30) mmol/L Anion Gap mmol/L BUN (7-17) mg/dL Creatinine (0.52-1.04) mg/dL Est GFR (CKD-EPI)AfAm (>60 ml/min/1.73 sqM) Est GFR (CKD-EPI)NonAf (>60 ml/min/1.73 sqM) Glucose (74-99) mg/dL POC Glucose (mg/dL) (75-99) mg/dL POC Glu Trekking Guide ID Osmolality 294 (280-301) mosm/kg Plasma Lactic Acid Yobani (0.7-2.0) mmol/L Calcium (8.4-10.2) mg/dL Total Bilirubin (0.2-1.3) mg/dL AST (14-36) U/L ALT (4-34) U/L Alkaline Phosphatase (38-126) U/L Creatine Kinase (30-135) U/L Troponin I (0.000-0.034) ng/mL Total Protein (6.3-8.2) g/dL Albumin (3.5-5.0) g/dL Lipase (23-300) U/L Urine Color Urine Appearance (Clear) Urine pH (5.0-8.0) Ur Specific [place] (1.001-1.035) Urine Protein (Negative) Urine Glucose (UA) (Negative) Urine Ketones (Negative) Urine Blood (Negative) Urine Nitrite (Negative) Urine Bilirubin (Negative) Urine Urobilinogen (<2.0) mg/dL Ur Leukocyte Esterase (Negative) Urine RBC (0-5) /hpf Urine WBC (0-5) /hpf Ur Squamous Epith Cells (0-4) /hpf Urine Mucus (None) /hpf Urine HCG, Qual (Not Detectd) Salicylates mg/dL Urine Opiates Screen (NotDetected) Ur Oxycodone Screen (NotDetected) Urine Methadone Screen (NotDetected) Ur Propoxyphene Screen (NotDetected) Acetaminophen ug/mL Ur Barbiturates Screen (NotDetected) U Tricyclic Antidepress (NotDetected) Ur Phencyclidine Scrn (NotDetected) Ur Amphetamines Screen (NotDetected) U Methamphetamines Scrn (NotDetected) U Benzodiazepines Scrn (NotDetected) Urine Cocaine Screen (NotDetected) U Marijuana (THC) Screen (NotDetected) Serum Alcohol mg/dL Critical Care Time Critical Care Time: Yes (31) Disposition Clinical Impression: Altered mental status, Drug overdose, Suicide attempt Disposition: ADMITTED IP TO THIS [facility] Condition: Fair Referrals: None,Stated [REFERRING] - 1-2 days Decision Time: 09:54
[2019-02-26 08:22] LABS: Basophils # (A) 0.1 k/uL (0-0.2); Basophils % (A) 1 %; Eosinophils # (A) 0.4 k/uL (0-0.7); Eosinophils % (A) 6 %; HCT 42.9 % (34.0-46.0); HGB 13.9 gm/dL (11.4-16.0); Lymphocytes # (A) 3.1 k/uL (1.0-4.8); Lymphocytes % (A) 51 %; MCH 30.3 pg (25.0-35.0); MCHC 32.3 g/dL (31.0-37.0); MCV 93.8 fL (80.0-100.0); Mean Platelet Volume 7.1; Monocytes # (A) 0.5 k/uL (0-1.0); Monocytes % (A) 8 %; Neutrophils % (A) 32 %; Platelet Count 295 k/uL (150-450); RBC 4.57 m/uL (3.80-5.40); RDW 12.7 % (11.5-15.5); WBC 6.1 k/uL (3.8-10.6)
[2019-02-26 08:24] LABS: Appearance,Urine Cloudy (Clear); Bilirubin,Urine Negative (Negative); Blood,Urine Negative (Negative); Color,Urine Yellow; Glucose,Urine (UA) Negative (Negative); Ketones,Urine Negative (Negative); Leukocyte Esterase,Urine Negative (Negative); Mucus,Urine Rare /hpf; Nitrite,Urine Negative (Negative); Protein,Urine Trace (Negative); RBC,Urine <1 /hpf (0-5); Specific Gravity,Urine 1.011 (1.001-1.035); Squamous Epithelial Cell,Urine 3 /hpf (0-4); Urobilinogen,Urine <2.0 mg/dL (<2.0); WBC,Urine <1 /hpf (0-5)
[2019-02-26 08:27] LABS: Prothrombin Time 10.7 sec (9.0-12.0)
[2019-02-26 08:31] LABS: VBG PH 7.4 (7.31-7.41)
[2019-02-26 08:34] LABS: Amphetamine Screen,Urine Not Detected (NotDetected); Barbiturate Screen,Urine Not Detected (NotDetected); Benzodiazepines Screen,Urine Detected (NotDetected); Cocaine Screen,Urine Detected (NotDetected); Methadone Screen, Urine Not Detected (NotDetected); Opiate Screen,Urine Detected (NotDetected); Oxycodone Screen, Urine Not Detected (NotDetected); Phencyclidine Screen,Urine Not Detected (NotDetected); Tricyclic Antidepressant,Urine Detected (NotDetected); Urn Cannabinoid Scrn Not Detected (NotDetected)
[2019-02-26 08:41] LABS: ALT 18 U/L (4-34); AST 26 U/L (14-36); Acetaminophen <10.0 ug/mL; African American GFR (CKD) >90 (>60 ml/min/1.73 sqM); Albumin 4.3 g/dL (3.5-5.0); Alcohol <10 mg/dL; Alkaline Phosphatase 70 U/L (38-126); Anion Gap 10 mmol/L; Blood Urea Nitrogen 10 mg/dL (7-17); Calcium 10.3 mg/dL (8.4-10.2); Carbon Dioxide 24 mmol/L (22-30); Chloride 110 mmol/L (98-107); Creatine Kinase 335 U/L (30-135); Glucose 113 mg/dL (74-99); Non-African American GFR(CKD) 83 (>60 ml/min/1.73 sqM); Potassium 4.1 mmol/L (3.5-5.1); Salicylate <1.0 mg/dL; Sodium 144 mmol/L (137-145); Total Bilirubin 1.8 mg/dL (0.2-1.3); Total Protein 7.2 g/dL (6.3-8.2)
--- NOTE | 2019-02-26 08:45 | CT ---
EXAMINATION TYPE: CT brain [facility]son degroot con DATE OF EXAM: 02/26/2019 COMPARISON: Previous CT scan of the brain dated 03/21/2018. HISTORY: Altered mental status CT DLP: 1301.20 mGycm Automated exposure control for dose reduction was used. TECHNIQUE: CT scan of the head and cervical spine are performed without contrast. FINDINGS: BRAIN: Central structures are midline. There is no evidence of hydrocephalus. No acute focal lesion, mass effect or midline shift is seen. I do not see evidence of intracranial blood. Visualized portions of the paranasal sinuses and mastoids are clear. The bony calvarium is intact. IMPRESSION: NORMAL CT SCAN OF THE BRAIN. CERVICAL SPINE: Visualized portions of the lungs are clear. Prevertebral soft tissues are normal. There is a mild reversal of the normal cervical lordosis which is replaced by mild kyphosis. Alignmen t is normal. Atlantoaxial relationships are normal. There is degenerative disc disease and mild hyper trophic spondylosis at C7-T1. The uncovertebral joints and facets are unremarkable. No definite protr usion is seen. No fracture is identified. IMPRESSION: 1. NO ACUTE OSSEOUS LESION. 2. MILD DEGENERATIVE CHANGE.
--- NOTE | 2019-02-26 08:46 | XR ---
EXAMINATION TYPE: XR chest 1V portable DATE OF EXAM: 02/26/2019 HISTORY: overdose. REFERENCE: Previous study dated 01/19/2019. FINDINGS: The lungs remain clear. Pleural spaces are clear. The heart is not enlarged. IMPRESSION: NORMAL CHEST
[2019-02-26] MEDS ORDERED: NALOXONE 0.4 MG/ML 1 ML VIAL IV PRN (09:54)
[2019-02-26] MEDS: SODIUM CHLORIDE 0.9% 1,000 ML IV SCH ×2 (10:36→22:58)
--- NOTE | 2019-02-26 15:23 | P.CN ---
Psychiatric Consult - . 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 HISTORY OF PRESENT ILLNESS: The patient was brought in yesterday for altered mental status after concerns of overdose in a suicide attempt. At the time patient's arrival he was unclear of what the patient ingested prior to coming to the ER. Patient was allegedly found at home by her family members and brought into the hospital. Computed tomography scan of patient's had was negative. Patient was also given Narcan however did not help her become more alert. Patient was seen at the bedside and appeared to be sedated and minimally responsive to commands. Patient was not able to participate in interview however family members were at the bedside and agreeable to give most of the history. Patient's grandmother states that patient was last seen well last night and went out with a male friend that she was romantically involved with and claims that early this morning she was found with a note by her side and empty pill bottle in the house and was unresponsive. Grandmother states that patient has been dealing with 2 DUIs and is currently on probation from them and was meant to go to community service today however did not report to it. Grandmother states that patient was also recently fired from her job at [employer] due to her boyfriend coming in and causing a ruckus and acting out. Family claims that patient has been dealing with substance abuse issues and is currently abusing Xanax. Family also states that patient has been feeling depressed and has a history of bipolar disorder. grandmother showed telegraphic typewriter operator chief patient's suicide note which stated that patient is sorry for what she is doing and loves all her family members and also to not try and resuscitate her.patient's UDS was positive for cocaine, benzodiazepines, TCAs, opiates. Family members claimed that prior to this past summer patient abused alcohol regularly and had 2 DUIs however has not been drinking since. PAST PSYCHIATRIC HISTORY: patient was previously admitted to [facility] in April of this year for cutting her wrist and has had 1 previous suicide attempt. Patient was supposed to be following up with [facility] however did not show for her psychiatric appointment. Patient has been dealing with anxiety and depression along with bipolar disorder. Family claims that patient was on Xanax. PAST MEDICAL HISTORY: IBS ALLERGIES: [as per EMR]. CHEMICAL DEPENDENCY HISTORY: as per HPI. FAMILY PSYCHIATRIC/SUBSTANCE USE HISTORY: mother has bipolar disorder SOCIAL HISTORY: patient was born and raised in [place] [facility] and completed high school. Patient has no kids is currently single and is unemployed and was recently fired from [employer], lives with her grandparents at home. MENTAL STATUS EXAM: General Appearance: [Patient appears to be stated age is sedated and minimally responsive to commands. Poor hygiene and grooming Behavior: Patient is calmly lying in bed without any agitated behavior. Speech: unable to speak. Mood/Affect:unable to assess Suicidality/Homicidality: unable to assess Perceptions: unable to assess Though content/process:unable to assess Memory and concentration: patient is currently obtunded and minimally responsive to commands by telegraphic typewriter operator chief. Unable to take part in cognitive exam. Judgment and insight: unable to assess IMPRESSIONS: bipolar disorder, depressed Polysubstance abuse including cocaine, benzodiazepines, opioids. PLAN: -at this time patient requires further medical evaluation and treatment. -Would recommend the following medication changes/additions: would continue holding off on psychiatric medications at this time until patient regains consciousness. -Continue 1:1 sitter for safety -Cannot leave AMA at this time. Patient will need a petition and certification if attempting to leave AMA. -Will continue to follow along\ -When medically stable psychiatry will continue to evaluate need for transfer to the mental health unit for further treatment.
[2019-02-26] MEDS: FAMOTIDINE 20 MG/2 ML VIAL IV SCH (22:49)
[2019-02-26] MEDS: HEPARIN SODIUM,PORCINE 5,000 UNIT/ML 1 ML VIAL SQ SCH (22:49)
[2019-02-27 06:58] LABS: Basophils % (A) 0 %; Eosinophils # (A) 0.3 k/uL (0-0.7); Eosinophils % (A) 3 %; HCT 36.3 % (34.0-46.0); HGB 11.9 gm/dL (11.4-16.0); Lymphocytes # (A) 2.1 k/uL (1.0-4.8); Lymphocytes % (A) 22 %; MCH 31.3 pg (25.0-35.0); MCHC 32.6 g/dL (31.0-37.0); MCV 95.9 fL (80.0-100.0); Mean Platelet Volume 7.3; Monocytes # (A) 0.6 k/uL (0-1.0); Monocytes % (A) 6 %; Neutrophils # (A) 6.2 k/uL (1.3-7.7); Neutrophils % (A) 67 %; Platelet Count 262 k/uL (150-450); RBC 3.79 m/uL (3.80-5.40); RDW 12.7 % (11.5-15.5); WBC 9.3 k/uL (3.8-10.6)
[2019-02-27 07:19] LABS: ALT 18 U/L (4-34); AST 35 U/L (14-36); African American GFR (CKD) >90 (>60 ml/min/1.73 sqM); Albumin 3.5 g/dL (3.5-5.0); Alkaline Phosphatase 61 U/L (38-126); Anion Gap 8 mmol/L; Blood Urea Nitrogen 10 mg/dL (7-17); Calcium 9.3 mg/dL (8.4-10.2); Carbon Dioxide 23 mmol/L (22-30); Chloride 112 mmol/L (98-107); Glucose 73 mg/dL (74-99); Magnesium 1.9 mg/dL (1.6-2.3); Non-African American GFR(CKD) 82 (>60 ml/min/1.73 sqM); Potassium 4.3 mmol/L (3.5-5.1); Sodium 143 mmol/L (137-145); Total Bilirubin 1.7 mg/dL (0.2-1.3)
[2019-02-27 07:39] LABS: Creatine Kinase 1045 U/L (30-135)
[2019-02-27] MEDS: HEPARIN SODIUM,PORCINE 5,000 UNIT/ML 1 ML VIAL SQ SCH ×2 (09:39→20:25)
[2019-02-27] MEDS: FAMOTIDINE 20 MG/2 ML VIAL IV SCH (09:39)
--- NOTE | 2019-02-27 11:14 | P.PN ---
Subjective this is a pleasant 23 years old female with past medical history of depression, previous suicidal attempt, anxiety, irritable bowel syndrome, ex-smoker.presents because of drug overdose and altered mental status.she's follow with Dr. Scott in the outpatient setting.the patient was found in her home by her grandfather this morning at 7:20 AM unresponsive medical embolus for her, she has few tablets of all her medicines with bottles on the floor, her medications include tizanidine, Zofran, naproxen, Narco 5-325 mg and Xanax 1 mg. When she was found on the floor she was unresponsive so EMS came and brought her to the emergency room. There was a so psych bladder at bedside stated into the family that she is serial and she wanted them to forgive her. However patient cannot provide information so information was taken from the records and family at bedside including the father and grandparents. As per family patient has history of depression and she follows with mental health community, last time it was about 2 months ago, she has history of depression and suicidal ideation by cutting her wrist about one year ago. She has history of 2 DUIs and she cannot drive so her grandfather drives her back and forth. She smokes about half pack per day, she cannot drink alcohol because she is on probation but she uses cocaine with no history of IV drug abuse. vitals are stable, her rhythm rate was 10-11, currently 18. Labs reviewed show ing unremarkable CBC, INR, BMPher liver enzymes. Bilirubin slightly elevated at 1.8, lactic acid is normal at 1.4. Creatinine kinase is 335, troponin is negative. EKG showing sinus tachycardia at 129. With no significant ST T changes, QTC is 480. Chest x-ray: No acute process.CT of the head and neck:normal CT of the brain and no acute osseous lesions as per radiologist.in the emergency room she received naloxone 0.4 mg once and 1 L of normal saline and placed on normal saline at 100 mL per hour 02/27/2019 Patient is fully awake and oriented. She gained her consciousness and she is back to her baseline. Patient is calm. She is telling me she took Zanaflex, Wellbutrin and Keflex antibiotics, she does not know how many pills. However patient was complaining of from muscle pain including the chest and abdominal wall and to lesser extent in her extremities. She is hemodynamically stable and afebrile, she is mildly tachycardic. CBC and BMP and liver enzymes were unremarkable. Creatinine kinase went up from 335 up to 1045she is on normal saline IV infusion continue that. And will order Tylenol for pain management. Psychiatrist evaluated the patient and recommended once medically stable she needs to be transferred to mental health unit Review of systems CONSTITUTIONAL: No fever, no malaise, no fatigue. HEENT: No recent visual problems or hearing problems. Denied any sore throat. CARDIOVASCULAR: No orthopnea, PND, no palpitations, no syncope. PULMONARY: No shortness of breath, no cough, no hemoptysis. GASTROINTESTINAL: No diarrhea, no nausea, no vomiting, no abdominal pain. Normoactive bowel sounds. NEUROLOGICAL: No headaches, no weakness, no numbness. HEMATOLOGICAL: Denies any bleeding or petechiae. GENITOURINARY: Denies any burning micturition, frequency, or urgency. MUSCULOSKELETAL/RHEUMATOLOGICAL: Denies any joint pain, swelling, or any muscle pain. ENDOCRINE: Denies any polyuria or polydipsia.ms Active Medications Generic Name Dose Route Start Last Admin Trade Name Freq PRN Reason Stop Dose Admin Acetaminophen 650 mg 02/27/19 11:12 Tylenol Tab PO Q6HR PRN Fever and/ or Pain Famotidine 20 mg 02/26/19 21:30 02/27/19 09:39 Pepcid IV 20 mg Q12HR DENY Administration Heparin Sodium (Porcine) 5,000 unit 02/26/19 21:30 02/27/19 09:39 Heparin SQ 5,000 unit Q12HR DENY Administration Sodium Chloride 1,000 mls @ 200 mls/hr 02/26/19 10:00 02/26/19 22:58 Saline 0.9% IV Not Given .Q5H DENY Naloxone HCl 0.2 mg 02/26/19 09:54 Narcan IV Q2M PRN Opioid Reversal Objective - Vital Signs Vital signs: Vital Signs Temp 98.3 F 02/27/19 08:00 Pulse 100 02/27/19 08:00 Resp 14 02/27/19 08:00 BP 119/70 02/27/19 08:00 Pulse Ox 98 02/27/19 08:00 Intake & Output 02/26/19 02/27/19 02/27/19 18:59 06:59 18:59 Intake Total 0 800 Output Total 1200 Balance 0 -400 Weight 61.235 kg 58 kg Intake: Intake, IV Titration 800 Amount Sodium Chloride 0.9% 1, 800 000 ml @ 100 mls/hr IV . Q10H [facility] Rx#:[id number] Oral 0 Output: Urine 1200 Other: Voiding Method Indwelling Catheter Indwelling Catheter Toilet - Exam GENERAL: Patient is fully awake and oriented 3. She is back to her basic mental status HEENT: Pupils are round and equally reacting to light. EOMI. No scleral icterus. No conjunctival pallor. Normocephalic, atraumatic. No pharyngeal erythema. No thyromegaly. CARDIOVASCULAR: S1 and S2 present. No murmurs, rubs, or gallops. PULMONARY: Chest is clear to auscultation, no wheezing or crackles. ABDOMEN: Soft, nontender, nondistended, normoactive bowel sounds. No palpable organomegaly. MUSCULOSKELETAL: No joint swelling or deformity. EXTREMITIES: No cyanosis, clubbing, or pedal edema. -NEUROLOGICAL: Gross neurological examination did not reveal any focal deficits. Cranial nerves are grossly intact, strength and motor is 5/5 in all extremities. Sensation is intact SKIN: No rashes. No petechiae - Labs CBC & Chem 7: 02/27/19 06:12 02/27/19 06:12 Labs: Abnormal Lab Results - Last 24 Hours (Table) 02/27/19 02/27/19 Range/Units 06:12 06:12 RBC 3.79 L (3.80-5.40) m/uL Chloride 112 H (98-107) mmol/L Glucose 73 L (74-99) mg/dL Total Bilirubin 1.7 H (0.2-1.3) mg/dL Creatine Kinase 1045 H* (30-135) U/L Total Protein 6.0 L (6.3-8.2) g/dL Assessment and Plan Assessment: metabolic encephalopathy secondary to drug overdose. Improved Rhabdomyolysis Suicidal ideation and attempt by drug overdose Depression and anxiety, with previous history of suicidal attempt Irritable bowel syndrome cigarette smoker Substance abuse including cocaine Plan: this is a pleasant 23 years old female who presents with metallic encephalopathy and took overdose related to her suicidal dilatation. Patient today is fully awake and oriented . Continue with sitter at bedside and transferred to mental health unit when patient is medically cleared. However patient still needs IV fluids and decrease her normal saline from 100 to 200 mL per hour. Follow-up creatine kinase. Follow-up renal function and electrolytes Labs and medication were reviewed.. Continue same treatment. Continue with symptomatic treatment. Resume home medication. Monitor lytes and vitals. DVT and GI prophylaxis. Further recommendations of the clinical course of the patient DVT prophylaxis: Subcutaneous heparin GI Prophylaxis: Pepcid Prognosis is guarded
[2019-02-27] MEDS: SODIUM CHLORIDE 0.9% 1,000 ML IV SCH ×2 (12:53→17:26)
[2019-02-27] MEDS: ACETAMINOPHEN TAB 325 MG TAB PO PRN (17:26)
[2019-02-27] MEDS: FAMOTIDINE 20 MG TAB PO SCH (20:25)
[2019-02-28] MEDS: SODIUM CHLORIDE 0.9% 1,000 ML IV SCH ×7 (05:04→22:54)
[2019-02-28 05:49] LABS: Basophils % (A) 1 %; Eosinophils # (A) 0.3 k/uL (0-0.7); Eosinophils % (A) 6 %; HCT 35.8 % (34.0-46.0); HGB 11.8 gm/dL (11.4-16.0); Lymphocytes # (A) 2.2 k/uL (1.0-4.8); Lymphocytes % (A) 38 %; MCH 31.3 pg (25.0-35.0); Mean Platelet Volume 7.5; Monocytes # (A) 0.5 k/uL (0-1.0); Monocytes % (A) 8 %; Neutrophils # (A) 2.6 k/uL (1.3-7.7); Neutrophils % (A) 45 %; Platelet Count 258 k/uL (150-450); RBC 3.76 m/uL (3.80-5.40); RDW 12.5 % (11.5-15.5); WBC 5.8 k/uL (3.8-10.6)
[2019-02-28 06:03] LABS: African American GFR (CKD) >90 (>60 ml/min/1.73 sqM); Anion Gap 6 mmol/L; Blood Urea Nitrogen 8 mg/dL (7-17); Carbon Dioxide 21 mmol/L (22-30); Chloride 112 mmol/L (98-107); Creatine Kinase 791 U/L (30-135); Glucose 88 mg/dL (74-99); Magnesium 1.8 mg/dL (1.6-2.3); Non-African American GFR(CKD) >90 (>60 ml/min/1.73 sqM); Sodium 139 mmol/L (137-145)
[2019-02-28] MEDS: ACETAMINOPHEN TAB 325 MG TAB PO PRN (09:00)
[2019-02-28] MEDS: FAMOTIDINE 20 MG TAB PO SCH ×2 (09:00→20:59)
[2019-02-28] MEDS: HEPARIN SODIUM,PORCINE 5,000 UNIT/ML 1 ML VIAL SQ SCH ×2 (09:00→20:59)
[2019-02-28] MEDS: Acetaminophen-Codeine 300-30mg TAB PO PRN ×2 (12:50→20:59)
[2019-02-28] MEDS: ALPRAZolam 1 MG TAB PO SCH (17:18)
[2019-02-28] MEDS ORDERED: SENNOSIDES 8.6 MG TAB PO PRN (22:28)
[2019-03-01] MEDS: HEPARIN SODIUM,PORCINE 5,000 UNIT/ML 1 ML VIAL SQ SCH ×2 (07:07→20:01)
[2019-03-01] MEDS: FAMOTIDINE 20 MG TAB PO SCH ×2 (07:07→20:01)
[2019-03-01] MEDS: SODIUM CHLORIDE 0.9% 1,000 ML IV SCH ×3 (07:07→19:08)
[2019-03-01] MEDS: ALPRAZolam 1 MG TAB PO SCH ×2 (07:07→20:01)
[2019-03-01 07:36] LABS: Basophils % (A) 1 %; Eosinophils # (A) 0.4 k/uL (0-0.7); Eosinophils % (A) 6 %; HCT 35.9 % (34.0-46.0); HGB 12.2 gm/dL (11.4-16.0); Lymphocytes # (A) 2.5 k/uL (1.0-4.8); Lymphocytes % (A) 42 %; MCH 32.2 pg (25.0-35.0); MCHC 34.1 g/dL (31.0-37.0); MCV 94.6 fL (80.0-100.0); Mean Platelet Volume 7.6; Monocytes # (A) 0.5 k/uL (0-1.0); Monocytes % (A) 8 %; Neutrophils # (A) 2.3 k/uL (1.3-7.7); Neutrophils % (A) 40 %; Platelet Count 281 k/uL (150-450); RDW 12.5 % (11.5-15.5); WBC 5.8 k/uL (3.8-10.6)
[2019-03-01 07:54] LABS: African American GFR (CKD) >90 (>60 ml/min/1.73 sqM); Anion Gap 9 mmol/L; Blood Urea Nitrogen 4 mg/dL (7-17); Calcium 9.1 mg/dL (8.4-10.2); Carbon Dioxide 22 mmol/L (22-30); Chloride 110 mmol/L (98-107); Creatine Kinase 464 U/L (30-135); Glucose 82 mg/dL (74-99); Magnesium 1.6 mg/dL (1.6-2.3); Non-African American GFR(CKD) >90 (>60 ml/min/1.73 sqM); Sodium 141 mmol/L (137-145)
--- NOTE | 2019-03-01 08:03 | P.PN ---
Subjective Progress Note Date: 02/28/19 Principal diagnosis: this is a pleasant 23 years old female with past medical history of depression, previous suicidal attempt, anxiety, irritable bowel syndrome, ex-smoker.presents because of drug overdose and altered mental status.she's follow with Dr. Scott in the outpatient setting.the patient was found in her home by her grandfather this morning at 7:20 AM unresponsive medical embolus for her, she has few tablets of all her medicines with bottles on the floor, her medications include tizanidine, Zofran, naproxen, Narco 5-325 mg and Xanax 1 mg. When she was found on the floor she was unresponsive so EMS came and brought her to the emergency room. There was a so psych bladder at bedside stated into the family that she is serial and she wanted them to forgive her. However patient cannot provide information so information was taken from the records and family at bedside including the father and grandparents. As per family patient has history of depression and she follows with mental health community, last time it was about 2 months ago, she has history of depression and suicidal ideation by cutting her wrist about one year ago. She has history of 2 DUIs and she cannot drive so her grandfather drives her back and forth. She smokes about half pack per day, she cannot drink alcohol because she is on probation but she uses cocaine with no history of IV drug abuse. vitals are stable, her rhythm rate was 10-11, currently 18. Labs reviewed showing unremarkable CBC, INR, BMPher liver enzymes. Bilirubin slightly elevated at 1.8, lactic acid is normal at 1.4. Creatinine kinase is 335, troponin is negative. EKG showing sinus tachycardia at 129. With no significant ST T changes, QTC is 480. Chest x-ray: No acute process.CT of the head and neck:normal CT of the brain and no acute osseous lesions as per radiologist.in the emergency room she received naloxone 0.4 mg once and 1 L of normal saline and placed on normal saline at 100 mL per hour 02/27/2019 Patient is fully awake and oriented. She gained her consciousness and she is back to her baseline. Patient is calm. She is telling me she took Zanaflex, Wellbutrin and Keflex antibiotics, she does not know how many pills. However patient was complaining of from muscle pain including the chest and abdominal wall and to lesser extent in her extremities. She is hemodynamically stable and afebrile, she is mildly tachycardic. CBC and BMP and liver enzymes were unremarkable. Creatinine kinase went up from 335 up to 1045she is on normal saline IV infusion continue that. And will order Tylenol for pain management. Psychiatrist evaluated the patient and recommended once medically stable she needs to be transferred to mental health unit 02/28/2019 Patient is lying in bed in no acute distress with patient sitter at the bedside. Patient states that she feels extremely bloated and is having the starts of menstrual cramps. Patient is requesting something for the abdominal pain and her anxiety. Home medications were ordered. Patient is awaiting an inpatient psychiatric facility at this time. Case management and social work are following. Currently patient denies any shortness of breath or palpitations. Patient is having some chest discomfort as she states that her grandfather started compressions on her when she was found unresponsive in the bathroom. No bruising noted. Patient is afebrile. Patient denies any nausea or vomiting and is tolerating diet. CK is elevated at 791. Will repeat am labs. Objective - Vital Signs Vital signs: Vital Signs Temp 98 F 02/28/19 15:45 Pulse 92 02/28/19 15:45 Resp 16 02/28/19 15:45 BP 121/75 02/28/19 15:45 Pulse Ox 98 02/28/19 15:45 Intake & Output 02/28/19 02/28/19 03/01/19 06:59 18:59 06:59 Intake Total 600 420 Balance 600 420 Weight 59 kg Intake: Intake, IV Titration 600 Amount Sodium Chloride 0.9% 1, 600 000 ml @ 200 mls/hr IV . Q5H [facility] Rx#:[id number] Oral 420 Other: Voiding Method Toilet Toilet # Voids 2 2 - Exam GENERAL: Patient is fully awake and oriented 3. She is back to her basic mental status HEENT: Pupils are round and equally reacting to light. EOMI. No scleral icterus. No conjunctival pallor. Normocephalic, atraumatic. No pharyngeal erythema. No thyromegaly. CARDIOVASCULAR: S1 and S2 present. No murmurs, rubs, or gallops. Mild chest wall tenderness PULMONARY: Chest is clear to auscultation, no wheezing or crackles. ABDOMEN: Soft, nontender, mildly distended, normoactive bowel sounds. No palpable organomegaly. Mild tenderness noted on palpation MUSCULOSKELETAL: No joint swelling or deformity. EXTREMITIES: No cyanosis, clubbing, or pedal edema. -NEUROLOGICAL: Gross neurological examination did not reveal any focal deficits. Cranial nerves are grossly intact, strength and motor is 5/5 in all extremities. Sensation is intact SKIN: No rashes. No petechiae - Labs CBC & Chem 7: 03/01/19 06:50 02/28/19 05:24 Labs: Abnormal Lab Results - Last 24 Hours (Table) 02/28/19 02/28/19 Range/Units 05:24 05:24 RBC 3.76 L (3.80-5.40) m/uL Chloride 112 H (98-107) mmol/L Carbon Dioxide 21 L (22-30) mmol/L Creatine Kinase 791 H (30-135) U/L Assessment and Plan Assessment: metabolic encephalopathy secondary to drug overdose. Improved Rhabdomyolysis Suicidal ideation and attempt by drug overdose Depression and anxiety, with previous history of suicidal attempt Irritable bowel syndrome cigarette smoker Substance abuse including cocaine DVT prophylaxis: Subcutaneous heparin GI Prophylaxis: Pepcid Plan: Recommend to continue current medications, management, and symptomatic treatment. Patient sitter will remain at this time for suicide precautions. Social work following for placement to an inpatient psychiatric facility. Will continue to monitor closely. Will continue with IV normal saline at this time. Will repeat am labs. Prognosis is guarded. Further recommendations to follow.
[2019-03-01] MEDS: ACETAMINOPHEN TAB 325 MG TAB PO PRN ×2 (11:27→19:07)
[2019-03-01] MEDS: ONDANSETRON 4 MG/2 ML VIAL IVP PRN (16:35)
[2019-03-01] MEDS: Acetaminophen-Codeine 300-30mg TAB PO PRN (22:58)
--- NOTE | 2019-03-01 23:38 | P.PN ---
Subjective Progress Note Date: 03/01/19 Principal diagnosis: drug overdose this is a pleasant 23 years old female with past medical history of depression, previous suicidal attempt, anxiety, irritable bowel syndrome, ex-smoker.presents because of drug overdose and altered mental status.she's follow with Dr. Scott in the outpatient setting.the patient was found in her home by her grandfather this morning at 7:20 AM unresponsive medical embolus for her, she has few tablets of all her medicines with bottles on the floor, her medications include tizanidine, Zofran, naproxen, Narco 5-325 mg and Xanax 1 mg. When she was found on the floor she was unresponsive so EMS came and brought her to the emergency room. There was a so psych bladder at bedside stated into the family that she is serial and she wanted them to forgive her. However patient cannot provide information so information was taken from the records and family at bedside including the father and grandparents. As per family patient has history of depression and she follows with mental health community, last time it was about 2 months ago, she has history of depression and suicidal ideation by cutting her wrist about one year ago. She has history of 2 DUIs and she cannot drive so her grandfather drives her back and forth. She smokes about half pack per day, she cannot drink alcohol because she is on probation but she uses cocaine with no history of IV drug abuse. vitals are stable, her rhythm rate was 10-11, currently 18. Labs reviewed showing unremarkable CBC, INR, BMPher liver enzymes. Bilirubin slightly elevated at 1.8, lactic acid is normal at 1.4. Creatinine kinase is 335, troponin is negative. EKG showing sinus tachycardia at 129. With no significant ST T changes, QTC is 480. Chest x-ray: No acute process.CT of the head and neck:normal CT of the brain and no acute osseous lesions as per radiologist.in the emergency room she received naloxone 0.4 mg once and 1 L of normal saline and placed on normal saline at 100 mL per hour 02/27/2019 Patient is fully awake and oriented. She gained her consciousness and she is back to her baseline. Patient is calm. She is telling me she took Zanaflex, Wellbutrin and Keflex antibiotics, she does not know how many pills. However patient was complaining of from muscle pain including the chest and abdominal wall and to lesser extent in her extremities. She is hemodynamically stable and afebrile, she is mildly tachycardic. CBC and BMP and liver enzymes were unremarkable. Creatinine kinase went up from 335 up to 1045she is on normal saline IV infusion continue that. And will order Tylenol for pain management. Psychiatrist evaluated the patient and recommended once medically stable she needs to be transferred to mental health unit 02/28/2019 Patient is lying in bed in no acute distress with patient sitter at the bedside. Patient states that she feels extremely bloated and is having the starts of menstrual cramps. Patient is requesting something for the abdominal pain and her anxiety. Home medications were ordered. Patient is awaiting an inpatient psychia tric facility at this time. Case management and social work are following. Currently patient denies any shortness of breath or palpitations. Patient is having some chest discomfort as she states that her grandfather started compressions on her when she was found unresponsive in the bathroom. No bruising noted. Patient is afebrile. Patient denies any nausea or vomiting and is tolerating diet. CK is elevated at 791. Will repeat am labs. 03/01/2019 Patient is currently lying in the bed comfortably. Complains of nausea . No ulcers or voming. Tolerating oral diet. CPK level is coming down to 464 now.patientwas given CPR while she was found unresponsive in the bathroom. List of chest pain or shortness of breath. No headache or dizziness or lightheadedness.atient has been afebrile. Discussed with her mother at bedside. Anticipate discharged to inpatient psychiatric unit the next 24 hours with more clinical improvement and trending down of CPK level. Current medications reviewed. Objective - Vital Signs Vital signs: Vital Signs Temp 98.6 F 03/01/19 14:30 Pulse 76 03/01/19 14:30 Resp 16 03/01/19 14:30 BP 113/69 03/01/19 14:30 Pulse Ox 98 03/01/19 14:30 Intake & Output 02/28/19 03/01/19 03/01/19 18:59 06:59 18:59 Intake Total 420 1900 Balance 420 1900 Intake: Intake, IV Titration 1900 Amount Sodium Chloride 0.9% 1, 1900 000 ml @ 200 mls/hr IV . Q5H [facility] Rx#:[id number] Oral 420 Other: Voiding Method Toilet Toilet Toilet # Voids 2 1 - Exam GENERAL: Patient is fully awake and oriented 3. She is back to her basic mental status HEENT: Pupils are round and equally reacting to light. EOMI. No scleral icterus. No conjunctival pallor. Normocephalic, atraumatic. No pharyngeal erythema. No thyromegaly. CARDIOVASCULAR: S1 and S2 present. No murmurs, rubs, or gallops. Mild chest wall tenderness PULMONARY: Chest is clear to auscultation, no wheezing or crackles. ABDOMEN: Soft, nontender, mildly distended, normoactive bowel sounds. No palpable organomegaly. Mild tenderness noted on palpation MUSCULOSKELETAL: No joint swelling or deformity. EXTREMITIES: No cyanosis, clubbing, or pedal edema. -NEUROLOGICAL: Gross neurological examination did not reveal any focal deficits. Cranial nerves are grossly intact, strength and motor is 5/5 in all extremities. Sensation is intact SKIN: No rashes. No petechiae - Labs CBC & Chem 7: 03/01/19 06:50 03/01/19 06:50 Labs: Abnormal Lab Results - Last 24 Hours (Table) 03/01/19 Range/Units 06:50 Chloride 110 H (98-107) mmol/L BUN 4 L (7-17) mg/dL Creatine Kinase 464 H (30-135) U/L Assessment and Plan Assessment: acute metabolic encephalopathy secondary to drug overdose. Improved Rhabdomyolysis Suicidal ideation and attempt by drug overdose Depression and anxiety, with previous history of suicidal attempt Irritable bowel syndrome cigarette smoker Substance abuse including cocaine DVT prophylaxis: Subcutaneous heparin GI Prophylaxis: Pepcid Plan: Recommend to continue current medications, management, and symptomatic treatment. Patient sitter will remain at this time for suicide precautions. Social work following for placement to an inpatient psychiatric facility. Will continue to monitor closely. Will continue with IV normal saline at this time. Will repeat am labs. Prognosis is guarded. Further recommendations to follow. Time with Patient: Greater than 30
[2019-03-02] MEDS: ALPRAZolam 1 MG TAB PO SCH (07:12)
[2019-03-02] MEDS: SODIUM CHLORIDE 0.9% 1,000 ML IV SCH (07:12)
[2019-03-02] MEDS: FAMOTIDINE 20 MG TAB PO SCH (07:12)
[2019-03-02] MEDS: HEPARIN SODIUM,PORCINE 5,000 UNIT/ML 1 ML VIAL SQ SCH (07:13)
[2019-03-02 07:58] LABS: Basophils % (A) 1 %; Eosinophils # (A) 0.3 k/uL (0-0.7); Eosinophils % (A) 5 %; HCT 39.7 % (34.0-46.0); HGB 13.1 gm/dL (11.4-16.0); Lymphocytes # (A) 2.3 k/uL (1.0-4.8); Lymphocytes % (A) 44 %; MCH 31.4 pg (25.0-35.0); MCV 95.1 fL (80.0-100.0); Mean Platelet Volume 7.4; Monocytes # (A) 0.4 k/uL (0-1.0); Monocytes % (A) 7 %; Neutrophils # (A) 2.1 k/uL (1.3-7.7); Neutrophils % (A) 40 %; Platelet Count 286 k/uL (150-450); RBC 4.18 m/uL (3.80-5.40); RDW 12.5 % (11.5-15.5); WBC 5.3 k/uL (3.8-10.6)
[2019-03-02 08:08] LABS: African American GFR (CKD) >90 (>60 ml/min/1.73 sqM); Anion Gap 8 mmol/L; Blood Urea Nitrogen 8 mg/dL (7-17); Calcium 9.7 mg/dL (8.4-10.2); Carbon Dioxide 24 mmol/L (22-30); Chloride 109 mmol/L (98-107); Creatine Kinase 224 U/L (30-135); Glucose 89 mg/dL (74-99); Magnesium 1.9 mg/dL (1.6-2.3); Non-African American GFR(CKD) >90 (>60 ml/min/1.73 sqM); Potassium 4.1 mmol/L (3.5-5.1); Sodium 141 mmol/L (137-145)
[2019-03-02] MEDS: Acetaminophen-Codeine 300-30mg TAB PO PRN (08:57)
[2019-03-02] MEDS ORDERED: NICOTINE 14MG/24HR PATCH TRANSDERM SCH (13:15)
[2019-03-02 15:15] VITALS: BP 97/61; PULSE 67; RESP 16; TEMP 98.3
[2019-03-02] MEDS: ONDANSETRON 4 MG/2 ML VIAL IVP PRN (17:26)
== END 2019-03-02 19:08 | DRG 917 ==
LOC: EC 07:55 → 3SCARD 09:54 → 4SSUR 03-01 02:34
PROVIDERS: ADMIT Internal Medicine; ATTEND Internal Medicine
DX: T42.4X2A Poisoning by benzodiazepines, intentional self-harm, initial encounter (principal); G92 Toxic encephalopathy; M62.82 Rhabdomyolysis; T42.8X2A Poisoning by antiparkinsonism drugs and other central muscle-tone depressants, intentional self-harm, initial encounter; T45.0X2A Poisoning by antiallergic and antiemetic drugs, intentional self-harm, initial encounter; T39.312A Poisoning by propionic acid derivatives, intentional self-harm, initial encounter; T39.1X2A Poisoning by 4-Aminophenol derivatives, intentional self-harm, initial encounter; F32.9 Major depressive disorder, single episode, unspecified; Z91.5 Personal history of self-harm; Y92.009 Unspecified place in unspecified non-institutional (private) residence as the place of occurrence of the external cause; F17.210 Nicotine dependence, cigarettes, uncomplicated; F41.9 Anxiety disorder, unspecified; F14.10 Cocaine abuse, uncomplicated
CPT/HCPCS: 36415; 70450; 71045; 72125; 80048; 80053; 80306; 80320; 80329; 81001; 81025; 82550; 82803; 83520; 83605; 83690; 83735; 83930; 84484; 84703; 85025; 85610; 93005; 96361; 96374; 99291

== ENCOUNTER 2019-03-02 19:05 | Inpatient (IN) | payer MEDICAID, OTHER ==
[2019-03-02] MEDS ORDERED: ZIPRASIDONE 20 MG VIAL IM PRN (19:43)
[2019-03-02] MEDS ORDERED: MAG HYDROX/AL HYDROX/SIMETH 30 ML CUP PO PRN (19:43)
[2019-03-02] MEDS ORDERED: MAGNESIUM HYDROXIDE 2,400 MG/10 ML CUP PO PRN (19:43)
[2019-03-02] MEDS: LORazepam 1 MG TAB PO PRN (20:51)
[2019-03-02] MEDS: ACETAMINOPHEN TAB 325 MG TAB PO PRN (23:08)
[2019-03-03] MEDS: LORazepam 1 MG TAB PO PRN ×2 (08:21→18:53)
[2019-03-03] MEDS: ONDANSETRON ODT 4 MG TAB PO PRN (08:21)
[2019-03-03] MEDS: NICOTINE 14MG/24HR PATCH TRANSDERM SCH (08:21)
[2019-03-03] MEDS: ACETAMINOPHEN TAB 325 MG TAB PO PRN ×2 (08:58→22:29)
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
[2019-03-03 16:23] LABS: Hemoglobin A1C 4.9 % (4.0-6.0)
[2019-03-03] MEDS: ARIPiprazole 5 MG TAB PO SCH (21:11)
[2019-03-03] MEDS ORDERED: DOCUSATE 100 MG CAP PO PRN (23:09)
--- NOTE | 2019-03-03 23:14 | P.MDCNMH ---
History of Present Illness H&P Date: 03/03/19 Chief Complaint: depression this is a pleasant 23 years old female with past medical history of depression, previous suicidal attempt, anxiety, irritable bowel syndrome, ex-smoker.presents because of drug overdose and altered mental status.she's follow with Dr. Scott in the outpatient setting.the patient was found in her home by her grandfather this morning at 7:20 AM unresponsive medical embolus for her, she has few tablets of all her medicines with bottles on the floor, her medications include tizanidine, Zofran, naproxen, Narco 5-325 mg and Xanax 1 mg. When she was found on the floor she was unresponsive so EMS came and brought her to the emergency room. patient was initially tachycardic and also has elevated CPK level/rhabdomyolysis. Improved with IV hydrationwhile in the mdical floor. Chest x-ray showed no acute process no acute intracranial process. Patient CT neck with no osseous lesions. Patient was given naloxone 0.4 mg onc in the ER and also is continued on IV hydration. Patient was seen by psychiatry and recommends inpatient admission. currently patient denied any complaints of chest pain or shortness of breath. No nausea vomiting or abdominal pain. Patient does have constipation. No fever no chills. No cough or sputum production. Review of Systems Constitutional: Patient denies any fever or chills . No generalized weakness or weight loss. Abdomen: Patient denied nausea vomiting and diarrhea and abdominal pain. Cardiovascular: Patient denies any chest pain or short of breath no palpitations. Respiratory: patient denied any cough is from production. No shortness of breath Neurologic: Patient denied any numbness or tingling headache. Musculoskeletal: Patient denies any complaints of joint swelling or deformity. Skin: Negative Psychiatric: Negative Endocrine: No heat or cold intolerance. No recent weight gain. Genitourinary: No dysuria or hematuria. All other 14 point ROS negative except the above Past Medical History Additional Past Medical History / Comment(s): IBS History of Any Multi-Drug Resistant Organisms: None Reported Past Surgical History: No Surgical Hx Reported Past Anesthesia/Blood Transfusion Reactions: No Reported Reaction Past Psychological History: Anxiety, Bipolar, Depression Smoking Status: Current every day smoker Past Alcohol Use History: Occasional Additional Past Alcohol Use History / Comment(s): "I'VE BEEN SOBER FOR 4 MONTHS". Past Drug Use History: Cocaine, Opiates Additional Drug Use History / Comment(s): PRESCRIPTION NORCO FOR LOWER BACK PAIN, "I AM SUPPOSED TO GET AN MRI SOON, I MISSED MY APPOINTMENT, I WAS IN HERE". - Past Family History Father History Unknown: Yes Family Medical History: Cancer, Diabetes Mellitus, Hypertension Medications and Allergies Home Medications Medication Instructions Recorded Confirmed Type ALPRAZolam [Xanax] 1 mg PO BID PRN 01/03/19 03/02/19 History HYDROcodone/APAP 5-325MG [[place] 1 tab PO BID PRN 01/03/19 03/02/19 History 5-325] Ondansetron [Zofran ODT] 4 mg PO BID PRN 02/26/19 03/02/19 History Allergies Allergy/AdvReac Type Severity Reaction Status Date / Time sulfamethoxazole Allergy Rash/Hives Verified 03/02/19 22:01 [From Bactrim] trimethoprim [From Bactrim] Allergy Rash/Hives Verified 03/02/19 22:01 ciprofloxacin [From Cipro] AdvReac Nausea & Verified 03/02/19 22:01 Vomiting Physical Exam Vitals: Vital Signs Temp Pulse Resp BP Pulse Ox 03/03/19 09:01 120 H 03/02/19 19:25 97.3 F L 98 16 129/72 99 Intake and Output 03/02/19 03/03/19 03/03/19 22:59 06:59 14:59 Other: Weight 57.351 kg PHYSICAL EXAMINATION: Patient is lying in the bed comfortably, no acute distress, awake alert and oriented.. HEENT: Normocephalic. Neck is supple. Pupils reactive. Nostrils clear. Oral cavity is moist. Ears reveal no drainage. Neck reveals no JVD, carotid bruits, or thyromegaly. CHEST EXAMINATION: Trachea is central. Symmetrical expansion. Lung bro clear to auscultation and percussion. CARDIAC: Normal S1, S2 with no gallops. No murmurs ABDOMEN: Soft. Bowel sounds normal. No organomegaly. No abdominal bruits. Extremities: reveal no edema. No clubbing or cyanosis Neurologically awake, alert, oriented x3 with well-coordinated movements. No focal deficits noted Skin: No rash or skin lesions. Psychiatric: Coperative. Nonsuicidal Musculoskeletal: No joint swelling or deformity. Normal range of motion. Cranial Nerve Examination - Cranial Nerves Cranial Nerve I- Olfactory: Intact Cranial Nerve II- Optic: Intact Cranial Nerve III- Oculomotor: Intact Cranial Nerve IV- Trochlear: Intact Cranial Nerve V- Trigeminal: Intact Cranial Nerve - Abducens: Intact Cranial Nerve VII- Facial: Intact Cranial Nerve VIII- Auditory: Intact Cranial Nerve IX- Glossopharyngeal: Intact Cranial Nerve X- Vagus: Intact Cranial Nerve XI- Accessory: Intact Cranial Nerve XII- Hypoglossal: Intact Results Labs: Abnormal Lab Results - Last 24 Hours (Table) 03/03/19 Range/Units 09:01 Triglycerides 210 H (<150) mg/dL Cholesterol 243 H (<200) mg/dL LDL Cholesterol, Calc 140 H (0-99) mg/dL HDL Cholesterol 61 H (40-60) mg/dL Assessment and Plan Assessment: Major depression with suicide attempt acute metabolic encephalopathy secondary to drug overdose. Improved acute Rhabdomyolysis. Improved withIV hydration. Suicidal ideation and attempt by drug overdose Depression and anxiety, with previous history of suicidal attempt hyperlipidemia with LDL 140 Irritable bowel syndrome cigarette smoker constipation Substance abuse including cocaine DVT prophylaxis: Subcutaneous heparin GI Prophylaxis: Pepcid Plan: Recommend to continue current medications, management, and symptomatic treatment. continue with symptomaticmanagement and stool softeners as needed for constipation. Patient has been counseled extensively forr smoking cessation polysubstance abuse.we will continue to follow closely and further recommendations based on the clinical course. Thank you for your consult. Time with Patient: Greater than 30
[2019-03-04 06:28] VITALS: RESP 16
[2019-03-04 09:03] LABS: Glucose,Whole Blood 96 mg/dL (75-99)
[2019-03-04] MEDS: CITALOPRAM HYDROBROMIDE 10 MG TAB PO SCH (10:20)
[2019-03-04] MEDS: NICOTINE 14MG/24HR PATCH TRANSDERM SCH (10:20)
[2019-03-04] MEDS: ONDANSETRON ODT 4 MG TAB PO PRN ×2 (10:21→21:09)
[2019-03-04 11:43] LABS: Basophils % (A) 0 %; Eosinophils # (A) 0.1 k/uL (0-0.7); Eosinophils % (A) 1 %; HCT 43.6 % (34.0-46.0); HGB 14.8 gm/dL (11.4-16.0); Lymphocytes # (A) 1.3 k/uL (1.0-4.8); Lymphocytes % (A) 18 %; MCH 31.7 pg (25.0-35.0); MCV 93.3 fL (80.0-100.0); Mean Platelet Volume 7.6; Monocytes # (A) 0.4 k/uL (0-1.0); Monocytes % (A) 5 %; Neutrophils # (A) 5.4 k/uL (1.3-7.7); Neutrophils % (A) 74 %; Platelet Count 346 k/uL (150-450); RBC 4.67 m/uL (3.80-5.40); RDW 12.3 % (11.5-15.5); WBC 7.2 k/uL (3.8-10.6)
[2019-03-04 11:54] LABS: African American GFR (CKD) >90 (>60 ml/min/1.73 sqM); Anion Gap 13 mmol/L; Blood Urea Nitrogen 13 mg/dL (7-17); Calcium 10.8 mg/dL (8.4-10.2); Carbon Dioxide 23 mmol/L (22-30); Chloride 103 mmol/L (98-107); Glucose 98 mg/dL (74-99); Non-African American GFR(CKD) >90 (>60 ml/min/1.73 sqM); Potassium 4.9 mmol/L (3.5-5.1); Sodium 139 mmol/L (137-145)
[2019-03-04] MEDS: LORazepam 1 MG TAB PO PRN ×2 (12:26→21:09)
[2019-03-04] MEDS: ACETAMINOPHEN TAB 325 MG TAB PO PRN ×2 (12:26→21:10)
--- NOTE | 2019-03-04 14:05 | P.PN ---
Progress Note - Text Progress Note Date: 03/04/19 Interval History: patient is a 23-year-old female who was seen today in her room because she reports that she broke up feeling quite nauseated this morning as well as lightheaded, complaining of body aches. Patient states that she was feeling fairly well yesterday was able to eat yesterday evening but woke up not feeling well this morning. She states that she was attending groups and activities yesterday but this morning has been staying in bed because she does not physically feel well. Mental Status: Appearance/Attitude: patient is lying in bed, stating that she doesn't feel well from a physical standpoint makes eye contact and was cooperative Behavior: patient does not exhibit any psychomotor agitation or retardation. Speech/Language: patient's speech is spontaneous and normal alignment rhythm and she is coherent Thought Process: patient is goal-directed there is no evidence of loose association or flight of ideas Thought Content: patient denies any auditory or visual hallucinations no delusions or paranoid ideation were elicited. Patient states that she is not feeling well physically woke up feeling nauseated, has been vomiting as well as feeling lightheaded and dizzy. She states that she was doing well last evening and woke up feeling this way. She reports body aches as well. Patient states that she slept fairly well. Suicidal/Homicidal Ideation: patient denies any current suicidal or homicidal ideation Sensorium/Cognition: a she is alert and oriented to person, place and time and her recent and remote memory are grossly intact Mood/Affect: patient's mood is depressed and slightly anxious and her affect is appropriate to her mood Insight/Judgment: patient's insight and judgment are fair Assessment: patient states that she woke up feeling ill physically with nausea and vomiting as well as muscle aches and chills. Patient was attending groups and activities and did sleep fairly well last evening.patient's CBC was within normal limits,influenza tests were negative. Plan: patient will continue on Abilify 2-1/2 mg at bedtime and Celexa 5 mg in the morning she continues on Ativan as needed admission be slowly tapered and discontinued over the weekend. Patient an outpatient was getting Xanax 2 mg tablets #30 and last filled on 02/08/2019.patient continues to require hospitalization to further stabilize her mood, she declined substance abuse treatment as an inpatient yesterday.
[2019-03-04] MEDS: ARIPiprazole 5 MG TAB PO SCH (21:06)
[2019-03-05] MEDS: NICOTINE 14MG/24HR PATCH TRANSDERM SCH (09:49)
[2019-03-05] MEDS: CITALOPRAM HYDROBROMIDE 10 MG TAB PO SCH (09:49)
[2019-03-05] MEDS: LORazepam 1 MG TAB PO PRN ×2 (09:50→18:52)
[2019-03-05] MEDS: ONDANSETRON ODT 4 MG TAB PO PRN ×3 (09:50→21:00)
[2019-03-05] MEDS: ACETAMINOPHEN TAB 325 MG TAB PO PRN ×2 (09:50→18:52)
--- NOTE | 2019-03-05 12:02 | P.PN ---
Progress Note - Text Progress Note Date: 03/05/19 interval history: Patient seen in [facility] today. She reports she's having significant difficulty with nausea today. She says she didn't eat much yesterday and that didn't have breakfast today. She is taking her psychotropic medications. She says that her mood is doing fine. Mental status exam: She is seen in her room as she did not want to come to the interview room with a female nurse present. She describes that her mood is doing fine. She complains of significant nausea. She denies any thoughts of harm to self. She does not voice any thoughts of harm to others. There is no evidence of psychosis or agitation. Plan: We'll have medical follow-up regarding complaints of nausea. Maintain current psychotropic medications as ordered. We'll continue to monitor for medication side effects and monitor her status and continue to cover this patient through the weekend.
[2019-03-05] MEDS: FAMOTIDINE 20 MG TAB PO SCH ×2 (12:40→20:58)
[2019-03-05] MEDS: MELATONIN 3 MG TABLET PO SCH (20:58)
[2019-03-05] MEDS: ARIPiprazole 5 MG TAB PO SCH (20:58)
[2019-03-06] MEDS: ONDANSETRON ODT 4 MG TAB PO PRN ×2 (09:16→18:41)
[2019-03-06] MEDS: FAMOTIDINE 20 MG TAB PO SCH ×2 (09:16→21:45)
[2019-03-06] MEDS: NICOTINE 14MG/24HR PATCH TRANSDERM SCH (09:16)
[2019-03-06] MEDS: CITALOPRAM HYDROBROMIDE 10 MG TAB PO SCH (09:16)
[2019-03-06] MEDS: LORazepam 1 MG TAB PO PRN ×2 (09:17→18:41)
[2019-03-06] MEDS: ACETAMINOPHEN TAB 325 MG TAB PO PRN ×2 (09:17→17:45)
--- NOTE | 2019-03-06 15:11 | P.PN ---
Progress Note - Text Progress Note Date: 03/06/19 interval history: Patient is seen again today in cross coverage. She is feeling much better today. She is not feeling nauseated and has not had any vomiting today she is eating today. She thinks getting back on the Pepcid as been helpful. Her mood seems to be doing well and she seems to be tolerating her psychotropic medications fine. She is attending groups today. Mental status exam: She is alert and cooperative with the interview. Her speech is fluent, not rapid or pressured. Her thought processes are organized. Her mood is improved. She does not verbalize any thoughts of harm to self or others. There is no evidence of any psychosis or agitation. Plan: Patient will be maintained on current psychotropic medication regimen. Continue to monitor for any medication side effects and monitor her ongoing response to treatment which is improved. She relates that she is showing improved status compared to admission.
[2019-03-06] MEDS: ARIPiprazole 5 MG TAB PO SCH (21:45)
[2019-03-06] MEDS: MELATONIN 3 MG TABLET PO SCH (21:45)
[2019-03-07] MEDS: NICOTINE 14MG/24HR PATCH TRANSDERM SCH (08:28)
[2019-03-07] MEDS: LORazepam 1 MG TAB PO PRN ×2 (08:29→16:49)
[2019-03-07] MEDS: CITALOPRAM HYDROBROMIDE 10 MG TAB PO SCH (08:29)
[2019-03-07] MEDS: ONDANSETRON ODT 4 MG TAB PO PRN ×2 (08:29→16:50)
[2019-03-07] MEDS: FAMOTIDINE 20 MG TAB PO SCH ×2 (08:29→20:51)
[2019-03-07] MEDS: ACETAMINOPHEN TAB 325 MG TAB PO PRN ×3 (08:31→16:50)
[2019-03-07] MEDS: ARIPiprazole 5 MG TAB PO SCH (11:02)
--- NOTE | 2019-03-07 13:43 | P.PN ---
Progress Note - Text Progress Note Date: 03/07/19 Chief complaint: "I'm feeling better today " Subjective: The patient has been seen today as follow-up, chart reviewed, case discussed with the treatment team. Patient slept about 6-7 hours last night. Patient has been going to groups and other unit activities. Patient reports fair appetite. Patient reports feeling better with the medication and Abilify did help her mood and depression symptoms. Patient agreed to increase the dose of Abilify 5 mg for better control of mood symptoms. She minimizes anxiety and reports "not many racing thoughts in my mind". 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 Patient reports has been sober from alcohol for about 4 months but she had some problems was using Xanax off the street. She denies any current withdrawal symptoms from benzodiazepines. Patient was very fixated on discharge to stay with her family during the [place]. The patient is compliant with her medications and denies any adverse reactions. Patient denies any history of hallucinations or other psychotic symptoms, and he reports last time has manic symptoms was before this admission. Objective: Vitals has been reviewed. Mental status examination; Appearance: The patient appears stated age, adequately groomed and dressed, no specific features. Gait/posture: Normal gait, Normal arm swinging: No abnormal movements. Attitude and behavior: engaged, cooperative, eye contact. Motor activity: Normal psychomotor activity Speech: Normal rate, tone. Mood: Anxious Affect: Constricted Thought form: goal-directed, linear, coherent. Thought content: Non-delusional, denies suicidal thoughts, denies homicidal thou ghts, denies intentions or plans. Perception: Denies any auditory or visual hallucinations Attention: No impairment. Patient was able to repeat serial 5. Orientation: Patient patient was fully oriented to time place person and situation. Insight: Patient has fair insight about his psychiatric disorder. Judgment: Patient has fair judgment about his psychiatric treatment. Assessment: Bipolar disorder type I, current episode depressed, moderate. Alcohol use disorder, and energy admission. Sedative hypnotic use disorder, moderate. Plan: Continue inpatient level of care due to further stabilization on medications and discharge planning Precautions: Continue 15 minutes check for safety. Consider medical consultation if any acute medical issues arise. Provide the patient individual, group therapy, substance use disorder counseling to give better insight and learn coping skills. Medications: Continue Abilify and increase the dose to 5 mg daily for mood stabilization. Continue Celexa 5 mg daily for anxiety and depression symptoms. Discharge patient to OUTPATIENT services upon a stabilization Expected LOS: 1-2 days.
[2019-03-07] MEDS: MELATONIN 3 MG TABLET PO SCH (20:51)
[2019-03-08 07:18] VITALS: TEMP 98.7
[2019-03-08] MEDS: NICOTINE 14MG/24HR PATCH TRANSDERM SCH (08:12)
[2019-03-08] MEDS: FAMOTIDINE 20 MG TAB PO SCH (08:13)
[2019-03-08] MEDS: CITALOPRAM HYDROBROMIDE 10 MG TAB PO SCH (08:13)
[2019-03-08] MEDS: ARIPiprazole 5 MG TAB PO SCH (08:13)
[2019-03-08] MEDS: LORazepam 1 MG TAB PO PRN (08:15)
[2019-03-08] MEDS: ONDANSETRON ODT 4 MG TAB PO PRN (08:15)
[2019-03-08] MEDS: ACETAMINOPHEN TAB 325 MG TAB PO PRN (08:15)
[2019-03-08 09:40] VITALS: BP 111/66; PULSE 112
--- NOTE | 2019-03-08 14:04 | P.DS ---
Providers Date of admission: 03/02/19 19:12 Expected date of discharge: 03/08/19 Attending physician: Samantha Cortés MD Consults: 03/02/19 19:43 Consult Physician Routine Consulting Provider: Blair Rebolledo Consult Reason/Comments: H & P and medical care Do you want consulting provider notified?: Yes Primary care physician: Lupe Garibay Hospital Course: Brief HPI: As per the HPI from initial psychiatric evaluation during this hospital stay: " patient states that she had been feeling increasingly depressed, had not been taking any medications, had been using cocaine recently, was prescribed Xanax and [place]. She states that she's been feeling depressed, tired with no motivation or interest to do things. She is been more withdrawn with little motivation and states that she also quit working recently. Patient states that she took the overdose of Seroquel and Flexeril because she was having a lot of negative thoughts, her paternal grandparents found her 7 hours later.patient was admitted to the medical floor and transferred to the inpatient unit. Patient is able to describe having manic episodes in the past where she doesn't require a lot of sleep, is up doing things at night, talking too much with unrealistic goals, and increased interest in sex and is more social. She states these alternate with periods of depression where she has disrupted sleep and fe els tired with little motivation or interest to do things. She states she is more withdrawn socially and states that she used more alcohol when she was depressed. She states that she stopped using alcohol 4 months ago. Patient states that she started using drugs at the age of 14 as well as alcohol. Patient states that her only prior admission was to [facility] in 2018 after a suicide attempt by cutting herself and she states that she was intoxicated with alcohol at the time. Patient states at that time she was placed on Wellbutrin, Seroquel and Zyprexa and was to follow up with community mental health. She states that she went to 2 visits and then stopped going as well as discontinued her medications after 2 months because she felt fine. patient states that she also has had episodes of anxiety where she becomes lightheaded, feeling sweaty, and states that these happen intermittently all the time and the reason that her primary care physician has been prescribing Xanax for her. Patient states that she's never had any substance abuse treatment and no other psychiatric treatment. " Hospital Course: Psychiatric: The patient was initiated on psychotropic medication including Abilify for mood stabilization and Celexa for depression and anxiety. Patient reports was not taking any psychiatric medications for the 9 months prior to this admission, but she was prescribed Xanax which was confirmed by maps report. The patient was given 3 days of Ativan to complete taper off benzodiazepines after discharge. The medication doses has been adjusted to optimize the stability of the psychiatric symptoms, and to avoid side effects. Patient tolerated the above medication/s very well, without side effects. The patient was admitted for a safe and supportive environment. A psychiatric, medical, and psychosocial evaluations were done on admission. The patient's hospital stay is unremarkable. Patient did not exhibit any aggression towards self or others during this hospitalization, and there was no requirements for emergency medications or restraints. The patient attended groups to obtain coping skills and process stress. Patient was compliant with her medications. Patient got along with her peers and with staff. The objective signs of depression and mood instability have been improved. She denies any suicidal ideation, not made any hopelessness/helplessness statements for more than 3 days prior to discharge. Maximum hospitalization benefit was reached and subsequently discharge was planned, and patient is appropriate to continue treatment on an outpatient basis. On the day of discharge the patient was able to create an appropriate safety plan and denies any side effect of medications. Discussion was held about need to stop use of alcohol and benzodiazepines , including their effects on mood, interaction with psychiatric medications, and their role in events leading up to admission. Patient is in the contemplation stage of a change. Assessment: Assessment at the day of discharge: The patient was seen at the day of discharge. Patient denies any sleep or appetite disturbances, denies feeling hopeless, worthless or helpless. Also, patient denies any other depressive or manic symptoms. Patient denies any psychotic symptoms. Patient denies suicidal or homicidal thoughts, intention or plans. Nurses and therapist reported patient is psychiatrically stable, and agreed to discharge plan. Mental status examination; Appearance: The patient appears stated age, adequately groomed and dressed, no specific features. Gait/posture: Normal gait, Normal arm swinging: No abnormal movements. Attitude and behavior: engaged, cooperative, eye contact. Motor activity: Normal psychomotor activity Speech: Normal rate, tone. Mood: Anxious Affect: Constricted Thought form: goal-directed, linear, coherent. Thought content: Non-delusional, denies suicidal thoughts, denies homicidal thoughts, denies intentions or plans. Perception: Denies any auditory or visual hallucinations Attention: No impairment. Orientation: Patient patient was fully oriented to time place person and situation. Insight: Patient has fair insight about her psychiatric disorder. Judgment: Patient has fair judgment about her psychiatric treatment. Discharge diagnosis: Bipolar disorder type I, current episode depressed, moderate. Alcohol use disorder, and energy admission. Sedative hypnotic use disorder, moderate. Health Concerns: Activity: As tolerated Diet: Regular Labs to be completed after discharge: As clinically indicated by her outpatient psychiatrist and PCP. Pt is currently on Abilify and she was educated about risk of metabolic syndrome and need to continue monitoring weight, and continue monitoring lipid panel and Hb A1C. Discharge checklist for suicide and violence to determine stability: Safety plan was discussed with the patient. Patient denies any current suicidal/ homicidal or violent ideation/plan/ intent. Patient has ability to address stressors/emotions. Patient understands and is comfortable with discharge plan. Outpatient appointments is near [facility] Emergency number (911, crisis number) provided to the patient. Avoid the use of street drugs and alcohol. Take all medications as prescribed. When you are in need of refills please contact your medical provider and/or outpatient psychiatrist to have this done. Please go to scheduled outpatient appointment for aftercare. If symptoms return or become worse call the crisis line at and/or go to the nearest emergency room for an evaluation. Pertinent Studies: Laboratory Tests Range/Units 03/03/19 03/03/19 03/03/19 09:01 09:01 09:01 WBC (3.8-10.6) k/uL RBC (3.80-5.40) m/uL Hgb (11.4-16.0) gm/dL Hct (34.0-46.0) % MCV (80.0-100.0) fL MCH (25.0-35.0) pg MCHC (31.0-37.0) g/dL RDW (11.5-15.5) % Plt Count (150-450) k/uL Neutrophils % % Lymphocytes % % Monocytes % % Eosinophils % % Basophils % % Neutrophils # (1.3-7.7) k/uL Lymphocytes # (1.0-4.8) k/uL Monocytes # (0-1.0) k/uL Eosinophils # (0-0.7) k/uL Basophils # (0-0.2) k/uL Sodium (137-145) mmol/L Potassium (3.5-5.1) mmol/L Chloride (98-107) mmol/L Carbon Dioxide (22-30) mmol/L Anion Gap mmol/L BUN (7-17) mg/dL Creatinine (0.52-1.04) mg/dL Est GFR (CKD-EPI)AfAm (>60 ml/min/1.73 sqM) Est GFR (CKD-EPI)NonAf (>60 ml/min/1.73 sqM) Glucose (74-99) mg/dL POC Glucose (mg/dL) (75-99) mg/dL POC Glu [employer] Technician ID Estimated Ave Glu mg/dL 94 Hemoglobin A1c (4.0-6.0) % 4.9 Calcium (8.4-10.2) mg/dL Triglycerides (<150) mg/dL 210 H Cholesterol (<200) mg/dL 243 H LDL Cholesterol, Calc (0-99) mg/dL 140 H HDL Cholesterol (40-60) mg/dL 61 H TSH (0.465-4.680) mIU/L 2.360 Oxcarbazepine (10-35) ug/mL <1.0 Influenza Type A RNA (Not Detectd) Influenza Type B (PCR) (Not Detectd) Range/Units 03/04/19 03/04/19 03/04/19 09:01 10:36 10:36 WBC (3.8-10.6) k/uL 7.2 RBC (3.80-5.40) m/uL 4.67 Hgb (11.4-16.0) gm/dL 14.8 Hct (34.0-46.0) % 43.6 MCV (80.0-100.0) fL 93.3 MCH (25.0-35.0) pg 31.7 MCHC (31.0-37.0) g/dL 34.0 RDW (11.5-15.5) % 12.3 Plt Count (150-450) k/uL 346 Neutrophils % % 74 Lymphocytes % % 18 Monocytes % % 5 Eosinophils % % 1 Basophils % % 0 Neutrophils # (1.3-7.7) k/uL 5.4 Lymphocytes # (1.0-4.8) k/uL 1.3 Monocytes # (0-1.0) k/uL 0.4 Eosinophils # (0-0.7) k/uL 0.1 Basophils # (0-0.2) k/uL 0.0 Sodium (137-145) mmol/L 139 Potassium (3.5-5.1) mmol/L 4.9 Chloride (98-107) mmol/L 103 Carbon Dioxide (22-30) mmol/L 23 Anion Gap mmol/L 13 BUN (7-17) mg/dL 13 Creatinine (0.52-1.04) mg/dL 0.83 Est GFR (CKD-EPI)AfAm (>60 ml/min/1.73 sqM) >90 Est GFR (CKD-EPI)NonAf (>60 ml/min/1.73 sqM) >90 Glucose (74-99) mg/dL 98 POC Glucose (mg/dL) (75-99) mg/dL 96 POC Glu [employer] Laboratory Technician ID Sneha Brock [address] Glu mg/dL Hemoglobin A1c (4.0-6.0) % Calcium (8.4-10.2) mg/dL 10.8 H Triglycerides (<150) mg/dL Cholesterol (<200) mg/dL LDL Cholesterol, Calc (0-99) mg/dL HDL Cholesterol (40-60) mg/dL TSH (0.465-4.680) mIU/L Oxcarbazepine (10-35) ug/mL Influenza Type A RNA (Not Detectd) Influenza Type B (PCR) (Not Detectd) Range/Units 03/04/19 13:00 WBC (3.8-10.6) k/uL RBC (3.80-5.40) m/uL Hgb (11.4-16.0) gm/dL Hct (34.0-46.0) % MCV (80.0-100.0) fL MCH (25.0-35.0) pg MCHC (31.0-37.0) g/dL RDW (11.5-15.5) % Plt Count (150-450) k/uL Neutrophils % % Lymphocytes % % Monocytes % % Eosinophils % % Basophils % % Neutrophils # (1.3-7.7) k/uL Lymphocytes # (1.0-4.8) k/uL Monocytes # (0-1.0) k/uL Eosinophils # (0-0.7) k/uL Basophils # (0-0.2) k/uL Sodium (137-145) mmol/L Potassium (3.5-5.1) mmol/L Chloride (98-107) mmol/L Carbon Dioxide (22-30) mmol/L Anion Gap mmol/L BUN (7-17) mg/dL Creatinine (0.52-1.04) mg/dL Est GFR (CKD-EPI)AfAm (>60 ml/min/1.73 sqM) Est GFR (CKD-EPI)NonAf (>60 ml/min/1.73 sqM) Glucose (74-99) mg/dL POC Glucose (mg/dL) (75-99) mg/dL POC Glu [employer] Laboratory Technician ID Estimated Ave Glu mg/dL Hemoglobin A1c (4.0-6.0) % Calcium (8.4-10.2) mg/dL Triglycerides (<150) mg/dL Cholesterol (<200) mg/dL LDL Cholesterol, Calc (0-99) mg/dL HDL Cholesterol (40-60) mg/dL TSH (0.465-4.680) mIU/L Oxcarbazepine (10-35) ug/mL Influenza Type A RNA (Not Detectd) Not Detected Influenza Type B (PCR) (Not Detectd) Not Detected Procedures: Plan: Patient will continue follow-up at-. As per discharge plan Continue the following medications: As per discharge plan Patient Condition at Discharge: Stable Patient will be discharge to home Discharge Medication List ARIPiprazole [Abilify] 5 mg PO DAILY #30 tab 03/08/19 [Rx] Citalopram Hydrobromide [CeleXA] 5 mg PO DAILY #30 tab 03/08/19 [Rx] Famotidine [Pepcid] 20 mg PO BID #30 tab 03/08/19 [Rx] LORazepam [Ativan] 0.5 mg PO TID 3 Days #6 tab 03/08/19 [Rx] Melatonin 3 mg PO HS #30 tablet 03/08/19 [Rx] Nicotine 14Mg/24Hr Patch [Habitrol] 1 patch TRANSDERM DAILY #30 patch 03/08/19 [Rx] Patient Condition at Discharge: Stable Plan - Discharge Summary Discharge Rx Participant: Yes New Discharge Prescriptions: New ARIPiprazole [Abilify] 5 mg PO DAILY #30 tab LORazepam [Ativan] 0.5 mg PO TID 3 Days #6 tab Citalopram Hydrobromide [CeleXA] 5 mg PO DAILY #30 tab Nicotine 14Mg/24Hr Patch [Habitrol] 1 patch TRANSDERM DAILY #30 patch Melatonin 3 mg PO HS #30 tablet Famotidine [Pepcid] 20 mg PO BID #30 tab Discontinued HYDROcodone/APAP 5-325MG [[place] 5-325] 1 tab PO BID PRN PRN Reason: Pain ALPRAZolam [Xanax] 1 mg PO BID PRN PRN Reason: Anxiety Ondansetron [Zofran ODT] 4 mg PO BID PRN PRN Reason: Nausea Discharge Medication List ARIPiprazole [Abilify] 5 mg PO DAILY #30 tab 03/08/19 [Rx] Citalopram Hydrobromide [CeleXA] 5 mg PO DAILY #30 tab 03/08/19 [Rx] Famotidine [Pepcid] 20 mg PO BID #30 tab 03/08/19 [Rx] LORazepam [Ativan] 0.5 mg PO TID 3 Days #6 tab 03/08/19 [Rx] Melatonin 3 mg PO HS #30 tablet 03/08/19 [Rx] Nicotine 14Mg/24Hr Patch [Habitrol] 1 patch TRANSDERM DAILY #30 patch 03/08/19 [Rx] Follow up Appointment(s)/Referral(s): Russell Griffiths [Outside] - 03/14/19 2:00 pm (Kadi Please arrive 30 minutes early for paperwork ) Lani Andrade MD [Primary Care Provider] - 1 Week Patient Instructions/Handouts: Bipolar Disorder (DC), Alcohol Intoxication (DC), Suicide Prevention (DC) Activity/Diet/Wound Care/Special Instructions: Activity and diet as tolerated. Avoid the use of street drugs and alcohol. Take all medications as prescribed. When you are in need of refills on your medications please contact your medical provider and/or outpatient psychiatrist to have this done. Please go to scheduled outpatient appointment for aftercare treatment. If symptoms return or become worse, call the crisis line at and/or go to the nearest emergency room for evaluation. Discharge Disposition: HOME SELF-CARE
[2019-03-08] MEDS ORDERED: LORazepam 0.5 MG TAB PO SCH (16:00)
== END 2019-03-08 12:36 | disposition home or self-care (01) | DRG 885 ==
LOC: 3MHU 19:12
PROVIDERS: ADMIT Psychiatry & Neurology Psychiatry; ATTEND Psychiatry & Neurology Psychiatry
DX: F31.30 Bipolar disorder, current episode depressed, mild or moderate severity, unspecified (principal); F13.99 Sedative, hypnotic or anxiolytic use, unspecified with unspecified sedative, hypnotic or anxiolytic-induced disorder; F10.129 Alcohol abuse with intoxication, unspecified; F41.9 Anxiety disorder, unspecified; Z87.891 Personal history of nicotine dependence; Z91.5 Personal history of self-harm; Z88.1 Allergy status to other antibiotic agents; Z88.2 Allergy status to sulfonamides
CPT/HCPCS: 80048; 80061; 80183; 83036; 84443; 85025; 87502; 93005

== ENCOUNTER 2019-04-10 14:42 | Emergency (ER) | payer OTHER ==
[2019-04-10] MEDS ORDERED: SODIUM CHLORIDE 0.9% 1,000 ML IV STA ×2 (15:45→16:29)
[2019-04-10 16:01] LABS: Basophils % (A) 1 %; Eosinophils # (A) 0.1 k/uL (0-0.7); Eosinophils % (A) 1 %; HCT 44.4 % (34.0-46.0); HGB 14.3 gm/dL (11.4-16.0); Lymphocytes # (A) 2.2 k/uL (1.0-4.8); Lymphocytes % (A) 27 %; MCH 30.4 pg (25.0-35.0); MCHC 32.3 g/dL (31.0-37.0); MCV 94.1 fL (80.0-100.0); Mean Platelet Volume 7.1; Monocytes # (A) 0.4 k/uL (0-1.0); Monocytes % (A) 5 %; Neutrophils # (A) 5.2 k/uL (1.3-7.7); Neutrophils % (A) 64 %; Platelet Count 316 k/uL (150-450); RBC 4.71 m/uL (3.80-5.40); RDW 12.6 % (11.5-15.5); WBC 8.1 k/uL (3.8-10.6)
[2019-04-10 16:03] LABS: Appearance,Urine Clear (Clear); Bilirubin,Urine Negative (Negative); Blood,Urine Negative (Negative); Color,Urine Yellow; Glucose,Urine (UA) Negative (Negative); Ketones,Urine Negative (Negative); Leukocyte Esterase,Urine Negative (Negative); Nitrite,Urine Negative (Negative); Protein,Urine Trace (Negative); Specific Gravity,Urine 1.016 (1.001-1.035); Urobilinogen,Urine <2.0 mg/dL (<2.0)
[2019-04-10 16:11] LABS: ALT 13 U/L (4-34); AST 22 U/L (14-36); Acetaminophen <10.0 ug/mL; African American GFR (CKD) >90 (>60 ml/min/1.73 sqM); Albumin 5.1 g/dL (3.5-5.0); Alkaline Phosphatase 78 U/L (38-126); Amylase 71 U/L (30-110); Anion Gap 14 mmol/L; Blood Urea Nitrogen 14 mg/dL (7-17); Calcium 9.7 mg/dL (8.4-10.2); Carbon Dioxide 24 mmol/L (22-30); Chloride 112 mmol/L (98-107); Glucose 91 mg/dL (74-99); Non-African American GFR(CKD) >90 (>60 ml/min/1.73 sqM); Potassium 4.3 mmol/L (3.5-5.1); Salicylate <1.0 mg/dL; Sodium 150 mmol/L (137-145); Total Bilirubin 0.5 mg/dL (0.2-1.3); Total Protein 8.2 g/dL (6.3-8.2)
[2019-04-10 16:12] LABS: Alcohol 218 mg/dL
[2019-04-10 16:14] LABS: Amphetamine Screen,Urine Not Detected (NotDetected); Barbiturate Screen,Urine Not Detected (NotDetected); Benzodiazepines Screen,Urine Not Detected (NotDetected); Cocaine Screen,Urine Not Detected (NotDetected); Methadone Screen, Urine Not Detected (NotDetected); Opiate Screen,Urine Not Detected (NotDetected); Oxycodone Screen, Urine Not Detected (NotDetected); Phencyclidine Screen,Urine Not Detected (NotDetected); Tricyclic Antidepressant,Urine Not Detected (NotDetected); Urn Cannabinoid Scrn Not Detected (NotDetected)
--- NOTE | 2019-04-10 18:36 | ED ---
General Adult HPI - General Source: patient, family, RN notes reviewed Mode of arrival: ambulatory Limitations: no limitations <Darian Jenkins P - Last Filed: 04/16/19 19:45> <Florina Walker P - Last Filed: 04/16/19 21:26> - General Chief complaint: Psychiatric Symptoms Stated complaint: Substance abuse Time Seen by Provider: 04/10/19 15:38 - History of Present Illness Initial comments: 23-year-old female with a past medical history of IBS, anxiety, bipolar disorder, depression presents to the emergency department for a chief complaint of suicidal thoughts. Patient states that she has been sober from alcohol since October. However last night she started drinking again. States this was exacerbated by a friend to "dropped dirty" and he came over from oral support. Patient states that this morning she got into an argument with her father about it he became suicidal. Patient took 20 Abilify in order to harm herself. Patient has a history of suicide attempts by overdose just one month ago. Patient initially had mild nausea, denying any other symptoms. States her resting heart rate is usually above 100.Patient has no other complaints at this time including shortness of breath, chest pain, abdominal pain, vomiting, headache, or visual changes. (Darian Jenkins) - Related Data Previous Rx's Medication Instructions Recorded ARIPiprazole [Abilify] 5 mg PO DAILY #30 tab 03/08/19 Citalopram Hydrobromide [CeleXA] 5 mg PO DAILY #30 tab 03/08/19 Famotidine [Pepcid] 20 mg PO BID #30 tab 03/08/19 LORazepam [Ativan] 0.5 mg PO TID 3 Days #6 tab 03/08/19 Melatonin 3 mg PO HS #30 tablet 03/08/19 Nicotine 14Mg/24Hr Patch [Habitrol] 1 patch TRANSDERM DAILY #30 patch 03/08/19 Allergies Allergy/AdvReac Type Severity Reaction Status Date / Time sulfamethoxazole Allergy Rash/Hives Verified 04/10/19 14:50 [From Bactrim] trimethoprim [From Bactrim] Allergy Rash/Hives Verified 04/10/19 14:50 ciprofloxacin [From Cipro] AdvReac Nausea & Verified 04/10/19 14:50 Vomiting Review of Systems ROS Other: All systems not noted in ROS Statement are negative. <AliceDarian P - Last Filed: 04/16/19 19:45> ROS Other: All systems not noted in ROS Statement are negative. <AaronFlorina P - Last Filed: 04/16/19 21:26> ROS Statement: Those systems with pertinent positive or pertinent negative responses have been documented in the HPI. Past Medical History Additional Past Medical History / Comment(s): IBS History of Any Multi-Drug Resistant Organisms: None Reported Past Surgical History: No Surgical Hx Reported Past Anesthesia/Blood Transfusion Reactions: No Reported Reaction Past Psychological History: Anxiety, Bipolar, Depression Smoking Status: Current every day smoker Past Alcohol Use History: Abuse, Daily, Heavy Past Drug Use History: Cocaine, Opiates - Past Family History Father History Unknown: Yes Family Medical History: Cancer, Diabetes Mellitus, Hypertension <Darian Jenkins P - Last Filed: 04/16/19 19:45> General Exam Limitations: no limitations General appearance: alert, in no apparent distress Head exam: Present: atraumatic, normocephalic, normal inspection Eye exam: Present: normal appearance, PERRL, EOMI. Absent: scleral icterus, conjunctival injection, periorbital swelling ENT exam: Present: normal exam, mucous membranes moist Neck exam: Present: normal inspection, full ROM. Absent: tenderness, meningismus, lymphadenopathy Respiratory exam: Present: normal lung sounds bilaterally. Absent: respiratory distress, wheezes, rales, rhonchi, stridor Cardiovascular Exam: Present: regular rate, normal rhythm, normal heart sounds. Absent: systolic murmur, diastolic murmur, rubs, gallop, clicks GI/Abdominal exam: Present: soft, normal bowel sounds. Absent: distended, tenderness, guarding, rebound, rigid Neurological exam: Present: alert, oriented X3, CN II-XII intact, normal gait, other (GCS 15) <AliceDarian P - Last Filed: 04/16/19 19:45> Course <Darian Jenkins P - Last Filed: 04/16/19 19:45> Vital Signs 04/10/19 04/10/19 04/10/19 14:48 16:00 18:00 Temperature 98.3 F Pulse Rate 104 H 88 114 H Respiratory 18 16 16 Rate Blood Pressure 101/72 109/87 98/62 O2 Sat by Pulse 96 99 99 Oximetry 04/10/19 04/10/19 04/10/19 19:00 19:24 21:39 Temperature 98.6 F Pulse Rate 106 H 100 109 H Respiratory 20 18 16 Rate Blood Pressure 118/70 118/70 109/60 O2 Sat by Pulse 99 99 97 Oximetry 04/10/19 04/11/19 04/11/19 22:53 00:43 01:29 Temperature 98.1 F Pulse Rate 97 90 75 Respiratory 18 18 18 Rate Blood Pressure 124/66 108/65 107/67 O2 Sat by Pulse 97 100 98 Oximetry 04/11/19 04/11/19 05:00 06:13 Temperature 97.8 F Pulse Rate 68 75 Respiratory 18 18 Rate Blood Pressure 98/60 O2 Sat by Pulse 100 Oximetry - Reevaluation(s) Reevaluation #1: 04/10/19 18:35 Spoke with poison control for a second time. Russel BARTLETT spoke with them the first time. Updated on vital signs and laboratory values. Recommend monitoring for another 3 hours until 9:15 and sober at which point patient will be medically cleared as long as she does not have any further symptoms. (Darian Jenkins) EKG Findings - EKG Comments: EKG Findings:: Sinus rhythm, ventricular rate 97, [place] interval 108, QTC 447 <Darian Jenkins P - Last Filed: 04/16/19 19:45> Medical Decision Making - Lab Data Result diagrams: 04/10/19 15:20 04/10/19 15:20 <Darian Jenkins P - Last Filed: 04/16/19 19:45> - Lab Data Result diagrams: 04/10/19 15:20 04/10/19 15:20 <Florina Walker P - Last Filed: 04/16/19 21:26> - Medical Decision Making She is well-appearing. Alert and oriented. CBC unremarkable. CMP shows mild hypernatremia, could be secondary to dehydration, patient given IV fluids. Serum alcohol found to be 218. Toxicology screen otherwise negative. Acetaminophen and salicylates are negative. HCG is not detected. Spoke with poison control, recommend further monitoring for another 3 hours at which point patient will be medically cleared for EPS eval. Patient has been monitored several times. Mother is at bedside. Care was signed out to Dr Walker @ [facility] (Darian Jenkins) Patient was seen and evaluated by emergency psychiatric services who recommend transfer to inpatient psychiatric facility. (Florina Walker) - Lab Data Lab Results 04/10/19 04/10/19 04/10/19 Range/Units 15:20 15:20 15:20 WBC 8.1 (3.8-10.6) k/uL RBC 4.71 (3.80-5.40) m/uL Hgb 14.3 (11.4-16.0) gm/dL Hct 44.4 (34.0-46.0) % MCV 94.1 (80.0-100.0) fL MCH 30.4 (25.0-35.0) pg MCHC 32.3 (31.0-37.0) g/dL RDW 12.6 (11.5-15.5) % Plt Count 316 (150-450) k/uL Neutrophils % 64 % Lymphocytes % 27 % Monocytes % 5 % Eosinophils % 1 % Basophils % 1 % Neutrophils # 5.2 (1.3-7.7) k/uL Lymphocytes # 2.2 (1.0-4.8) k/uL Monocytes # 0.4 (0-1.0) k/uL Eosinophils # 0.1 (0-0.7) k/uL Basophils # 0.0 (0-0.2) k/uL Sodium 150 H (137-145) mmol/L Potassium 4.3 (3.5-5.1) mmol/L Chloride 112 H (98-107) mmol/L Carbon Dioxide 24 (22-30) mmol/L Anion Gap 14 mmol/L BUN 14 (7-17) mg/dL Creatinine 0.75 (0.52-1.04) mg/dL Est GFR (CKD-EPI)AfAm >90 (>60 ml/min/1.73 sqM) Est GFR (CKD-EPI)NonAf >90 (>60 ml/min/1.73 sqM) Glucose 91 (74-99) mg/dL Calcium 9.7 (8.4-10.2) mg/dL Magnesium (1.6-2.3) mg/dL Total Bilirubin 0.5 (0.2-1.3) mg/dL AST 22 (14-36) U/L ALT 13 (4-34) U/L Alkaline Phosphatase 78 (38-126) U/L Total Protein 8.2 (6.3-8.2) g/dL Albumin 5.1 H (3.5-5.0) g/dL Amylase 71 (30-110) U/L Lipase 81 (23-300) U/L Urine Color Yellow Urine Appearance Clear (Clear) Urine pH 6.0 (5.0-8.0) Ur Specific [place] 1.016 (1.001-1.035) Urine Protein Trace H (Negative) Urine Glucose (UA) Negative (Negative) Urine Ketones Negative (Negative) Urine Blood Negative (Negative) Urine Nitrite Negative (Negative) Urine Bilirubin Negative (Negative) Urine Urobilinogen <2.0 (<2.0) mg/dL Ur Leukocyte Esterase Negative (Negative) Urine HCG, Qual (Not Detectd) Salicylates <1.0 mg/dL Urine Opiates Screen Not Detected (NotDetected) Ur Oxycodone Screen Not Detected (NotDetected) Urine Methadone Screen Not Detected (NotDetected) Ur Propoxyphene Screen Not Detected (NotDetected) Acetaminophen <10.0 ug/mL Ur Barbiturates Screen Not Detected (NotDetected) U Tricyclic Antidepress Not Detected (NotDetected) Ur Phencyclidine Scrn Not Detected (NotDetected) Ur Amphetamines Screen Not Detected (NotDetected) U Methamphetamines Scrn Not Detected (NotDetected) U Benzodiazepines Scrn Not Detected (NotDetected) Urine Cocaine Screen Not Detected (NotDetected) U Marijuana (THC) Screen Not Detected (NotDetected) Serum Alcohol 218 H* mg/dL 04/10/19 04/10/19 Range/Units 15:20 15:20 WBC (3.8-10.6) k/uL RBC (3.80-5.40) m/uL Hgb (11.4-16.0) gm/dL Hct (34.0-46.0) % MCV (80.0-100.0) fL MCH (25.0-35.0) pg MCHC (31.0-37.0) g/dL RDW (11.5-15.5) % Plt Count (150-450) k/uL Neutrophils % % Lymphocytes % % Monocytes % % Eosinophils % % Basophils % % Neutrophils # (1.3-7.7) k/uL Lymphocytes # (1.0-4.8) k/uL Monocytes # (0-1.0) k/uL Eosinophils # (0-0.7) k/uL Basophils # (0-0.2) k/uL Sodium (137-145) mmol/L Potassium (3.5-5.1) mmol/L Chloride (98-107) mmol/L Carbon Dioxide (22-30) mmol/L Anion Gap mmol/L BUN (7-17) mg/dL Creatinine (0.52-1.04) mg/dL Est GFR (CKD-EPI)AfAm (>60 ml/min/1.73 sqM) Est GFR (CKD-EPI)NonAf (>60 ml/min/1.73 sqM) Glucose (74-99) mg/dL Calcium (8.4-10.2) mg/dL Magnesium 2.1 (1.6-2.3) mg/dL Total Bilirubin (0.2-1.3) mg/dL AST (14-36) U/L ALT (4-34) U/L Alkaline Phosphatase (38-126) U/L Total Protein (6.3-8.2) g/dL Albumin (3.5-5.0) g/dL Amylase (30-110) U/L Lipase (23-300) U/L Urine Color Urine Appearance (Clear) Urine pH (5.0-8.0) Ur Specific [place] (1.001-1.035) Urine Protein (Negative) Urine Glucose (UA) (Negative) Urine Ketones (Negative) Urine Blood (Negative) Urine Nitrite (Negative) Urine Bilirubin (Negative) Urine Urobilinogen (<2.0) mg/dL Ur Leukocyte Esterase (Negative) Urine HCG, Qual Not Detected (Not Detectd) Salicylates mg/dL Urine Opiates Screen (NotDetected) Ur Oxycodone Screen (NotDetected) Urine Methadone Screen (NotDetected) Ur Propoxyphene Screen (NotDetected) Acetaminophen ug/mL Ur Barbiturates Screen (NotDetected) U Tricyclic Antidepress (NotDetected) Ur Phencyclidine Scrn (NotDetected) Ur Amphetamines Screen (NotDetected) U Methamphetamines Scrn (NotDetected) U Benzodiazepines Scrn (NotDetected) Urine Cocaine Screen (NotDetected) U Marijuana (THC) Screen (NotDetected) Serum Alcohol mg/dL Disposition Is patient prescribed a controlled substance at d/c from ED?: No Time of Disposition: 21:20 <Darian Jenkins P - Last Filed: 04/16/19 19:45> <Flornia Walker P - Last Filed: 04/16/19 21:26> Clinical Impression: Overdose, Suicide attempt Disposition: TRANSFER TO PSYCH HOSP/UNIT Condition: Fair Referrals: Jamar Spann MD [Primary Care Provider] - 1-2 days
[2019-04-10 22:54] VITALS: RESP 18
[2019-04-10] MEDS ORDERED: NICOTINE 14MG/24HR PATCH TRANSDERM SCH (23:45)
[2019-04-11] MEDS ORDERED: MELATONIN 3 MG TABLET PO SCH ×2 (00:30→21:00)
[2019-04-11 06:14] VITALS: BP 98/60; PULSE 75; TEMP 97.8
[2019-04-11] MEDS ORDERED: LORazepam 1 MG TAB PO SCH (09:00)
[2019-04-11] MEDS ORDERED: FAMOTIDINE 20 MG TAB PO SCH (09:00)
== END 2019-04-11 07:08 ==
LOC: EC 14:42
DX: T43.592A Poisoning by other antipsychotics and neuroleptics, intentional self-harm, initial encounter (principal); E87.0 Hyperosmolality and hypernatremia; F31.9 Bipolar disorder, unspecified; F41.9 Anxiety disorder, unspecified; F17.200 Nicotine dependence, unspecified, uncomplicated; Z88.2 Allergy status to sulfonamides; Z88.1 Allergy status to other antibiotic agents; Z91.5 Personal history of self-harm
CPT/HCPCS: 82075; 36415; 93005; 80053; 82150; 83690; 83735; 85025; 81003; 81025; 80306; 83520; 96360; 96361 ×2; 99285; G0480 ×2; 80320; 80329

== ENCOUNTER → 2019-07-06 | Outpatient (CLI) | payer OTHER ==
[2019-07-06 11:36] LABS: Basophils % (A) 1 %; Eosinophils # (A) 0.3 k/uL (0-0.7); Eosinophils % (A) 6 %; HGB 13.2 gm/dL (11.4-16.0); Lymphocytes # (A) 1.7 k/uL (1.0-4.8); Lymphocytes % (A) 31 %; MCH 31.4 pg (25.0-35.0); MCHC 33.8 g/dL (31.0-37.0); MCV 92.9 fL (80.0-100.0); Mean Platelet Volume 7.1; Monocytes # (A) 0.4 k/uL (0-1.0); Monocytes % (A) 7 %; Neutrophils % (A) 54 %; Platelet Count 278 k/uL (150-450); RDW 12.4 % (11.5-15.5); WBC 5.6 k/uL (3.8-10.6)
[2019-07-06 12:34] LABS: Alcohol <10 mg/dL
[2019-07-06 15:53] LABS: Urine Alcohol Negative (Negative); Urine Barbiturate Negative (Negative); Urine Cocaine Negative (Negative); Urine Methadone Negative (Negative); Urine Opiates Negative (Negative); Urine Phencyclidine Negative (Negative)
[2019-07-06 15:59] LABS: ALT 16 U/L (8-44); AST 17 U/L (13-35); African American GFR (CKD) 103.7 (60.0-200.0); Albumin/Globulin Ratio 2.05 (1.60-3.17); Alkaline Phosphatase 65 U/L (41-126); BUN/Creat Ratio 7.78 Ratio (12.00-20.00); Calcium 10.1 mg/dL (8.7-10.3); Carbon Dioxide 25.2 mmol/L (21.6-31.8); Chloride 104 mmol/L (96-109); Globulin 2.2 g/dL (1.6-3.3); Glucose 85 mg/dL (70-110); Non-African American GFR(CKD) 89.5 (60.0-200.0); Potassium 4.5 mmol/L (3.5-5.5); Sodium 141 mmol/L (135-145); Total Bilirubin 0.6 mg/dL (0.2-1.2); Total Protein 6.7 g/dL (6.2-8.2)
== END | disposition home or self-care (01) ==
LOC: LABWHC1 11:08
PROVIDERS: ATTEND Midwife
DX: F32.9 Major depressive disorder, single episode, unspecified (principal)
CPT/HCPCS: 80053; 85025; 80306; 36415; G0480; 80320

== ENCOUNTER → 2022-04-10 | Outpatient (CLI) | payer OTHER ==
--- NOTE | 2022-04-11 08:31 | US ---
EXAMINATION TYPE: Transabdominal DATE OF EXAM: 04/10/2022 4:36 PM COMPARISON: NONE CLINICAL HISTORY: Z36.89 CONFIRM GESTATIONAL AGE. Dates EXAM PERFORMED: Transabdominal (TA) EXAM MEASUREMENTS: GESTATIONAL AGE / DATING Physician Established: Not yet established Dates by LMP: ( 7 weeks/6 days) EDC: 11/21/2022 Dates by First Scan: No previous this is first scan Dates by Current Scan for: ( 7 weeks/4 days) EDC: 11/23/2022 MATERNAL ANATOMY Uterus: 10.4 x 6.3 x 4.7 cm Right Ovary: 3.0 x 2.1 x 2.2 cm Left Ovary: 3.0 x 1.7 x 2.6 cm Post CDS / Adnexa: no free fluid Presence of corpus luteal cyst: no Presence of subchorionic bleed: 1.2 x 1.2 x 0.5 cm GESTATION / SURVEY CRL: 1.3 cm (7 weeks/4 days) MSD: seen, not measured Yolk Sac (normal less than 6mm): 2.1 mm Heart Rate: 144 bpm Rhythm: Normal IUP: Viable IUP Date of LMP: 02/14/2022, [id number] Beta HcG (if available): Not available at this time IMPRESSION: 1. Single intrauterine gestation estimated at 7 weeks 4 days gestation based on crown-rump length. Ca rdiac activity measures 144 bpm. 2. There is a subchorionic hemorrhage adjacent measuring 1.2 x 1.2 x 0.5 cm.
== END | disposition home or self-care (01) ==
LOC: RADUSWWP 16:12
PROVIDERS: ATTEND Obstetrics & Gynecology
DX: Z36.89 Encounter for other specified antenatal screening (principal); O20.8 Other hemorrhage in early pregnancy; Z3A.01 Less than 8 weeks gestation of pregnancy
CPT/HCPCS: 76801

== ENCOUNTER → 2022-08-06 | Outpatient (CLI) | payer OTHER ==
[2022-08-07 02:13] LABS: MCHC 31.4 g/dL (32.0-37.0); MCV 98.6 fL (80.0-97.0); Mean Platelet Volume 10.6 fL (9.5-12.2); NRBC Per 100 WBC 0 /100 WBCS (0.0-0.0); Platelet Count 227 X 10*3/uL (140-440); RBC 3.55 X 10*6/uL (4.10-5.20); WBC 8.83 X 10*3/uL (4.50-10.00)
== END | disposition home or self-care (01) ==
LOC: LABWHC1 12:09
PROVIDERS: ATTEND Obstetrics & Gynecology
DX: Z34.82 Encounter for supervision of other normal pregnancy, second trimester (principal); Z3A.00 Weeks of gestation of pregnancy not specified
CPT/HCPCS: 36415; 82950; 85027

== ENCOUNTER → 2023-08-07 | Outpatient (CLI) | payer OTHER ==
--- NOTE | 2023-08-07 11:51 | USB ---
Reason for Exam: Clinical finding. Patient History: Currently using Hormonal Contraceptives, for 1 year. 05/31/2013, Benign Core Biopsy on the right side. 05/31/2013, Benign Core Biopsy on the left side. Technique: Method: Whole Breast Handheld. Findings: The whole breast of both breasts, the axilla of both breasts and the retroareolar of both breasts were scanned. In the right breast near the axillary region 3:00 position 12 cm from nipple is 0.7 x 0.5 x 0.7 cm hypoechoic area. This could be a small lymph node. At this 5:00 position 6 cm nipple is a 0.9 x 0.4 cm oval hypoechoic anechoic area. This may contain a surgical clip. At the 10:00 position 6 cm from the nipple is a 0.5 x 0.4 x 0.5 cm nearly anechoic structure with through transmission.. Left breast: In the axillary tail 12 cm in the nipple 3:00 position left breast is a 0.7 x 0.4 x 0.8 cm hypoechoic area could be a small intermammillary lymph node. Within the left breast 10:00 position 12 cm from nipple is a hypoechoic oval density measuring 2.1 x 0.7 x 1.2 cm. This could be a lymph node or previous fibroadenoma. At the 11:00 position 2 cm from the nipple is a hypoechoic area measuring 1.1 x 0.8 x 1.0 cm. A clip is adjacent. At the 11:00 position 2 cm from the nipple is a hypoechoic 1.0 x 1.1 x 0.8 cm area previously biopsied. No interval change within the bilateral breasts is evident. Overall Assessment: Benign, BI-RAD 2 Management: Screening Mammogram of both breasts at age 40. A clinical breast exam by your physician is recommended on an annual basis and results should be correlated with mammographic findings. This exam should not preclude additional follow-up of suspicious palpable abnormalities. Results were given to the patient verbally at the time of exam. Electronically signed and approved by: Tony Butler D.O. Radiologis
== END | disposition home or self-care (01) ==
LOC: RADUSWWP 09:31
PROVIDERS: ATTEND Obstetrics & Gynecology
DX: N64.4 Mastodynia (principal); N63.0 Unspecified lump in unspecified breast; N60.09 Solitary cyst of unspecified breast

== ENCOUNTER 2024-01-26 23:58 | Emergency (ER) | payer OTHER ==
[2024-01-27] MEDS: SODIUM CHLORIDE 0.9% 1,000 ML IV STA (00:30)
--- NOTE | 2024-01-27 00:30 | ED ---
Abdominal Pain HPI - General Chief Complaint: Abdominal Pain Stated Complaint: abd pain, Time Seen by Provider: 01/27/24 00:04 Source: patient, RN notes reviewed Mode of arrival: ambulatory Limitations: no limitations - History of Present Illness Initial Comments: 28-year-old female presents emergency department chief complaint of abdominal pain. Patient states has been having increasing nausea, vomiting and abdominal comfort. She states she probably has right upper quadrant abdominal pain but states also she has had increasing left lower quadrant with bulging in this area. She is a comes and goes. Patient does admit she had a section just over a year ago. She has decreased urine output because she feels dehydrated. She denies any chance of denies any vaginal symptoms. Denies any flank pain. - Related Data Home Medications Medication Instructions Recorded Confirmed Sertraline [Zoloft] 50 mg PO DAILY 11/10/22 11/14/22 Vit No.179/Iron/Folic 1 tab PO DAILY 11/14/22 11/14/22 [ Tablet] valACYclovir HCL [Valtrex] 1 tab PO DAILY 11/14/22 11/14/22 Previous Rx's Medication Instructions Recorded Acetaminophen Tab [Tylenol] 1,000 mg PO Q6H tab 11/16/22 Ibuprofen [Motrin] 600 mg PO Q6H #60 tab 11/16/22 oxyCODONE HCL [OxyIR] 5 mg PO Q4HR PRN #18 tab 11/16/22 Ondansetron Odt [Zofran Odt] 4 mg PO Q8HR PRN #14 tab 01/27/24 Allergies Allergy/AdvReac Type Severity Reaction Status Date / Time sulfamethoxazole Allergy Rash/Hives Verified 01/27/24 00:01 [From Bactrim] trimethoprim [From Bactrim] Allergy Rash/Hives Verified 01/27/24 00:01 Review of Systems ROS Statement: Those systems with pertinent positive or pertinent negative responses have been documented in the HPI. ROS Other: All systems not noted in ROS Statement are negative. Past Medical History Additional Past Medical History / Comment(s): IBS History of Any Multi-Drug Resistant Organisms: None Reported Past Surgical History: No Surgical Hx Reported Past Anesthesia/Blood Transfusion Reactions: No Reported Reaction Past Psychological History: Anxiety, Bipolar, Depression Smoking Status: Former smoker, Vaper Past Alcohol Use History: None Reported Past Drug Use History: None Reported - Past Family History Father History Unknown: Yes Family Medical History: Cancer, Diabetes Mellitus, Hypertension General Exam Limitations: no limitations General appearance: alert, in no apparent distress Head exam: Present: atraumatic, normocephalic, normal inspection Respiratory exam: Present: normal lung sounds bilaterally. Absent: respiratory distress, wheezes, rales, rhonchi, stridor Cardiovascular Exam: Present: regular rate, normal rhythm, normal heart sounds. Absent: systolic murmur, diastolic murmur, rubs, gallop, clicks GI/Abdominal exam: Present: soft, tenderness, normal bowel sounds. Absent: distended, guarding, rebound, rigid Back exam: Absent: CVA tenderness (R), CVA tenderness (L) Neurological exam: Present: alert Skin exam: Present: warm, dry, intact, normal color. Absent: rash Course Vital Signs 01/26/24 01/27/24 23:58 00:44 Temperature 98.4 F 98.0 F Pulse Rate 72 83 Respiratory 18 17 Rate Blood Pressure 127/77 112/70 O2 Sat by Pulse 99 99 Oximetry Medical Decision Making - Medical Decision Making Was pt. sent in by a medical professional or institution (, PA, KEYPUNCHER, urgent care, hospital, or senior living...) When possible be specific @ -No Did you speak to anyone other than the patient for history (EMS, parent, family, police, friend...)? What history was obtained from this source @ -No Did you review nursing and triage notes (agree or disagree)? Why? @ -I reviewed and agree with nursing and triage notes Were old charts reviewed (outside hosp., previous admission, EMS record, old EKG, old radiological studies, urgent care reports/EKG's, senior living records)? Report findings @ -No old charts were reviewed Differential Diagnosis (chest pain, altered mental status, abdominal pain women, abdominal pain men, vaginal bleeding, weakness, fever, dyspnea, syncope, headache, dizziness, GI bleed, back pain, seizure, CVA, palpatations, mental health, musculoskeletal)? @Differential Abdominal Pain Women: Appendicitis, Cholecystitis, diverticulosis, ischemic bowel, pancreatitis, hepatitis, UTI, gastroenteritis, AAA, incarcerated hernia, bowel obstruction, constipation, inflammatory bowel, hepatitis, peptic ulcer disease, splenic infarction, perforated viscus, vulvitis, ovarian torsion, PID, kidney stone, placenta abruption, this is not meant to be an all-inclusive list EKG interpreted by me (3pts min.). @ -None X-rays interpreted by me (1pt min.). @ -None done CT interpreted by me (1pt min.). @ -CT abdomen pelvis showing no acute intra-abdominal process U/S interpreted by me (1pt. min.). @ -None done What testing was considered but not performed or refused? (CT, X-rays, U/S, labs)? Why? @ -None What meds were considered but not given or refused? Why? @ -None Did you discuss the management of the patient with other professionals (nitish perrin i.e. , PA, KEYPUNCHER, lab, RT, psych nurse, social media executive, digital music instructor, teacher, aoc operations intelligence officer, piano case and bench assembler)? Give summary @ -No Was smoking cessation discussed for >3mins.? @ -No Was critical care preformed (if so, how long)? @ -No Were there social determinants of health that impacted care today? How? (Homelessness, low income, unemployed, alcoholism, drug addiction, transportation, low edu. Level, literacy, decrease access to med. care, half-way, rehab)? @ -No Was there de-escalation of care discussed even if they declined (Discuss DNR or withdrawal of care, Hospice)? DNR status @ -No What co-morbidities impacted this encounter? (DM, HTN, Smoking, COPD, CAD, Cancer, CVA, ARF, Chemo, Hep., AIDS, mental health diagnosis, sleep apnea, morbid obesity)? @ -None Was patient admitted / discharged? Hospital course, mention meds given and route, prescriptions, significant lab abnormalities, going to OR and other pertinent info. @ -Discharge patient presented for abdominal pain. Patient concerned about gallbladder disease workup is negative this time she can follow-up with on-call surgery for HIDA scan for possible biliary dyskinesia she more likely has reducible hernia at present currently. Patient discharged in stable condition Undiagnosed new problem with uncertain prognosis? @ -No Drug Therapy requiring intensive monitoring for toxicity (Heparin, Nitro, Insulin, Cardizem)? @ -No Were any procedures done? @ -No Diagnosis/symptom? @ -Abdominal pain Acute, or Chronic, or Acute on Chronic? @ -Acute Uncomplicated (without systemic symptoms) or Complicated (systemic symptoms)? @ -Uncomplicated Side effects of treatment? @ -No Exacerbation, Progression, or Severe Exacerbation? @ -No Poses a threat to life or bodily function? How? (Chest pain, USA, IA, pneumonia, PE, COPD, DKA, ARF, appy, cholecystitis, CVA, Diverticulitis, Homicidal, Suicidal, threat to staff... and all critical care pts) @ -No - Lab Data Result diagrams: 01/27/24 00:23 01/27/24 00:23 Lab Results 01/27/24 01/27/24 01/27/24 Range/Units 00:23 00:23 00:23 WBC 9.1 (3.8-10.6) k/uL RBC 4.04 (3.80-5.40) m/uL Hgb 12.4 (11.4-16.0) gm/dL Hct 38.3 (34.0-46.0) % MCV 94.7 (80.0-100.0) fL MCH 30.7 (25.0-35.0) pg MCHC 32.4 (31.0-37.0) g/dL RDW 12.5 (11.5-15.5) % Plt Count 254 (150-450) k/uL MPV 7.1 Neutrophils % 55 % Lymphocytes % 38 % Monocytes % 5 % Eosinophils % 1 % Basophils % 0 % Neutrophils # 5.0 (1.3-7.7) k/uL Lymphocytes # 3.4 (1.0-4.8) k/uL Monocytes # 0.4 (0-1.0) k/uL Eosinophils # 0.1 (0-0.7) k/uL Basophils # 0.0 (0-0.2) k/uL Sodium 140 (137-145) mmol/L Potassium 3.8 (3.5-5.1) mmol/L Chloride 105 (98-107) mmol/L Carbon Dioxide 24 (22-30) mmol/L Anion Gap 11 mmol/L BUN 16 (7-17) mg/dL Creatinine 0.77 (0.52-1.04) mg/dL Est GFR (CKD-EPI)AfAm >90 (>60 ml/min/1.73 sqM) Est GFR (CKD-EPI)NonAf >90 (>60 ml/min/1.73 sqM) Glucose 92 (74-99) mg/dL Plasma Lactic Acid Yobani 1.0 (0.7-2.0) mmol/L Calcium 10.0 (8.4-10.2) mg/dL Total Bilirubin 0.6 (0.2-1.3) mg/dL AST 19 (14-36) U/L ALT 12 (4-34) U/L Alkaline Phosphatase 40 (38-126) U/L Total Protein 7.4 (6.3-8.2) g/dL Albumin 4.7 (3.5-5.0) g/dL Lipase 112 (23-300) U/L Urine Color Urine Appearance (Clear) Urine pH (5.0-8.0) Ur Specific [place] (1.001-1.035) Urine Protein (Negative) Urine Glucose (UA) (Negative) Urine Ketones (Negative) Urine Blood (Negative) Urine Nitrite (Negative) Urine Bilirubin (Negative) Urine Urobilinogen (<2.0) mg/dL Ur Leukocyte Esterase (Negative) Urine HCG, Qual (Not Detectd) 01/27/24 01/27/24 Range/Units 00:29 00:29 WBC (3.8-10.6) k/uL RBC (3.80-5.40) m/uL Hgb (11.4-16.0) gm/dL Hct (34.0-46.0) % MCV (80.0-100.0) fL MCH (25.0-35.0) pg MCHC (31.0-37.0) g/dL RDW (11.5-15.5) % Plt Count (150-450) k/uL MPV Neutrophils % % Lymphocytes % % Monocytes % % Eosinophils % % Basophils % % Neutrophils # (1.3-7.7) k/uL Lymphocytes # (1.0-4.8) k/uL Monocytes # (0-1.0) k/uL Eosinophils # (0-0.7) k/uL Basophils # (0-0.2) k/uL Sodium (137-145) mmol/L Potassium (3.5-5.1) mmol/L Chloride (98-107) mmol/L Carbon Dioxide (22-30) mmol/L Anion Gap mmol/L BUN (7-17) mg/dL Creatinine (0.52-1.04) mg/dL Est GFR (CKD-EPI)AfAm (>60 ml/min/1.73 sqM) Est GFR (CKD-EPI)NonAf (>60 ml/min/1.73 sqM) Glucose (74-99) mg/dL Plasma Lactic Acid Yobani (0.7-2.0) mmol/L Calcium (8.4-10.2) mg/dL Total Bilirubin (0.2-1.3) mg/dL AST (14-36) U/L ALT (4-34) U/L Alkaline Phosphatase (38-126) U/L Total Protein (6.3-8.2) g/dL Albumin (3.5-5.0) g/dL Lipase (23-300) U/L Urine Color Colorless Urine Appearance Clear (Clear) Urine pH 7.0 (5.0-8.0) Ur Specific [place] 1.027 (1.001-1.035) Urine Protein Negative (Negative) Urine Glucose (UA) Negative (Negative) Urine Ketones Negative (Negative) Urine Blood Negative (Negative) Urine Nitrite Negative (Negative) Urine Bilirubin Negative (Negative) Urine Urobilinogen <2.0 (<2.0) mg/dL Ur Leukocyte Esterase Negative (Negative) Urine HCG, Qual Not Detected (Not Detectd) Disposition Clinical Impression: Abdominal pain Disposition: HOME SELF-CARE Condition: Stable Instructions (If sedation given, give patient instructions): Abdominal Pain (ED) Additional Instructions: Please return to the Emergency Department if symptoms worsen or any other concerns. Prescriptions: Ondansetron Odt [Zofran Odt] 4 mg PO Q8HR PRN #14 tab PRN Reason: Nausea Is patient prescribed a controlled substance at d/c from ED?: No Referrals: Anders Medeiros MD [Primary Care Provider] - 1-2 days Lucía Cerna DO [Doctor of Osteopathic Medicine] - 1-2 days Time of Disposition: 02:23
[2024-01-27] MEDS: KETOROLAC 15 MG/ML 1 ML VIAL IVP STA (00:32)
[2024-01-27] MEDS: PANTOPRAZOLE 40 MG/10 ML VIAL IVP STA (00:34)
[2024-01-27] MEDS: METOCLOPRAMIDE 5 MG/ML 2 ML VIAL IVP STA (00:38)
[2024-01-27 00:42] LABS: Appearance,Urine Clear (Clear); Bilirubin,Urine Negative (Negative); Blood,Urine Negative (Negative); Color,Urine Colorless; Glucose,Urine (UA) Negative (Negative); Ketones,Urine Negative (Negative); Leukocyte Esterase,Urine Negative (Negative); Nitrite,Urine Negative (Negative); Protein,Urine Negative (Negative); Specific Gravity,Urine 1.027 (1.001-1.035); Urobilinogen,Urine <2.0 mg/dL (<2.0)
[2024-01-27] MEDS: SODIUM CHLORIDE 0.9% 500 ML 500 ML IV STA (00:42)
[2024-01-27 01:08] LABS: Basophils % (A) 0 %; Eosinophils # (A) 0.1 k/uL (0-0.7); Eosinophils % (A) 1 %; HCT 38.3 % (34.0-46.0); HGB 12.4 gm/dL (11.4-16.0); Lymphocytes # (A) 3.4 k/uL (1.0-4.8); Lymphocytes % (A) 38 %; MCH 30.7 pg (25.0-35.0); MCHC 32.4 g/dL (31.0-37.0); MCV 94.7 fL (80.0-100.0); Mean Platelet Volume 7.1; Monocytes # (A) 0.4 k/uL (0-1.0); Monocytes % (A) 5 %; Neutrophils % (A) 55 %; Platelet Count 254 k/uL (150-450); RBC 4.04 m/uL (3.80-5.40); RDW 12.5 % (11.5-15.5); WBC 9.1 k/uL (3.8-10.6)
[2024-01-27 01:19] LABS: ALT 12 U/L (4-34); AST 19 U/L (14-36); African American GFR (CKD) >90 (>60 ml/min/1.73 sqM); Albumin 4.7 g/dL (3.5-5.0); Alkaline Phosphatase 40 U/L (38-126); Anion Gap 11 mmol/L; Blood Urea Nitrogen 16 mg/dL (7-17); Carbon Dioxide 24 mmol/L (22-30); Chloride 105 mmol/L (98-107); Glucose 92 mg/dL (74-99); Lipase 112 U/L (23-300); Non-African American GFR(CKD) >90 (>60 ml/min/1.73 sqM); Potassium 3.8 mmol/L (3.5-5.1); Sodium 140 mmol/L (137-145); Total Bilirubin 0.6 mg/dL (0.2-1.3); Total Protein 7.4 g/dL (6.3-8.2)
--- NOTE | 2024-01-27 02:18 | CT ---
EXAM: CT Abdomen and Pelvis With Intravenous Contrast CLINICAL HISTORY: ITS.REASON CT Reason: abdominal pain TECHNIQUE: Axial computed tomography images of the abdomen and pelvis with intravenous contrast. CTDI is 10.2 mGy and DLP is 428.4 mGy-cm. This CT exam was performed using one or more of the following dose reduction techniques: automated exposure control, adjustment of the mA and/or kV according to patient size, and/or use of iterative reconstruction technique. COMPARISON: No relevant prior studies available. FINDINGS: Lung bases: Unremarkable. No mass. No consolidation. ABDOMEN: Liver: Unremarkable. No mass. Gallbladder and bile ducts: Unremarkable. No calcified stones. No ductal dilation. Pancreas: Unremarkable. No mass. No ductal dilation. Spleen: Unremarkable. No splenomegaly. Adrenals: Unremarkable. No mass. Kidneys and ureters: Unremarkable. No solid mass. No hydronephrosis. Stomach and bowel: Unremarkable. No obstruction. No mucosal thickening. PELVIS: Appendix: No findings to suggest acute appendicitis. Bladder: Unremarkable. No mass. Reproductive: Unremarkable as visualized. ABDOMEN and PELVIS: Intraperitoneal space: Unremarkable. No free air. No significant fluid collection. Bones/joints: No acute fracture. No dislocation. Soft tissues: Unremarkable. Vasculature: Unremarkable. No abdominal aortic aneurysm. Lymph nodes: Unremarkable. No enlarged lymph nodes. IMPRESSION: Normal abdomen and pelvis CT.
[2024-01-27 02:53] VITALS: BP 109/68; PULSE 62; RESP 18; TEMP 97.7
== END 2024-01-27 02:53 | disposition home or self-care (01) ==
LOC: EC 23:58
DX: R10.32 Left lower quadrant pain (principal); R10.11 Right upper quadrant pain; F17.290 Nicotine dependence, other tobacco product, uncomplicated; Z88.2 Allergy status to sulfonamides; Z88.1 Allergy status to other antibiotic agents
CPT/HCPCS: 99284; 96374; 96375 ×2; 96361 ×2; 36415; 80053; 83605; 83690; 85025; 81003; 81025; 74177; J2765; J1885; J2470

== ENCOUNTER 2024-09-13 11:54 | Emergency (ER) | payer OTHER ==
--- NOTE | 2024-09-13 12:41 | ED ---
General Adult HPI - General Chief complaint: Urogenital Stated complaint: Abd pain Time Seen by Provider: 09/13/24 12:04 Source: patient, RN notes reviewed Mode of arrival: ambulatory Limitations: no limitations - History of Present Illness Initial comments: 29-year-old female presenting to emergency department with urinary complaints over the past 3 to 4 days that have been worsening. Patient states that she has been experiencing dysuria, bladder spasms and bladder pain, increased urinary frequency or urgency. Patient was evaluated urgent care yesterday where she was diagnosed with urinary tract infection and started on Cipro. States that her symptoms have not gotten better and have radiated to her right flank. She denies hematuria, vaginal discharge, concern for STIs or STDs. She endorses nausea but no reported emesis. Reports chills with no reported fevers. - Related Data Home Medications Medication Instructions Recorded Confirmed Sertraline [Zoloft] 50 mg PO DAILY 11/10/22 11/14/22 Vit No.179/Iron/Folic 1 tab PO DAILY 11/14/22 11/14/22 [ Tablet] valACYclovir HCL [Valtrex] 1 tab PO DAILY 11/14/22 11/14/22 Previous Rx's Medication Instructions Recorded Acetaminophen Tab [Tylenol] 1,000 mg PO Q6H tab 11/16/22 Ibuprofen [Motrin] 600 mg PO Q6H #60 tab 11/16/22 oxyCODONE HCL [OxyIR] 5 mg PO Q4HR PRN #18 tab 11/16/22 Ondansetron Odt [Zofran Odt] 4 mg PO Q8HR PRN #14 tab 01/27/24 Ondansetron Odt [Zofran Odt] 4 mg PO Q8HR PRN #10 tab 09/13/24 Phenazopyridine [Pyridium] 200 mg PO TID #6 tablet 09/13/24 Allergies Allergy/AdvReac Type Severity Reaction Status Date / Time sulfamethoxazole Allergy Rash/Hives Verified 09/13/24 12:03 [From Bactrim] trimethoprim [From Bactrim] Allergy Rash/Hives Verified 09/13/24 12:03 Review of Systems ROS Statement: Those systems with pertinent positive or pertinent negative responses have been documented in the HPI. ROS Other: All systems not noted in ROS Statement are negative. Past Medical History Additional Past Medical History / Comment(s): IBS History of Any Multi-Drug Resistant Organisms: None Reported Past Surgical History: No Surgical Hx Reported Past Anesthesia/Blood Transfusion Reactions: No Reported Reaction Past Psychological History: Anxiety, Bipolar, Depression Smoking Status: Former smoker, Vaper Past Alcohol Use History: Occasional Past Drug Use History: None Reported - Past Family History Father History Unknown: Yes Family Medical History: Cancer, Diabetes Mellitus, Hypertension General Exam Limitations: no limitations ENT exam: Present: normal exam, mucous membranes moist Neck exam: Present: normal inspection. Absent: tenderness, meningismus, lymphadenopathy Respiratory exam: Present: normal lung sounds bilaterally. Absent: respiratory distress, wheezes, rales, rhonchi, stridor Cardiovascular Exam: Present: regular rate, normal rhythm, normal heart sounds. Absent: systolic murmur, diastolic murmur, rubs, gallop, clicks GI/Abdominal exam: Present: soft, tenderness (suprapubic), normal bowel sounds. Absent: distended, guarding, rebound, rigid Extremities exam: Present: normal inspection, full ROM, normal capillary refill. Absent: tenderness, pedal edema, joint swelling, calf tenderness Back exam: Present: normal inspection, CVA tenderness (R). Absent: CVA tenderness (L) Skin exam: Present: warm, dry, intact, normal color. Absent: rash Course Vital Signs 09/13/24 09/13/24 09/13/24 12:01 13:54 14:26 Temperature 98.3 F 98.1 F Pulse Rate 119 H 85 81 Respiratory 18 16 16 Rate Blood Pressure 112/72 108/69 110/68 O2 Sat by Pulse 98 98 97 Oximetry Medical Decision Making - Medical Decision Making Was pt. sent in by a medical professional or institution (, PA, [facility]ATH[facility] SCRUBBER, urgent care, hospital, or skilled nursing...) When possible be specific @ -No Did you speak to anyone other than the patient for history (EMS, parent, family, police, friend...)? What history was obtained from this source @ -No Did you review nursing and triage notes (agree or disagree)? Why? @ -I reviewed and agree with nursing and triage notes Were old charts reviewed (outside hosp., previous admission, EMS record, old EKG, old radiological studies, urgent care reports/EKG's, skilled nursing records)? Report findings @ -No old charts were reviewed Differential Diagnosis (chest pain, altered mental status, abdominal pain women, abdominal pain men, vaginal bleeding, weakness, fever, dyspnea, syncope, headache, dizziness, GI bleed, back pain, seizure, CVA, palpatations, mental h ealth, musculoskeletal)? @ -Differential Abdominal Pain Women: Appendicitis, Cholecystitis, diverticulosis, ischemic bowel, pancreatitis, hepatitis, UTI, gastroenteritis, AAA, incarcerated hernia, bowel obstruction, constipation, inflammatory bowel, hepatitis, peptic ulcer disease, splenic infarction, perforated viscus, vulvitis, ovarian torsion, PID, kidney stone, placenta abruption, this is not meant to be an all-inclusive list EKG interpreted by me (3pts min.). @ -None X-rays interpreted by me (1pt min.). @ -None done CT interpreted by me (1pt min.). @ -CT imaging of the abdomen pelvis without contrast reveals no acute changes or change as compared to the study clear 01/27/2024 U/S interpreted by me (1pt. min.). @ -None done What testing was considered but not performed or refused? (CT, X-rays, U/S, labs)? Why? @ -None What meds were considered but not given or refused? Why? @ -None Did you discuss the management of the patient with other professionals (prof gonzalez i.eDionna Macias, PA, [facility]ATH[facility] SCRU[employer]ER, lab, RT, psych nurse, social welfare research worker, product safety officer, teacher, low altitude air defense officer, case briefer)? Give summary @ -No Was smoking cessation discussed for >3mins.? @ -No Was critical care preformed (if so, how long)? @ -No Were there social determinants of health that impacted care today? How? (Homelessness, low income, unemployed, alcoholism, drug addiction, transportation, low edu. Level, literacy, decrease access to med. care, alf, rehab)? @ -No Was there de-escalation of care discussed even if they declined (Discuss DNR or withdrawal of care, Hospice)? DNR status @ -No What co-morbidities impacted this encounter? (DM, HTN, Smoking, COPD, CAD, Cancer, CVA, ARF, Chemo, Hep., AIDS, mental health diagnosis, sleep apnea, morbid obesity)? @ -None Was patient admitted / discharged? Hospital course, mention meds given and route, prescriptions, significant lab abnormalities, going to OR and other pertinent info. @ -Discharge. 29-year-old female presenting for complaints of urinary symptoms. Patient has a right CVA tenderness and suprapubic tenderness on examination. She is provided with pain medications and antiemetics and will undergo laboratory testing and CT imaging for further evaluation. Labs reveal mild leukocytosis of 10.9 with left shift neutrophils 8.16. CMP is unremarkable. Urine is concerning for infection with nitrites, leukocytes, white cell clumps of white cells. hCG is negative. CT imaging is unremarkable. Patient will be treated for pyelonephritis with IV push of Rocephin. Patient is currently taking ciprofloxacin and recommend that she continue to take this medication. Patient's urine is sent for culture and states that antibiotic will be changed if necessary. She is provided with a prescription for bladder spasm control and nausea. Recommend follow-up with her primary care provider after antibiotics are completed to ensure infection has resolved. Patient is otherwise understanding in regard to return parameters. Case discussed with my attending Dr. Nelson. Undiagnosed new problem with uncertain prognosis? @ -No Drug Therapy requiring intensive monitoring for toxicity (Heparin, Nitro, Insulin, Cardizem)? @ -No Were any procedures done? @ -No Diagnosis/symptom? @ -Pyelonephritis Acute, or Chronic, or Acute on Chronic? @ -Acute Uncomplicated (without systemic symptoms) or Complicated (systemic symptoms)? @ -Uncomplicated Side effects of treatment? @ -No Exacerbation, Progression, or Severe Exacerbation? @ -No Poses a threat to life or bodily function? How? (Chest pain, USA, GA, pneumonia, PE, COPD, DKA, ARF, appy, cholecystitis, CVA, Diverticulitis, Homicidal, Suicidal, threat to staff... and all critical care pts) @ -No - Lab Data Result diagrams: 09/13/24 12:54 09/13/24 12:54 Lab Results 09/13/24 09/13/24 09/13/24 Range/Units 12:13 12:13 12:54 WBC 10.99 H (4.50-10.00) 10*3/uL RBC 3.76 L (4.10-5.20) 10*6/uL Hgb 11.8 L (12.0-15.0) g/dL Hct 35.5 L (37.2-46.3) % MCV 94.4 (80.0-97.0) fL MCH 31.4 (27.0-32.0) pg MCHC 33.2 (32.0-37.0) g/dL Plt Count 261 (140-440) 10*3/uL MPV 9.2 L (9.5-12.2) fL Immature Gran % (Auto) 0.4 % Neutrophils % 74.2 % Lymphocytes % 13.1 % Monocytes % 11.9 % Eosinophils % 0.1 % Basophils % 0.3 % Immature Gran # 0.04 (0.00-0.04) 10*3/uL Neutrophils # 8.16 H (1.80-7.70) 10*3/uL Lymphocytes # 1.44 (0.90-5.00) 10*3/uL Monocytes # 1.31 H (0.20-1.00) 10*3/uL Eosinophils # 0.01 L (0.04-0.35) 10*3/uL Basophils # 0.03 (0.00-0.10) 10*3/uL Sodium (137-145) mmol/L Potassium (3.5-5.1) mmol/L Chloride (98-107) mmol/L Carbon Dioxide (22-30) mmol/L Anion Gap mmol/L BUN (7-17) mg/dL Creatinine (0.52-1.04) mg/dL Est GFR (CKD-EPI)AfAm (>60 ml/min/1.73 sqM) Est GFR (CKD-EPI)NonAf (>60 ml/min/1.73 sqM) Glucose (74-99) mg/dL Plasma Lactic Acid Yobani (0.7-2.0) mmol/L Calcium (8.4-10.2) mg/dL Total Bilirubin (0.2-1.3) mg/dL AST (14-36) U/L ALT (4-34) U/L Alkaline Phosphatase (38-126) U/L Total Protein (6.3-8.2) g/dL Albumin (3.5-5.0) g/dL Urine Color Dark Brown Urine Appearance Cloudy H (Clear) Urine pH 6.0 (5.0-8.0) Ur Specific Dodge 1.023 (1.001-1.035) Urine Protein 1+ H (Negative) Urine Glucose (UA) Negative (Negative) Urine Ketones 2+ H (Negative) Urine Blood Trace H (Negative) Urine Nitrite Positive H (Negative) Urine Bilirubin 1+ H (Negative) Urine Urobilinogen 2.0 (<2.0) mg/dL Ur Leukocyte Esterase Large H (Negative) Urine RBC 3 (0-5) /hpf Urine WBC 151 H (0-5) /hpf Urine WBC Clumps Rare H (None) /hpf Ur Squamous Epith Cells 35 H (0-4) /hpf Urine Bacteria Rare H (None) /hpf Urine Mucus Many H (None) /hpf Urine HCG, Qual Not Detected (Not Detectd) 09/13/24 09/13/24 Range/Units 12:54 12:54 WBC (4.50-10.00) 10*3/uL RBC (4.10-5.20) 10*6/uL Hgb (12.0-15.0) g/dL Hct (37.2-46.3) % MCV (80.0-97.0) fL MCH (27.0-32.0) pg MCHC (32.0-37.0) g/dL Plt Count (140-440) 10*3/uL MPV (9.5-12.2) fL Immature Gran % (Auto) % Neutrophils % % Lymphocytes % % Monocytes % % Eosinophils % % Basophils % % Immature Gran # (0.00-0.04) 10*3/uL Neutrophils # (1.80-7.70) 10*3/uL Lymphocytes # (0.90-5.00) 10*3/uL Monocytes # (0.20-1.00) 10*3/uL Eosinophils # (0.04-0.35) 10*3/uL Basophils # (0.00-0.10) 10*3/uL Sodium 137 (137-145) mmol/L Potassium 3.6 (3.5-5.1) mmol/L Chloride 104 (98-107) mmol/L Carbon Dioxide 25 (22-30) mmol/L Anion Gap 8 mmol/L BUN 13 (7-17) mg/dL Creatinine 0.57 (0.52-1.04) mg/dL Est GFR (CKD-EPI)AfAm >90 (>60 ml/min/1.73 sqM) Est GFR (CKD-EPI)NonAf >90 (>60 ml/min/1.73 sqM) Glucose 112 H (74-99) mg/dL Plasma Lactic Acid Yobani 0.7 (0.7-2.0) mmol/L Calcium 9.0 (8.4-10.2) mg/dL Total Bilirubin 1.3 (0.2-1.3) mg/dL AST 20 (14-36) U/L ALT 13 (4-34) U/L Alkaline Phosphatase 48 (38-126) U/L Total Protein 7.1 (6.3-8.2) g/dL Albumin 4.2 (3.5-5.0) g/dL Urine Color Urine Appearance (Clear) Urine pH (5.0-8.0) Ur Specific Dodge (1.001-1.035) Urine Protein (Negative) Urine Glucose (UA) (Negative) Urine Ketones (Negative) Urine Blood (Negative) Urine Nitrite (Negative) Urine Bilirubin (Negative) Urine Urobilinogen (<2.0) mg/dL Ur Leukocyte Esterase (Negative) Urine RBC (0-5) /hpf Urine WBC (0-5) /hpf Urine WBC Clumps (None) /hpf Ur Squamous Epith Cells (0-4) /hpf Urine Bacteria (None) /hpf Urine Mucus (None) /hpf Urine HCG, Qual (Not Detectd) Disposition Clinical Impression: Pyelonephritis Disposition: HOME SELF-CARE Condition: Good Instructions (If sedation given, give patient instructions): Kidney Infection (ED) Additional Instructions: Please return to the Emergency Department if symptoms worsen or any other concerns. Prescriptions: Phenazopyridine [Pyridium] 200 mg PO TID #6 tablet Ondansetron Odt [Zofran Odt] 4 mg PO Q8HR PRN #10 tab PRN Reason: Nausea Is patient prescribed a controlled substance at d/c from ED?: No Referrals: None,Stated [Primary Care Provider] - 1-2 days Time of Disposition: 13:57
[2024-09-13 12:46] LABS: Bacteria,Urine Rare /hpf; Bilirubin,Urine 1+ (Negative); Blood,Urine Trace (Negative); Color,Urine Dark Brown; Glucose,Urine (UA) Negative (Negative); Ketones,Urine 2+ (Negative); Leukocyte Esterase,Urine Large (Negative); Mucus,Urine Many /hpf; Nitrite,Urine Positive (Negative); PH, Urine 6.0 (5.0-8.0); Protein,Urine 1+ (Negative); RBC,Urine 3 /hpf (0-5); Specific Gravity,Urine 1.023 (1.001-1.035); Squamous Epithelial Cell,Urine 35 /hpf (0-4); Urobilinogen,Urine 2.0 mg/dL (<2.0); WBC,Urine 151 /hpf (0-5)
[2024-09-13 13:14] LABS: Basophils # (A) 0.03 10*3/uL (0.00-0.10); Basophils % (A) 0.3 %; Eosinophils # (A) 0.01 10*3/uL (0.04-0.35); Eosinophils % (A) 0.1 %; HCT 35.5 % (37.2-46.3); HGB 11.8 g/dL (12.0-15.0); Lymphocytes # (A) 1.44 10*3/uL (0.90-5.00); Lymphocytes % (A) 13.1 %; MCH 31.4 pg (27.0-32.0); MCHC 33.2 g/dL (32.0-37.0); MCV 94.4 fL (80.0-97.0); Monocytes # (A) 1.31 10*3/uL (0.20-1.00); Monocytes % (A) 11.9 %; Neutrophils # (A) 8.16 10*3/uL (1.80-7.70); Neutrophils % (A) 74.2 %; Platelet Count 261 10*3/uL (140-440); RBC 3.76 10*6/uL (4.10-5.20); RDW 12.3 % (11.5-14.5); WBC 10.99 10*3/uL (4.50-10.00)
[2024-09-13] MEDS: ONDANSETRON 4 MG/2 ML VIAL IVP STA (13:14)
[2024-09-13] MEDS: KETOROLAC 15 MG/ML 1 ML VIAL IVP STA (13:14)
[2024-09-13 13:21] LABS: ALT 13 U/L (4-34); AST 20 U/L (14-36); African American GFR (CKD) >90 (>60 ml/min/1.73 sqM); Albumin 4.2 g/dL (3.5-5.0); Alkaline Phosphatase 48 U/L (38-126); Anion Gap 8 mmol/L; Blood Urea Nitrogen 13 mg/dL (7-17); Calcium 9.0 mg/dL (8.4-10.2); Carbon Dioxide 25 mmol/L (22-30); Chloride 104 mmol/L (98-107); Glucose 112 mg/dL (74-99); Non-African American GFR(CKD) >90 (>60 ml/min/1.73 sqM); Potassium 3.6 mmol/L (3.5-5.1); Sodium 137 mmol/L (137-145); Total Protein 7.1 g/dL (6.3-8.2)
--- NOTE | 2024-09-13 13:41 | CT ---
EXAMINATION TYPE: CT abdomen pelvis wo con DATE OF EXAM: 09/13/2024 COMPARISON: 03/28/2023 CLINICAL INDICATION: Female, 29 years old with history of R flank pain; PHH, Right flank pain TECHNIQUE: CT scan of the abdomen and pelvis is performed without oral or IV contrast. CT DLP: 270.[address] CTDI: mGy Automated exposure control for dose reduction was used. FINDINGS: Within the limitations of a non-contrast study, the following observations are made. The paucity of intra-abdominal fat somewhat limits evaluation. The lungs are clear. Gallbladder is normal and there is no gallstone, wall thickening, pericholecystic fluid or distention . There is no biliary ductal dilatation. There is no organomegaly of the liver, pancreas, spleen or adrenal glands. There are no renal calcifications or hydronephrosis. The caliber of the abdominal aorta is normal and there is no retroperitoneal adenopathy or hemorrhage . The bowel loops are normal in caliber is no evidence of obstruction. No inflammatory changes are iden tified in the mesentery and there is no free intraperitoneal air or fluid. The appendix is not seen b ut there is no definite inflammation in the right lower quadrant. There is no pelvic mass, free fluid, abscess or adenopathy. Uterus is retroflexed. The osseous structures and soft tissues are unremarkable. IMPRESSION: Somewhat limited evaluation due to lack of IV contrast and paucity of intra-abdominal fat but no acut e changes within the abdomen or pelvis. No interval change compared to the study of 01/27/2024 [facility], , 09/13/2024 1:39 PM
[2024-09-13 13:57] VITALS: RESP 16; TEMP 98.1
[2024-09-13] MEDS: cefTRIAXone IN SWFI 1,000 MG/10 ML SYRINGE IVP STA (14:15)
[2024-09-13 14:27] VITALS: BP 110/68; PULSE 81
== END 2024-09-13 14:27 | disposition home or self-care (01) ==
LOC: EC 11:54
DX: N12 Tubulo-interstitial nephritis, not specified as acute or chronic (principal); F17.290 Nicotine dependence, other tobacco product, uncomplicated; Z88.2 Allergy status to sulfonamides
CPT/HCPCS: 36415; 80053; 83605; 85025; 81001; 81025; 87086; 74176; 99284; 96374; 96375 ×2; J2405; J0696; J1885